=== PATIENT | male | born 1940 | race Caucasian/White ===

== ENCOUNTER 2020-10-25 00:20 | Emergency (ER) | payer MEDICARE, OTHER, MEDICAID, SELFPAY ==
[2020-10-25 00:26] VITALS: BP 130/69; PULSE 73; RESP 16; TEMP 33.6; O2SAT 94; BMI 29.5
[2020-10-25 00:39] VITALS: BP 143/78; PULSE 72; RESP 18; O2SAT 94
[2020-10-25 02:39] VITALS: BP 144/75; PULSE 66; RESP 18; O2SAT 100
--- NOTE | 2020-10-25 03:22 | XRR_ITS ---
PROCEDURE INFORMATION: Exam: XR Chest Exam date and time: 10/25/2020 3:22 AM Age: 79 years old Clinical indication: Cough; Additional info: Cough, possible aspiration? TECHNIQUE: Imaging protocol: XR of the chest. Views: 1 view. COMPARISON: ID Chest 1 [place] [id number] 09/05/2018 11:12 AM FINDINGS: Tubes, catheters and devices: The right PICC line has been removed. Lungs: Mild left basilar atelectasis and/or infiltrate and/or effusion. Pleural spaces: Unremarkable. No pleural effusion. No pneumothorax. Heart/Mediastinum: Unremarkable. No cardiomegaly. Bones/joints: Stable metallic fixation of the left humerus. XR/XR chest 1V portable [id number] IMPRESSION: Mild left basilar atelectasis and/or infiltrate and/or effusion.
[2020-10-25 04:00] VITALS: BP 161/79; PULSE 84; RESP 16; O2SAT 99
--- NOTE | 2020-10-25 04:26 | W.ED.GENADLT ---
HPI - General Adult General: Chief complaint: General Medical Stated complaint: POSSIBLE ASPIRATED Time Seen by Provider: 10/25/20 00:26 History of Present Illness: HPI narrative: 79-year-old male demented DNR residential patient. He presents after an episode of shortness of breath in the residential, during which he was sneezing several times in a row. Evidently he had a period of apnea following this. He seems to have recovered. He denies being in any pain. He denies having trouble breathing. No history of fever. The patient is a poor historian. Onset (ago): hour(s) Radiation: other Severity: moderate Quality: other Pain Consistency: other Relieving factors: rest Exacerbating factors: none Associated symptoms: Reports confusion (Baseline), cough and dyspnea; Deny chest pain or fevers/chills Review of Systems General: Reports: ROS unobtainable due to mental status Card: Denies: chest pain Resp: Reports: dyspnea Neuro: Reports: confusion (Baseline) Physical Exam Const: COMMON NORMALS: no acute distress and alert GENERAL APPEARANCE: cooperative ORIENTATION/CONSCIOUSNESS: Yes awake and Yes oriented to person HENMT: COMMON NORMALS: normocephalic HEAD & SCALP: normocephalic Eye: COMMON NORMALS: Equal, round and reactive pupils present and EOMs intact bilaterally PUPIL: Yes Equal, round and reactive pupils present Neck/C-Spine: GENERAL: Yes normal visual inspection Chest: COMMONS NORMALS: normal inspection of the chest Resp: COMMON NORMALS: normal respiratory effort, No use of accessory muscles and clear to auscultation bilaterally AUSCULTATION: clear to auscultation bilaterally Cardio: COMMON NORMALS: regular rate and regular rhythm RATE: regular rate RHYTHM: regular rhythm GI: COMMON NORMALS: Normal to inspection, nondistended, normoactive bowel sounds present, Soft to palpation and non-tender PALPATION: Yes Soft to palpation Neuro: SENSORIUM/ORIENTATION: Yes alert and Yes oriented to person Course Vital Signs: Vital signs: Vital Signs Temperature 92.5 F L 10/25/20 00:26 Pulse Rate 66 10/25/20 02:39 Respiratory Rate 18 10/25/20 02:39 Blood Pressure 144/75 10/25/20 02:39 Pulse Oximetry 100 10/25/20 02:39 MDM - General Adult MDM Narrative: Medical decision making narrative: 79-year-old demented male. He is breathing room air. Saturations are from 93 to 100% on room air. He complains of no pain. Chest x-ray shows left basilar atelectasis versus effusion, that is old, and apparent on previous film. No acute changes he will be allowed discharge Discharge Plan Discharge Patient Disposition: Home Clinical Impression: Acute dyspnea Condition: Stable Discharge Orders: Discharge ED (Routine); Ordered 10/25/20 Ordered By: Milan Porter Referrals: [facility] [Other] Patient Instructions: Dyspnea (ED) Activity Restrictions/Additional Instructions: Return for fever greater than 100, worsening shortness of breath, development of chest pain, any other concerning symptoms. Coding Level of Care Code ED Care Associate for Deshawn Bermudez
[2020-10-25 06:00] VITALS: BP 146/89; PULSE 74; RESP 18; O2SAT 96
--- NOTE | 2020-10-25 08:22 | PC.NURSE ---
0700- Received report assumed care. Report stated pt was waiting for Ride, and report called to correction. Continued to observe while in room 3. Breakfast served , warm Bare Hugger on, pt is alert and oriented.
--- NOTE | 2020-10-25 08:52 | PC.NURSE ---
Leaves with [facility]. Alert and stable, ready to go
== END 2020-10-25 08:54 | disposition home or self-care (01) ==
LOC: ER 01:02
PROVIDERS: Emergency Provider Emergency Medicine
DX: R06.00 Dyspnea, unspecified (principal)
CPT/HCPCS: 71045; 99283

== ENCOUNTER 2022-04-07 09:29 | Outpatient (CLI) | payer MEDICARE, OTHER, MEDICAID, SELFPAY ==
[2022-04-07 12:38] LABS: Adenovirus Not Detected (NOT DETECT); Chlamydia Pneumoniae Not Detected (NOT DETECT); Coronavirus 229E,HKU1,NL63,OC4 Not Detected (NOT DETECT); Human Metapneumovirus Not Detected (NOT DETECT); Human Rhinovirus/Enterovirus Detected (NOT DETECT); Influenza A Not Detected (NOT DETECT); Influenza A H1 Not Detected (NOT DETECT); Influenza A H1-2009 Not Detected (NOT DETECT); Influenza A H3 Not Detected (NOT DETECT); Influenza B Not Detected (NOT DETECT); Mycoplasma Pneumoniae Not Detected (NOT DETECT); Parainfluenza Virus Type 1 Not Detected (NOT DETECT); Parainfluenza Virus Type 2 Not Detected (NOT DETECT); Parainfluenza Virus Type 3 Not Detected (NOT DETECT); Parainfluenza Virus Type 4 Not Detected (NOT DETECT); Respiratory Syncytial Virus A Not Detected (NOT DETECT); Respiratory Syncytial Virus B Not Detected (NOT DETECT); SARS-COV-2 Not Detected (NOT DETECT)
[2022-04-07 12:41] LABS: Human Metapneumovirus Not Detected (NOT DETECT); Human Rhinovirus/Enterovirus Detected (NOT DETECT); Results from GEN
== END 2022-04-07 09:30 | disposition home or self-care (01) ==
LOC: LAB 09:30
PROVIDERS: Visit Provider Internal Medicine
DX: J06.9 Acute upper respiratory infection, unspecified (principal)
CPT/HCPCS: 87635; 87801

== ENCOUNTER 2023-03-23 08:53 | Outpatient (CLI) | payer MEDICARE, OTHER, MEDICAID, SELFPAY ==
--- NOTE | 2023-03-23 09:12 | USCV_ITS ---
Wiley Ruiz Age: 82 Gender: M : 1940 Exam Date: 03/23/2023 09:26 Ordering Phys: Stanford Johnson MD Technologist: BASIM Exam Location: [facility]_ Indication: Insufficiency Aortic Velocity @ SMA (cm/s) 88.1 RIGHT KIDNEY LEFT KIDNEY Velocity (cm/s) Velocity (cm/s) Sys/Brown Sys/Brown Resistive Index Resistive Index 112.8 / 14.0 0.88 Proximal Renal Artery 53.7 / 16.5 0.69 131.1 / 20.4 0.84 Mid Renal Artery 35.2 / 7.3 0.79 60.1 / 12.3 0.80 Distal Renal Artery 30.9 / 8.6 0.72 68.5 / 13.4 0.81 Hilar 75.2 / 11.6 0.85 17.7 / 4.2 0.76 Upper Pole 50.1 / 11.3 0.77 39.4 / 11.9 0.70 Mid Pole 24.5 / 7.8 0.68 59.7 / 13.7 0.77 Lower Pole 48.3 / 14.9 0.69 1.50 Renal Aortic Ratio 0.61 Accleration Index (cm/sec2) 1526.0 Hilar 1030.0 0 0 270.00 Upper Pole 961.00 815.00 Mid Pole 360.00 2776.0 Lower Pole 1121.0 0 0 CONCLUSIONS No sonographic evidence of hemodynamically significant renal artery stenosis bilaterally. No hydronephrosis in either kidney Pete Carter MD (Electronically Signed) Final Date: 23 March 2023 13:48 S
== END 2023-03-23 08:54 | disposition home or self-care (01) ==
LOC: RAD 08:53
PROVIDERS: Visit Provider Internal Medicine
DX: N28.9 Disorder of kidney and ureter, unspecified (principal); I70.1 Atherosclerosis of renal artery
CPT/HCPCS: 93975

== ENCOUNTER 2023-09-11 13:52 | Inpatient (IN) | payer MEDICARE, OTHER, MEDICAID, SELFPAY ==
[2023-09-11 13:54] VITALS: BP 163/76; PULSE 81; TEMP 36.5; O2SAT 95; BMI 29.0
--- NOTE | 2023-09-11 13:54 | ECG_ITS ---
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 Measurements Intervals [place] Rate: 79 P: 88 NV: 193 QRS: 53 QRSD: 90 T: 79 QT: 390 QTc: 449 Interpretive Statements SINUS RHYTHM POSSIBLE RIGHT VENTRICULAR CONDUCTION DELAY [RSR (QR) IN V1/V2] Compared to ECG 08/18/2017 05:11:02 Sinus bradycardia no longer present Electronically Signed On 09-11-2023 18:07:20 CDT by Malik Roy M.D. [email or web address]
[2023-09-11 14:22] LABS: Basophils % 0.2 %; Eosinophils # 0.9 10^3/uL (0.0-0.8); Hematocrit 31.3 % (37-53); Lymphocytes # 2.5 10^3/uL (0.8-4.8); Lymphocytes % 21.3 %; Mean Corpuscular HGB Conc 32.9 g/dL (30-55); Mean Corpuscular Hemoglobin 33.2 pg (27-33); Mean Platelet Volume 10.6 fL (7.4-10.4); Monocytes # 0.9 10^3/uL (0.2-0.9); Neutrophils # 7.26 10^3/uL (1.8-7.7); Neutrophils % 62.1 %; Nucleated Red Blood Cells % 0 %; Platelet Count 308 10^3/cmm (157-399); Red Cell Distribution Width 13.2 % (12.1-15.1); White Blood Count 11.68 10^3/uL (3.29-11.43)
--- NOTE | 2023-09-11 14:25 | XRR_ITS ---
PROCEDURE INFORMATION: Exam: XR Right Shoulder Exam date and time: 09/11/2023 2:52 PM Age: 82 years old Clinical indication: Injury or trauma; Fall; Blunt trauma (contusions or hematomas); Shoulder; Left; Additional info: Pain TECHNIQUE: Imaging protocol: Radiologic exam of the right shoulder. Views: 2 or more views. COMPARISON: CR XR chest 1V portable [id number] 10/25/2020 12:45 AM FINDINGS: Bones/joints: Osseous structures are intact. Negative for fracture or dislocation. Soft tissues: Normal. XR/XR shoulder RT min 2V* [id number] IMPRESSION: No acute findings.
--- NOTE | 2023-09-11 14:28 | ED_ITS ---
HPI - Extremity Problem 2 General: Chief complaint: Extremity Injury, Upper Stated complaint: fall Time Seen by Provider: 09/11/23 13:54 Source: patient Mode of arrival: ambulatory History of Present Illness: 82-year-old male presents to the emergen cy room complaining of right shoulder pain. He states he fell yesterday has a bruise on the right shoulder. Denies striking head denies loss of consciousness. MD Complaint: joint pain Course 2 Vital Signs: Vital signs: Vital Signs Temperature 97.7 F 09/11/23 13:54 Pulse Rate 75 09/11/23 15:16 Respiratory Rate 18 09/11/23 15:16 Blood Pressure 156/76 09/11/23 15:16 Pulse Oximetry 94 09/11/23 15:16 Oxygen Delivery Me thod Room Air 09/11/23 15:16 MDM - Extremity (Nontraumatic) Medical Decision Making Patient is elevated white count with signs of a cystitis has an indwelling [place] we got records from the shelter his creatinine is slightly above his usual baseline from the records received he also has a history in the past of E. coli ESBL. He has some dementia but they feel he is off his baseline today suspect that may be why he fell. Given his history of ESBL will admit the patient started on IV antibiotic discussed with hospitalist orders written Medical Records I reviewed the patient's medical records. Lab Data I reviewed the patient's lab results. 09/11/23 14:14 09/11/23 14:16 Radiology Impressions Shoulder X-Ray 09/11/23 14:25 IMPRESSION: No acute findings. Laboratory Results WBC 11.68 10^3/uL (3.29-11.43) H 09/11/23 14:14 RBC 3.10 10^6/uL (3.85-5.65) L 09/11/23 14:14 Hgb 10.30 g/dL (11.27-16.99) L 09/11/23 14:14 Hct 31.3 % (37-53) L 09/11/23 14:14 MCV 101.0 fl (82-101) 09/11/23 14:14 MCH 33.2 pg (27-33) H 09/11/23 14:14 MCHC 32.9 g/dL (30-55) 09/11/23 14:14 RDW 13.2 % (12.1-15.1) 09/11/23 14:14 Plt Count 308 10^3/cmm (157-399) 09/11/23 14:14 MPV 10.6 fL (7.4-10.4) H 09/11/23 14:14 Neut % (Auto) 62.1 % 09/11/23 14:14 Lymph % (Auto) 21.3 % 09/11/23 14:14 [place] % (Auto) 8.0 % 09/11/23 14:14 Eos % (Auto) 8.0 % 09/11/23 14:14 Baso % (Auto) 0.2 % 09/11/23 14:14 Neut # (Auto) 7.26 10^3/uL (1.8-7.7) 09/11/23 14:14 Lymph # (Auto) 2.5 10^3/uL (0.8-4.8) 09/11/23 14:14 [place] # (Auto) 0.9 10^3/uL (0.2-0.9) 09/11/23 14:14 Eos # (Auto) 0.9 10^3/uL (0.0-0.8) H 09/11/23 14:14 Baso # (Auto) 0.0 10^3/uL (0.0-0.1) 09/11/23 14:14 Nucleated RBC % (auto) 0 % 09/11/23 14:14 Nucleated RBCs # 0.0 /100WBC 09/11/23 14:14 Sodium 134 mmol/L (136-145) L 09/11/23 14:16 Potassium 5.3 mmol/L (3.5-5.1) H 09/11/23 14:16 Chloride 99 mmol/L (98-107) 09/11/23 14:16 Carbon Dioxide 25 mmol/L (22-29) 09/11/23 14:16 Anion Gap 15.3 (5-19) 09/11/23 14:16 BUN 42 mg/dL (8-23) H 09/11/23 14:16 Creatinine 1.7 mg/dL (0.7-1.2) H 09/11/23 14:16 GFR Calculation Not Reportable 09/11/23 14:16 Glucose 180 mg/dL (65-115) H 09/11/23 14:16 Calculated Osmolality 293 mOsm/kg (285-295) 09/11/23 14:16 Lactic Acid 1.4 mmol/L (0.5-2.2) 09/11/23 15:32 Calcium 8.5 mg/dL (8.5-10.5) 09/11/23 14:16 Total Bilirubin 0.2 mg/dL (0.15-1.2) 09/11/23 14:16 AST 5 U/L (0-40) 09/11/23 14:16 ALT < 5 U/L (0-41) 09/11/23 14:16 Alkaline Phosphatase 138 U/L (40-130) H 09/11/23 14:16 Creatine Kinase 63 U/L (39-308) 09/11/23 14:16 Total Protein 6.9 g/dL (6.6-8.7) 09/11/23 14:16 Albumin 3.2 g/dL (3.5-5.2) L 09/11/23 14:16 Globulin 3.7 g/dL (1.3-4.6) 09/11/23 14:16 Urine Color Yellow (Yellow) 09/11/23 14:09 Urine Appearance Hazy (CLEAR) A 09/11/23 14:09 Urine pH 8 (5-7) H 09/11/23 14:09 Ur Specific [place] 1.010 (1.005-1.030) 09/11/23 14:09 Urine Protein 3+ (Negative) H 09/11/23 14:09 Urine Glucose (UA) Norm (Normal) 09/11/23 14:09 Urine Ketones Negative (Negative) 09/11/23 14:09 Urine Blood 2+ (Negative) H 09/11/23 14:09 Urine Nitrate Positive (Negative) H 09/11/23 14:09 Urine Bilirubin 2+ (Negative) H 09/11/23 14:09 Prot Sulfosalicylic Acd Positive (Negative) 09/11/23 14:09 Urine Urobilinogen 8 mg/dL (Negative) H 09/11/23 14:09 Ur Leukocyte Esterase 2+ (Negative) H 09/11/23 14:09 Urine RBC 0-4 /hpf (0-2) H 09/11/23 14:09 Urine WBC 55-80 /hpf (0-5) H 09/11/23 14:09 Ur Squamous Epith Cells 0-4 /hpf (0-5) H 09/11/23 14:09 Ur Transition Epith Cell 0-4 /hpf 09/11/23 14:09 Triple Phos Crystals 10-15 /hpf H 09/11/23 14:09 Amorphous Sediment Not Reportable 09/11/23 14:09 Urine Bacteria 2+ /hpf (NONE) H 09/11/23 14:09 All radiology interpretation(s) finalized by discharge Discharge Plan Discharge Patient Disposition: Admitted As Inpatient Admit Provider: Deanna Montgomery Clinical Impression: Cystitis, Encephalopathy, Dementia Condition: Stable Coding Level of Care Code ED Metallographer for Deshawn Bermudez
--- NOTE | 2023-09-11 14:35 | PC.PHAR ---
Addendum entered by Felisa Burton 09/11/23 15:29: [facility], [facility] Original Note: [facility] L[facility] 2:35PM 09/11/23
[2023-09-11 14:41] LABS: Albumin Level 3.2 g/dL (3.5-5.2); Alkaline Phosphatase 138 U/L (40-130); Blood Urea Nitrogen 42 mg/dL (8-23); Calcium 8.5 mg/dL (8.5-10.5); Carbon Dioxide 25 mmol/L (22-29); Chloride 99 mmol/L (98-107); Creatine Phosphokinase 63 U/L (39-308); Creatinine Clr Calc Pharmacy 34.1944; Globulin 3.7 g/dL (1.3-4.6); Glucose 180 mg/dL (65-115); Osmolality Calculated 293 mOsm/kg (285-295); Sodium 134 mmol/L (136-145); Total Bilirubin 0.2 mg/dL (0.15-1.2); Total Protein 6.9 g/dL (6.6-8.7)
[2023-09-11 14:44] LABS: Anion Gap 15.3 (5-19); Potassium 5.3 mmol/L (3.5-5.1)
[2023-09-11 14:48] LABS: Urine Appearance Hazy (CLEAR); Urine Color Yellow (Yellow); pH Urine 8 (5-7)
[2023-09-11 14:49] LABS: Bilirubin Urine 2+ (Negative); Blood Urine 2+ (Negative); Glucose Urine UA Norm (Normal); Ketones Urine Negative (Negative); Nitrate Urine Positive (Negative); Protein Urine 3+ (Negative); Sulfosalicylic Acid Urine Positive (Negative)
[2023-09-11 14:50] LABS: Add Urine Microscopic? YES; Leukocyte Esterase Urine 2+ (Negative); Urobilinogen Urine 8 mg/dL (Negative)
[2023-09-11 14:51] LABS: RBC Urine 0-4 /hpf (0-2)
[2023-09-11 14:52] LABS: Bacteria Urine 2+ /hpf; Squamous Epithelial Cell Urine 0-4 /hpf (0-5); Transitional Epi Cells Urine 0-4 /hpf; WBC Urine 55-80 /hpf (0-5)
[2023-09-11 14:52] LABS: Alanine Aminotransferase < 5 U/L (0-41); Aspartate Amino Transferase 5 U/L (0-40)
[2023-09-11 14:53] LABS: Add Urine Culture? Yes
[2023-09-11] MEDS: HYDROcodone-acetaminophen 5-325 mg Tablet 1 TAB PO (15:06)
[2023-09-11 15:16] VITALS: BP 156/76; PULSE 75; RESP 18; O2SAT 94
[2023-09-11 16:02] LABS: Lactic Sepsis W/Reflex 1.4 mmol/L (0.5-2.2)
[2023-09-11] MEDS: piperacillin-tazobactam 3.375 GM in sodium chloride 0.9% (plus) 50 ML IV (16:06)
[2023-09-11] MEDS: sodium chloride 0.9% 1,000 ML 999 ML IV (16:25)
--- NOTE | 2023-09-11 17:29 | PM.HP ---
Providers/Chief Complaint Chief Complaint: fall History of Present Illness Wiley Ruiz is a 82 year old male Medications/Allergies Home Medications Medication Instructions Recorded Confirmed Last Taken Type acetaminophen 325 mg tablet 650 mg PO Q6H PRN PAIN OR ELEVATED 09/11/23 09/11/23 09/10/23 History TEMP aluminum-mag hydroxide-simethicone 30 ml PO Q8H PRN UPSET STOMACH 09/11/23 09/11/23 Unknown History 200 mg-200 mg-20 mg/5 mL oral susp aspirin 81 mg tablet,delayed 81 mg PO DAILY 09/11/23 09/11/23 09/11/23 History release atorvastatin 20 mg tablet 20 mg PO BEDTIME 09/11/23 09/11/23 09/10/23 History bisacodyl 10 mg rectal suppository 10 mg SC DAILY PRN Constipation 09/11/23 09/11/23 Unknown History cholecalciferol (vitamin D3) 1,250 1,250 mcg PO Q7D 09/11/23 09/11/23 09/06/23 History mcg (50,000 unit) tablet clonidine HCl 0.1 mg tablet 0.1 mg PO BID PRN ELEVATED BP 09/11/23 09/11/23 Unknown History cyanocobalamin (vitamin B-12) 1,000 mcg PO DAILY 09/11/23 09/11/23 09/11/23 History 1,000 mcg tablet (Vitamin B-12) furosemide 20 mg tablet 20 mg PO .QODAM 09/11/23 09/11/23 09/10/23 History glucagon 1 mg solution for 1 mg IM ONCE PRN Anaphylaxis 09/11/23 09/11/23 Unknown History injection (Glucagon Emergency Kit) insulin glargine 100 unit/mL (3 38 unit SUBCUT BEDTIME 09/11/23 09/11/23 09/10/23 History mL) subcutaneous pen (Lantus Solostar U-100 Insulin) insulin lispro 100 unit/mL 12 unit SUBCUT TID 09/11/23 09/11/23 09/11/23 History subcutaneous pen ipratropium 0.5 mg-albuterol 3 mg 3 ml inhalation Q6H PRN Shortness 09/11/23 09/11/23 Unknown History (2.5 mg base)/3 mL nebulization Of Breath soln magnesium hydroxide 400 mg/5 mL 30 ml PO DAILY PRN Constipation 09/11/23 09/11/23 09/10/23 History oral suspension (Milk of Magnesia) memantine 14 mg capsule 14 mg PO QAM 09/11/23 09/11/23 09/11/23 History sprinkle,extended release 24hr metoprolol succinate 50 mg 50 mg PO QAM 09/11/23 09/11/23 09/11/23 History tablet,extended release 24 hr naloxone 2 mg/2 mL syringe kit 2 mg IM Q2M PRN OVERDOSE 09/11/23 09/11/23 Unknown History omeprazole 20 mg capsule,delayed 20 mg PO QAM 09/11/23 09/11/23 09/11/23 History release ondansetron HCl 4 mg tablet 4 mg PO Q4H PRN Nausea And Vomiting 09/11/23 09/11/23 Unknown History phenazopyridine 95 mg tablet 95 mg PO BID 09/11/23 09/11/23 09/11/23 History polyethylene glycol 3350 17 17 g PO BID 09/11/23 09/11/23 09/11/23 History gram/dose oral powder (Miralax) sennosides 8.6 mg-docusate sodium 2 tab-cap PO BID 09/11/23 09/11/23 09/11/23 History 50 mg tablet (Senokot-S) tramadol 50 mg tablet 50 mg PO Q8H PRN Pain 09/11/23 09/11/23 09/10/23 History trospium 20 mg tablet 20 mg PO DAILY 09/11/23 09/11/23 09/11/23 History Allergies Allergy/AdvReac Type Severity Reaction Status Date / Time citalopram [From Celexa] Allergy Unknown Verified 09/11/23 15:06 donepezil [From Aricept] Allergy Unknown Verified 09/11/23 15:06 Vitals/I&O/Wt Last Vital Signs Temp 97.7 F 09/11/23 13:54 Pulse 75 09/11/23 15:16 Resp 18 09/11/23 15:16 BP 156/76 09/11/23 15:16 Pulse Ox 94 09/11/23 15:16 O2 Del Method Room Air 09/11/23 15:16 Weight last 48 hrs Weight 81.647 kg Data 09/11/23 14:14 09/11/23 14:16 Micro: Microbiology 09/11/23 15:32 Blood Culture - Preliminary Blood SPECIMEN COLLECTED 09/11/23 15:32 Blood Culture - Preliminary Blood SPECIMEN COLLECTED Coding Level of Care Code Acute Code for [facility]
[2023-09-11] MEDS: meropenem 1,000 MG in sodium chloride 0.9% (plus) 50 ML 100 MG IV (18:13)
[2023-09-11 18:33] VITALS: BP 145/71; PULSE 77; RESP 18; O2SAT 95
[2023-09-11] MEDS: diphenhydrAMINE 50 mg/mL SDV 1mL 12.5 MG IVP (18:38)
[2023-09-11 19:25] VITALS: BP 175/76; PULSE 77; RESP 18; TEMP 36.4; O2SAT 93
--- NOTE | 2023-09-11 20:14 | PM.HP ---
Providers/Chief Complaint Admitting Physician: Deanna Montgomery MD Chief Complaint: fall History of Present Illness Wiley Ruiz is a 82 year old male With past medical history of UTI ESBL, dementia, hyperlipidemia, major depressive disorder, iron deficiency anemia, dysphagia, COPD, GERD, BPH, type 2 diabetes mellitus, hypertension, CKD, urinary retention on chronic Sandoval, vitamin D deficiency who presented to the hospital today after he sustained a fall at the custodial. He complained of right shoulder pain. He also was slightly lethargic. On arrival to ER shoulder x-ray was obtained which showed no acute findings. Patient denied hitting his head anywhere. I called the custodial and spoke to patient's nurse. She said that earlier today when he tried to get up out of bed to eat his peanut butter jelly sandwich he lost his balance tripped and fell. He did not hit his head anywhere. He did not complain of any dizziness prior to falling. He did not lose consciousness. She also says for the last few weeks he has had a lot of cough and it has been productive of yellow to bianchi sputum. He has had a fever 99 Fahrenheit. He also has been having nausea vomiting for the last few days. However he has not vomited today. Records reviewed from custodial. [facility] stated that patient was mentally slightly off his baseline. WBC 11.16, hemoglobin 10.3, potassium 5.3, sodium 134, creatinine 1.7, UA positive for 2+ blood, nitrate, 2+ leukocyte esterase, 2+ bacteria, 55-80 WBCs. When seen patient states he is at the hospital knows his name date of but does not know who the president is. Unable to tell me what year it is. Tells me he is feeling okay at this time. He said earlier he was having shoulder pain however that has resolved by now. Patient is a poor historian. Medications/Allergies Home Medications Medication Instructions Recorded Confirmed Last Taken Type acetaminophen 325 mg tablet 650 mg PO Q6H PRN PAIN OR ELEVATED 09/11/23 09/11/23 09/10/23 History TEMP aluminum-mag hydroxide-simethicone 30 ml PO Q8H PRN UPSET STOMACH 09/11/23 09/11/23 Unknown History 200 mg-200 mg-20 mg/5 mL oral susp aspirin 81 mg tablet,delayed 81 mg PO DAILY 09/11/23 09/11/23 09/11/23 History release atorvastatin 20 mg tablet 20 mg PO BEDTIME 09/11/23 09/11/23 09/10/23 History bisacodyl 10 mg rectal suppository 10 mg DC DAILY PRN Constipation 09/11/23 09/11/23 Unknown History cholecalciferol (vitamin D3) 1,250 1,250 mcg PO Q7D 09/11/23 09/11/23 09/06/23 History mcg (50,000 unit) tablet clonidine HCl 0.1 mg tablet 0.1 mg PO BID PRN ELEVATED BP 09/11/23 09/11/23 Unknown History cyanocobalamin (vitamin B-12) 1,000 mcg PO DAILY 09/11/23 09/11/23 09/11/23 History 1,000 mcg tablet (Vitamin B-12) furosemide 20 mg tablet 20 mg PO .QODAM 09/11/23 09/11/23 09/10/23 History glucagon 1 mg solution for 1 mg IM ONCE PRN Anaphylaxis 09/11/23 09/11/23 Unknown History injection (Glucagon Emergency Kit) insulin glargine 100 unit/mL (3 38 unit SUBCUT BEDTIME 09/11/23 09/11/23 09/10/23 History mL) subcutaneous pen (Lantus Solostar U-100 Insulin) insulin lispro 100 unit/mL 12 unit SUBCUT TID 09/11/23 09/11/23 09/11/23 History subcutaneous pen ipratropium 0.5 mg-albuterol 3 mg 3 ml inhalation Q6H PRN Shortness 09/11/23 09/11/23 Unknown History (2.5 mg base)/3 mL nebulization Of Breath soln magnesium hydroxide 400 mg/5 mL 30 ml PO DAILY PRN Constipation 09/11/23 09/11/23 09/10/23 History oral suspension (Milk of Magnesia) memantine 14 mg capsule 14 mg PO QAM 09/11/23 09/11/23 09/11/23 History sprinkle,extended release 24hr metoprolol succinate 50 mg 50 mg PO QAM 09/11/23 09/11/23 09/11/23 History tablet,extended release 24 hr naloxone 2 mg/2 mL syringe kit 2 mg IM Q2M PRN OVERDOSE 09/11/23 09/11/23 Unknown History omeprazole 20 mg capsule,delayed 20 mg PO QAM 09/11/23 09/11/23 09/11/23 History release ondansetron HCl 4 mg tablet 4 mg PO Q4H PRN Nausea And Vomiting 09/11/23 09/11/23 Unknown History phenazopyridine 95 mg tablet 95 mg PO BID 09/11/23 09/11/23 09/11/23 History polyethylene glycol 3350 17 17 g PO BID 09/11/23 09/11/23 09/11/23 History gram/dose oral powder (Miralax) sennosides 8.6 mg-docusate sodium 2 tab-cap PO BID 09/11/23 09/11/23 09/11/23 History 50 mg tablet (Senokot-S) tramadol 50 mg tablet 50 mg PO Q8H PRN Pain 09/11/23 09/11/23 09/10/23 History trospium 20 mg tablet 20 mg PO DAILY 09/11/23 09/11/23 09/11/23 History Allergies Allergy/AdvReac Type Severity Reaction Status Date / Time citalopram [From Celexa] Allergy Unknown Verified 09/11/23 15:06 donepezil [From Aricept] Allergy Unknown Verified 09/11/23 15:06 Vitals/I&O/Wt Last Vital Signs Temp 97.7 F 09/11/23 13:54 Pulse 77 09/11/23 18:33 Resp 18 09/11/23 18:33 BP 145/71 09/11/23 18:33 Pulse Ox 95 09/11/23 18:33 O2 Del Method Room Air 09/11/23 15:16 Weight last 48 hrs Weight 81.647 kg Physical Exam Narrative: General: Alert oriented x3, patient seen laying in bed, pleasantly confused however able to provide some history HEENT: Normocephalic, atraumatic, EOMI, breathing room air Cardio: Regular rate rhythm, normal S1-S2 Respiratory: Good bilateral air entry, no wheezes no rhonchi appreciated GI: Abdomen soft, nontender, nondistended, bowel sounds + Extremities: no edema b/l le Data 09/11/23 14:14 09/11/23 14:16 Micro: Microbiology 09/11/23 15:32 Blood Culture - Preliminary Blood SPECIMEN COLLECTED 09/11/23 15:32 Blood Culture - Preliminary Blood SPECIMEN COLLECTED A&P Assessment and plan (1) UTI (urinary tract infection): UA abnormal Remove old sandoval and replace with new, culture tip hx of e.coli esbl sensitive only to carbapenem class, place on meropenem check urine culture check blood culture continue ns 75 c/hr continue trospium (2) History of ESBL E. coli infection: see above (3) Cystitis: see above (4) Fall: did not hit his head right shoulder xray shows no acute pathology will need PT eval (5) Right shoulder pain: see above (6) Urinary retention: chronic sandoval in place will replace (7) BPH (benign prostatic hyperplasia): chronic sandoval (8) Chronic indwelling Sandoval catheter: see above (9) Dementia: As per [facility] has some sundowning occasionally. Continue to monitor Place sitter if needed. (10) HLD (hyperlipidemia): atrovastatin 20 daily (11) MDD (major depressive disorder): stable at this time (12) COPD (chronic obstructive pulmonary disease): not in exacerbation, on room air (13) GERD (gastroesophageal reflux disease): omeprazole 20 daily (14) Type 2 diabetes mellitus: lantus 30 units nightly, dose reduced 2/2 to ALIZA and n/v history mod dose intensity ssi check BG AC/HS (15) CKD (chronic kidney disease): Dont have baseline creatitinine Today 1.7. Continue fluids, pt appears dehydrated (16) Vitamin D deficiency: continue vit d (17) Dysphagia: On regular diet at [facility] with small easy to chew bite sized food continue above (18) Hypertension: takes PRN clonidine. Will hold off for now continue metoprolol 50 daily may add amlodipine if needed i would avoid clonidine in elderly (19) Nausea & vomiting: pt appears dehydrated will continue on ns 75 cc/hr hold home lasix zofran q4h prn n/v Plan Given patient's history of nausea vomiting and coughs productive of sputum. I will treat for COPD exacerbation. Placed on DuoNeb every 6 hours as needed, sputum Gram stain culture. I will check a chest x-ray. Meropenem should be sufficient. If chest x-ray shows evidence of consolidation or infiltrate, I may add for MRSA coverage with vancomycin. DNR/DNI as per paperwork from [place]. and daughter in agreement with DNR/DNI for now. and daughter updated via phone. Attestations Medical Necessity Statement*: > 2 midnight stay for mgmt of UTI Diagnoses UTI (urinary tract infection) N39.0 History of ESBL E. coli infection Z86.19 Cystitis N30.90 Fall W19.XXXA Right shoulder pain M25.511 Urinary retention R33.9 BPH (benign prostatic hyperplasia) N40.0 Chronic indwelling Sandoval catheter Z97.8 Dementia F03.90 HLD (hyperlipidemia) E78.5 MDD (major depressive disorder) F32.9 COPD (chronic obstructive pulmonary disease) J44.9 GERD (gastroesophageal reflux disease) K21.9 Type 2 diabetes mellitus E11.9 CKD (chronic kidney disease) N18.9 Vitamin D deficiency E55.9 Dysphagia R13.10 Hypertension I10 Nausea & vomiting R11.2
--- NOTE | 2023-09-11 20:38 | XRR_ITS ---
PROCEDURE INFORMATION: Exam: XR Chest Exam date and time: 09/11/2023 8:46 PM Age: 82 years old Clinical indication: Other: R/O pna TECHNIQUE: Imaging protocol: Radiologic exam of the chest. Views: 1 view. COMPARISON: CR XR chest 1V portable [id number] 10/25/2020 12:45 AM FINDINGS: Lungs: Curvilinear atelectasis or scarring at the left lung base. No consolidation. Pleural spaces: Unremarkable. No pleural effusion. No pneumothorax. Heart/Mediastinum: Unremarkable. No cardiomegaly. Bones/joints: Unremarkable. XR/XR chest 1V portable [id number] IMPRESSION: No acute findings.
[2023-09-11 20:42] LABS: Glucose Point of Care 109 mg/dL (70-110)
[2023-09-11 20:54] VITALS: BMI 28.5
[2023-09-11 21:19] LABS: Thyroid Stimulating Hormone 4.41 uIU/mL (0.27-4.20)
[2023-09-11 21:27] VITALS: BP 143/76
[2023-09-11 21:50] LABS: Estmated Average Glucose 120; Hemoglobin A1C 5.8 % (4.0-6.0)
[2023-09-11] MEDS: sodium chloride 0.9% 1,000 ML 100 ML IV (22:07)
[2023-09-11] MEDS: atorvastatin 40 mg Tablet 20 MG PO (22:08)
[2023-09-11] MEDS: heparin 5,000 unit/mL INJ 1 mL 5000 UNIT SUBCUT (22:08)
[2023-09-12] VITALS (9 sets, daily range): BP systolic 108–165; BP diastolic 57–76; PULSE 67–71; RESP 16–20; TEMP 36.5–36.9; O2SAT 91–94; BMI 29.1
[2023-09-12] MEDS: meropenem 500 MG in sodium chloride 0.9% (plus) 50 ML 100 MG IV ×3 (01:08→17:46)
[2023-09-12] MEDS: morphine IR 15 mg Tablet PO (01:08)
[2023-09-12 05:08] LABS: Basophils % 0.4 %; Eosinophils % 11.7 %; Hematocrit 31.7 % (37-53); Lymphocytes # 2.3 10^3/uL (0.8-4.8); Lymphocytes % 27.9 %; Mean Corpuscular HGB Conc 30.6 g/dL (30-55); Mean Corpuscular Hemoglobin 32.2 pg (27-33); Mean Corpuscular Volume 105.3 fl (82-101); Mean Platelet Volume 10.5 fL (7.4-10.4); Monocytes # 0.6 10^3/uL (0.2-0.9); Monocytes % 7.5 %; Neutrophils # 4.29 10^3/uL (1.8-7.7); Neutrophils % 52.1 %; Nucleated Red Blood Cells % 0 %; Platelet Count 267 10^3/cmm (157-399); Red Blood Count 3.01 10^6/uL (3.85-5.65); Red Cell Distribution Width 13.2 % (12.1-15.1); White Blood Count 8.23 10^3/uL (3.29-11.43)
[2023-09-12 05:31] LABS: Anion Gap 14.9 (5-19); Blood Urea Nitrogen 38 mg/dL (8-23); C Reactive Protein 6.1 mg/L (0.0-4.9); Calcium 8.4 mg/dL (8.5-10.5); Carbon Dioxide 24 mmol/L (22-29); Chloride 105 mmol/L (98-107); Creatine Phosphokinase 43 U/L (39-308); Glucose 76 mg/dL (65-115); Magnesium 2.4 mg/dL (1.7-2.3); Osmolality Calculated 296 mOsm/kg (285-295); Phosphorus 3.1 mg/dL (2.5-4.5); Potassium 4.9 mmol/L (3.5-5.1); Sodium 139 mmol/L (136-145)
[2023-09-12 05:32] LABS: Creatinine Clr Calc Pharmacy 34.2435
--- NOTE | 2023-09-12 05:39 | PC.NURSE ---
Verbal orders received from Dr. Laird to replace Morelos catheter, old Morelos catheter removed and tip of catheter noted to be intact but purulent, 16 Indonesian Morelos catheter placed 10 ml balloon inflated, patient tolerated well, 200 ml purulent urine returned. Telephone orders received to hold night time dose of 30 units of lantus, and change memantine dose to 5 mg po BID.
[2023-09-12] MEDS: metoprolol succinate ER (24 HR) 50 mg Tablet PO (05:56)
[2023-09-12 06:38] LABS: Glucose Point of Care 59 mg/dL (70-110)
[2023-09-12 07:40] LABS: Glucose Point of Care 63 mg/dL (70-110)
[2023-09-12] MEDS: cyanocobalamin 1,000 mcg Tablet 1000 MCG PO (08:27)
[2023-09-12] MEDS: sodium chloride 0.9% 1,000 ML 100 ML IV (08:27)
[2023-09-12] MEDS: memantine 5 mg tablet PO ×2 (08:27→17:46)
[2023-09-12] MEDS: sennosides-docusate Tablet 1 TAB PO (08:27)
[2023-09-12] MEDS: heparin 5,000 unit/mL INJ 1 mL 5000 UNIT SUBCUT ×2 (08:27→21:57)
[2023-09-12] MEDS: aspirin 81 mg EC Tablet PO (08:27)
[2023-09-12] MEDS: pantoprazole DR 40 mg Tablet PO (08:27)
[2023-09-12 08:30] LABS: Glucose Point of Care 58 mg/dL (70-110)
[2023-09-12 08:30] LABS: Glucose Point of Care 63 mg/dL (70-110)
[2023-09-12] MEDS: dextrose 10% 1,000 ML 100 ML IV (08:39)
[2023-09-12 09:18] LABS: Glucose Point of Care 81 mg/dL (70-110)
--- NOTE | 2023-09-12 09:21 | PC.CHAP ---
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 [] Patient/Family/Request visit [] Outpatient visit [] Follow-up visit [] Physician referral [] Code/Alert [] Routine visit [] Staff referral [] Actively dying [x] Patient sleeping [] Family support [] [] Out of room [] Palliative care [] [] Receiving care in room [] Pre-surgical visit [] Trauma [] Long length of stay [] ICU visit [] Other: Relational/Emotional Strength [] Patient feels connected with others/family/visitors/staff [] Distress [] Loneliness/isolation [] Abandonment Spirituality of Patient [] Person of Tiny [] Attends Cheondoism of their Tiny [] Believes in Prayer [] Reads Bible or Moravian materials [] There are Spiritual issues to be addressed Delinquency Prevention Officer Interventions [] Prayer [] Active listening [] Non-anxious presence [] Spiritual/emotional support [] Crisis/trauma care [] Spiritual counseling [] Bereavement support [] Provided bereavement packet [] Provided Bible/devotional materials [] Provided toy/stuffed animal, coloring book to patient or family member [] Provided Communion [] Anointing/[place] [] Salvation [] Completed spiritual assessment [] Other: Impact on Illness or Injury [] Angry [] Fearful [] Anxious [] Often cries [] Exhaustion [] Unable to work [] Unable to attend evangelical [] Unable to walk/stand [] Unable to read [] Unable to drive [] Unable to eat/drink [] Unable to sleep [] Unable to be with family [] Patient intubated [] Other: Summary Time spent with patient
--- NOTE | 2023-09-12 09:56 | P.PN_ITS ---
Subjective 2 Subjective: Patient is a poor historian but not endorsing any active complaints or pain When asked about his date of , he was able to tell me correctly No active sign of confusion Creatinine is 1.7 today Patient is able to tell me that [facility] is [facility] [place] [facility] [place] Patient became hypoglycemic, insulin was held, I will start him on D10 IV fluids Vitals/I&O/Wt Last Vital Signs Temp 97.8 F 09/12/23 07:53 Pulse 68 09/12/23 09:04 Resp 18 09/12/23 09:04 BP 154/76 09/12/23 07:53 Pulse Ox 94 09/12/23 09:04 O2 Del Method Nasal Cannula 09/12/23 09:04 O2 Flow Rate 2 09/12/23 09:04 09/11/23 09/12/23 09/12/23 22:59 06:59 14:59 Intake Total 1220 / 1220 250 / 1470 2240 / 2240 Output Total 1000 / 1000 Balance 1220 / 1220 -750 / 470 2240 / 2240 Weight last 48 hrs Weight 81.902 kg Weight 80.195 kg Weight 81.647 kg Physical Exam 2 Narrative: Clinical signs of dehydration Awake and alert No significant signs of hypoglycemia Hemodynamic stable currently on 1.5 to 2 L of oxygen via nasal cannula Grade 1 hypertension Abdomen is soft No acute Rester distress No active wheezing or crackles Urinary Catheter Management: Morelos: Cath Placed During This Visit: yes Reason for Continuing Indwelling Catheter: Chronic Indwelling Urinary Catheter on Admission Urinary Catheter Date of Insertion: 09/12/23 Urinary Catheter Time of Insertion: 04:15 Data 09/12/23 04:53 09/12/23 04:53 Micro: Microbiology 09/11/23 14:09 Urine Culture - Preliminary Urine,Clean Catch Gram Negative Rods Gram Negative Rods#2 09/11/23 15:32 Blood Culture - Preliminary Blood SPECIMEN COLLECTED 09/11/23 15:32 Blood Culture - Preliminary Blood SPECIMEN COLLECTED A&P Assessment and plan (1) MDD (major depressive disorder): (2) Hypertension: (3) Type 2 diabetes mellitus: (4) Nausea & vomiting: (5) Chronic indwelling Morelos catheter: (6) UTI (urinary tract infection): (7) BPH (benign prostatic hyperplasia): (8) History of ESBL E. coli infection: (9) Right shoulder pain: (10) Encephalopathy: (11) Dementia: (12) COPD (chronic obstructive pulmonary disease): (13) Acute kidney injury superimposed on chronic kidney disease: Plan Hypoglycemia: Started D10 IV fluids at 100 mill per hour will check sugar every hour Acute on chronic kidney disease Continue D10 IV fluids for now Patient clinically is extremely dehydrated Recent fall: No sign of rhabdomyolysis: CPK within normal limit Check free T4 abnormal TSH noted Chronic indwelling catheter, Urine culture growing gram-negative jelani history of ESBL, continue meropenem at this point, he is afebrile, Type 2 diabetes, Hemoglobin A1c is 5.8 Considering chronic kidney disease this patient should be on a very low-dose insulin he takes very high-dose 38 units of Lantus along sliding scale Metabolic encephalopathy: Resolved Uses a walker for ambulation Disposition: [place] [facility] [place] [facility] Attestations 2 Medical Necessity Statement*: Discharge likely tomorrow Diagnoses MDD (major depressive disorder) F32.9 Hypertension I10 Type 2 diabetes mellitus E11.9 Nausea & vomiting R11.2 Chronic indwelling Morelos catheter Z97.8 UTI (urinary tract infection) N39.0 BPH (benign prostatic hyperplasia) N40.0 History of ESBL E. coli infection Z86.19 Right shoulder pain M25.511 Encephalopathy G93.40 Dementia F03.90 COPD (chronic obstructive pulmonary disease) J44.9 Acute kidney injury superimposed on chronic kidney disease N17.9; N18.9
[2023-09-12 11:01] LABS: Glucose Point of Care 193 mg/dL (70-110)
[2023-09-12] MEDS: insulin lispro 100 unit/1 mL SUBCUT (11:47)
[2023-09-12 12:12] LABS: Add Urine Microscopic? YES; Bilirubin Urine Neg (Negative); Blood Urine 3+ (Negative); Glucose Urine UA Norm (Normal); Ketones Urine Negative (Negative); Leukocyte Esterase Urine 2+ (Negative); Nitrate Urine Negative (Negative); Protein Urine 1+ (Negative); Urine Appearance Cloudy (CLEAR); Urine Color Yellow (Yellow); Urobilinogen Urine Neg (Negative); pH Urine 6.5 (5-7)
[2023-09-12 12:13] LABS: Add Urine Culture? Yes; Bacteria Urine TRACE /hpf; RBC Urine 0-4 /hpf (0-2); Squamous Epithelial Cell Urine 0-4 /hpf (0-5); Transitional Epi Cells Urine 0-4 /hpf; WBC Urine TOO NUMEROUS TO CNT /hpf (0-5)
[2023-09-12 13:32] LABS: Glucose Point of Care 130 mg/dL (70-110)
[2023-09-12] MEDS: acetaminophen 500 mg Tablet PO (16:34)
[2023-09-12 16:37] LABS: Glucose Point of Care 80 mg/dL (70-110)
[2023-09-12 21:22] LABS: Glucose Point of Care 136 mg/dL (70-110)
[2023-09-12] MEDS: atorvastatin 40 mg Tablet 20 MG PO (21:58)
[2023-09-13] VITALS (7 sets, daily range): BP systolic 147–163; BP diastolic 67–75; PULSE 66–73; RESP 17–18; TEMP 36.4–36.8; O2SAT 92–95
[2023-09-13] MEDS: meropenem 500 MG in sodium chloride 0.9% (plus) 50 ML 100 MG IV ×2 (01:37→09:25)
[2023-09-13 01:48] LABS: Glucose Point of Care 143 mg/dL (70-110)
[2023-09-13 05:30] LABS: Basophils % 0.2 %; Eosinophils % 11.1 %; Lymphocytes # 2.3 10^3/uL (0.8-4.8); Lymphocytes % 24.9 %; Mean Corpuscular Hemoglobin 31.6 pg (27-33); Mean Platelet Volume 10.7 fL (7.4-10.4); Monocytes # 0.8 10^3/uL (0.2-0.9); Monocytes % 8.4 %; Neutrophils # 5.08 10^3/uL (1.8-7.7); Neutrophils % 55.1 %; Nucleated Red Blood Cells % 0 %; Platelet Count 274 10^3/cmm (157-399); Red Blood Count 2.94 10^6/uL (3.85-5.65); White Blood Count 9.24 10^3/uL (3.29-11.43)
[2023-09-13 05:52] LABS: Anion Gap 12.5 (5-19); Blood Urea Nitrogen 29 mg/dL (8-23); Calcium 8.8 mg/dL (8.5-10.5); Carbon Dioxide 26 mmol/L (22-29); Chloride 101 mmol/L (98-107); Glucose 115 mg/dL (65-115); Osmolality Calculated 285 mOsm/kg (285-295); Potassium 5.5 mmol/L (3.5-5.1); Sodium 134 mmol/L (136-145)
[2023-09-13 05:54] LABS: Creatinine Clr Calc Pharmacy 40.7119
[2023-09-13] MEDS: metoprolol succinate ER (24 HR) 50 mg Tablet PO (06:12)
[2023-09-13 06:37] LABS: Glucose Point of Care 113 mg/dL (70-110)
[2023-09-13 07:18] LABS: Glucose Point of Care 112 mg/dL (70-110)
[2023-09-13] MEDS: heparin 5,000 unit/mL INJ 1 mL 5000 UNIT SUBCUT (09:24)
[2023-09-13] MEDS: sodium polystyrene sulfonate 15 gm/60 mL Btl PO (09:24)
[2023-09-13] MEDS: memantine 5 mg tablet PO (09:24)
[2023-09-13] MEDS: aspirin 81 mg EC Tablet PO (09:24)
[2023-09-13] MEDS: sennosides-docusate Tablet 1 TAB PO (09:24)
[2023-09-13] MEDS: pantoprazole DR 40 mg Tablet PO (09:24)
[2023-09-13] MEDS: cyanocobalamin 1,000 mcg Tablet 1000 MCG PO (09:24)
--- NOTE | 2023-09-13 09:35 | PC.CHAP ---
Pastoral Care Encounter/Spiritual Assessment Type of Contact [] Declined furniture crater visit [] Patient/Family/Request visit [] Outpatient visit [] Follow-up visit [] Physician referral [] Code/Alert [] Routine visit [] Staff referral [] Actively dying [] Patient sleeping [] Family support [] [] Out of room [] Palliative care [] [x] Receiving care in room [] Pre-surgical visit [] Trauma [] Long length of stay [] ICU visit [] Other: Relational/Emotional Strength [] Patient feels connected with others/family/visitors/staff [] Distress [] Loneliness/isolation [] Abandonment Spirituality of Patient [] Person of Tiny [] Attends Oriental Orthodox of their Tiny [] Believes in Prayer [] Reads Bible or Sabianist materials [] There are Spiritual issues to be addressed Vault Maker Interventions [x] Prayer [] Active listening [] Non-anxious presence [] Spiritual/emotional support [] Crisis/trauma care [] Spiritual counseling [] Bereavement support [] Provided bereavement packet [] Provided Bible/devotional materials [] Provided toy/stuffed animal, coloring book to patient or family member [] Provided Communion [] Anointing/[place] [] Salvation [] Completed spiritual assessment [] Other: Impact on Illness or Injury [] Angry [] Fearful [] Anxious [] Often cries [] Exhaustion [] Unable to work [] Unable to attend adventist [] Unable to walk/stand [] Unable to read [] Unable to drive [] Unable to eat/drink [] Unable to sleep [] Unable to be with family [] Patient intubated [] Other: Summary Time spent with patient 5 min
--- NOTE | 2023-09-13 09:48 | PM.DCS ---
Discharge Providers Date of Admission: 09/11/23 17:57 Date of Discharge: September 13, 2023 Attending Provider at Admission: Deanna Montgomery MD Attending Provider at Discharge: Deanna Montgomery MD Diagnoses at Discharge Discharge Diagnosis (1) MDD (major depressive disorder): Status: Acute (2) Hypertension: Status: Acute (3) Type 2 diabetes mellitus: Status: Acute (4) Nausea & vomiting: Status: Acute (5) Chronic indwelling Morelos catheter: Status: Acute (6) UTI (urinary tract infection): Status: Acute (7) BPH (benign prostatic hyperplasia): Status: Acute (8) History of ESBL E. coli infection: Status: Acute (9) Right shoulder pain: Status: Acute (10) Encephalopathy: Status: Acute (11) Dementia: Status: Acute (12) COPD (chronic obstructive pulmonary disease): Status: Acute (13) Acute kidney injury superimposed on chronic kidney disease: Status: Acute Reason for Visit Reason for Visit: fall Hospital Course Hospital Course 82-year-old male who presented from the [facility] with history of UTI ESBL, dementia, dyslipidemia, iron deficiency anemia, GERD, COPD, BPH, type 2 diabetes, urinary retention chronic indwelling catheter, chronic kidney disease, vitamin D deficiency presented to hospital after sustaining a fall at the retirement while getting out of the chair. Right shoulder pain was evaluated there was no fracture. Patient does seem to have muscle tear related pain Pain is well-managed In the hospital he was diagnosed with catheter associated UTI, Morelos catheter was exchanged, he was put on meropenem secondary to history of ESBL however urine culture is pansensitive, urine culture is showing Klebsiella and Morganella I will discharge him on Levaquin every other day regimen of Augmentin every day regimen twice a day for 10 days, at this point he does not need IV antibiotics He was treated with Kayexalate for his hyperkalemia before discharge Patient became hypoglycemic in the hospital his hemoglobin A1c is 5.7 he does not need high intensity his insulin I have discontinued his Lantus and short acting insulin 12 units Premeal as well I will only put him on low intensity sliding scale for now Patient is DNR/DNI Has been using wheelchair Physical Exam Narrative: Clinical signs of dehydration Awake and alert No significant signs of hypoglycemia Hemodynamic stable currently on room air Grade 1 hypertension Abdomen is soft No acute Rester distress No active wheezing or crackles Urinary Catheter Management: Morelos: Cath Placed During This Visit: yes Reason for Continuing Indwelling Catheter: Chronic Indwelling Urinary Catheter on Admission Urinary Catheter Date of Insertion: 09/12/23 Urinary Catheter Time of Insertion: 04:15 Discharge Data Studies Completed and Pending Completed Studies During Hospitalization Category Date Time Status XR chest 1V portable [id number] Stat Exams 09/11/23 20:38 Completed XR shoulder RT min 2V* [id number] Stat Exams 09/11/23 14:25 Completed Pending at discharge Category Date Time Status Blood Culture Stat Lab 09/11/23 15:32 Results Sputum Culture and Gram Stain Stat Lab 09/11/23 20:40 Uncollected Urine Culture Routine Lab 09/12/23 11:30 Received Radiology Impressions Shoulder X-Ray 09/11/23 14:25 IMPRESSION: No acute findings. Chest X-Ray 09/11/23 20:38 IMPRESSION: No acute findings. Laboratory Results WBC 9.24 10^3/uL (3.29-11.43) 09/13/23 04:15 RBC 2.94 10^6/uL (3.85-5.65) L 09/13/23 04:15 Hgb 9.30 g/dL (11.27-16.99) L 09/13/23 04:15 Hct 30.0 % (37-53) L 09/13/23 04:15 MCV 102.0 fl (82-101) H 09/13/23 04:15 MCH 31.6 pg (27-33) 09/13/23 04:15 MCHC 31.0 g/dL (30-55) 09/13/23 04:15 RDW 13.0 % (12.1-15.1) 09/13/23 04:15 Plt Count 274 10^3/cmm (157-399) 09/13/23 04:15 MPV 10.7 fL (7.4-10.4) H 09/13/23 04:15 Neut % (Auto) 55.1 % 09/13/23 04:15 Lymph % (Auto) 24.9 % 09/13/23 04:15 [place] % (Auto) 8.4 % 09/13/23 04:15 Eos % (Auto) 11.1 % 09/13/23 04:15 Baso % (Auto) 0.2 % 09/13/23 04:15 Neut # (Auto) 5.08 10^3/uL (1.8-7.7) 09/13/23 04:15 Lymph # (Auto) 2.3 10^3/uL (0.8-4.8) 09/13/23 04:15 [place] # (Auto) 0.8 10^3/uL (0.2-0.9) 09/13/23 04:15 Eos # (Auto) 1.0 10^3/uL (0.0-0.8) H 09/13/23 04:15 Baso # (Auto) 0.0 10^3/uL (0.0-0.1) 09/13/23 04:15 Nucleated RBC % (auto) 0 % 09/13/23 04:15 Nucleated RBCs # 0.0 /100WBC 09/13/23 04:15 Sodium 134 mmol/L (136-145) L 09/13/23 04:15 Potassium 5.5 mmol/L (3.5-5.1) H 09/13/23 04:15 Chloride 101 mmol/L (98-107) 09/13/23 04:15 Carbon Dioxide 26 mmol/L (22-29) 09/13/23 04:15 Anion Gap 12.5 (5-19) 09/13/23 04:15 BUN 29 mg/dL (8-23) H 09/13/23 04:15 Creatinine 1.4 mg/dL (0.7-1.2) H 09/13/23 04:15 GFR Calculation Not Reportable 09/13/23 04:15 Glucose 115 mg/dL (65-115) 09/13/23 04:15 POC Glucose 112 mg/dL (70-110) H 09/13/23 07:16 Estimat Average Glucose 120 09/11/23 14:14 Hemoglobin A1c 5.8 % (4.0-6.0) 09/11/23 14:14 Calculated Osmolality 285 mOsm/kg (285-295) 09/13/23 04:15 Lactic Acid 1.4 mmol/L (0.5-2.2) 09/11/23 15:32 Calcium 8.8 mg/dL (8.5-10.5) 09/13/23 04:15 Phosphorus 3.1 mg/dL (2.5-4.5) 09/12/23 04:53 Magnesium 2.4 mg/dL (1.7-2.3) H 09/12/23 04:53 Total Bilirubin 0.2 mg/dL (0.15-1.2) 09/11/23 14:16 AST 5 U/L (0-40) 09/11/23 14:16 ALT < 5 U/L (0-41) 09/11/23 14:16 Alkaline Phosphatase 138 U/L (40-130) H 09/11/23 14:16 Creatine Kinase 43 U/L (39-308) 09/12/23 04:53 C-Reactive Protein 6.1 mg/L (0.0-4.9) H 09/12/23 04:53 Total Protein 6.9 g/dL (6.6-8.7) 09/11/23 14:16 Albumin 3.2 g/dL (3.5-5.2) L 09/11/23 14:16 Globulin 3.7 g/dL (1.3-4.6) 09/11/23 14:16 TSH 4.41 uIU/mL (0.27-4.20) H 09/11/23 14:14 Urine Color Yellow (Yellow) 09/12/23 11:30 Urine Appearance Cloudy (CLEAR) A 09/12/23 11:30 Urine pH 6.5 (5-7) 09/12/23 11:30 Ur Specific [place] 1.010 (1.005-1.030) 09/12/23 11:30 Urine Protein 1+ (Negative) H 09/12/23 11:30 Urine Glucose (UA) Norm (Normal) 09/12/23 11:30 Urine Ketones Negative (Negative) 09/12/23 11:30 Urine Blood 3+ (Negative) H 09/12/23 11:30 Urine Nitrate Negative (Negative) 09/12/23 11:30 Urine Bilirubin Neg (Negative) 09/12/23 11:30 Prot Sulfosalicylic Acd Positive (Negative) 09/11/23 14:09 Urine Urobilinogen Neg mg/dL (Negative) 09/12/23 11:30 Ur Leukocyte Esterase 2+ (Negative) H 09/12/23 11:30 Urine RBC 0-4 /hpf (0-2) H 09/12/23 11:30 Urine WBC Too numerous to cnt /hpf (0-5) H 09/12/23 11:30 Ur Squamous Epith Cells 0-4 /hpf (0-5) H 09/12/23 11:30 Ur Transition Epith Cell 0-4 /hpf 09/12/23 11:30 Triple Phos Crystals 10-15 /hpf H 09/11/23 14:09 Amorphous Sediment Not Reportable 09/12/23 11:30 Urine Bacteria Trace /hpf (NONE) 09/12/23 11:30 Vitals Last Vital Signs Temp 97.5 F L 09/13/23 07:43 Pulse 66 09/13/23 07:43 Resp 18 09/13/23 07:43 BP 155/71 09/13/23 07:43 Pulse Ox 93 09/13/23 07:43 O2 Del Method Room Air 09/13/23 07:43 O2 Flow Rate 2 09/12/23 09:04 Discharge Plan Discharge Patient Disposition: Xfer SNF Condition: Stable Prescriptions: New amoxicillin-pot clavulanate 875-125 mg tablet 1 tab PO BID Qty: 20 0RF levofloxacin 750 mg tablet 750 mg PO Q48H 10 Days Qty: 5 0RF Continued acetaminophen 325 mg Tablet 650 mg PO Q6H PRN (Reason: PAIN OR ELEVATED TEMP) atorvastatin 20 mg tablet 20 mg PO BEDTIME ipratropium-albuterol 0.5 mg-3 mg(2.5 mg base)/3 mL Solution For Nebulization 3 ml INHALATION Q6H PRN (Reason: Shortness Of Breath) metoprolol succinate 50 mg tablet extended release 24 hr 50 mg PO QAM Zofran 4 mg Tablet 4 mg PO Q4H PRN (Reason: Nausea And Vomiting) Senokot-S 8.6-50 mg Tablet 2 tab-cap PO BID Vitamin B-12 1,000 mcg Tablet 1,000 mcg PO DAILY Aspir-81 81 mg Tablet,Delayed Release (Dr/Ec) 81 mg PO DAILY tramadol 50 mg tablet 50 mg PO Q8H PRN (Reason: Pain) Milk of Magnesia 400 mg/5 mL Suspension 30 ml PO DAILY PRN (Reason: Constipation) Azo 95 mg Tablet 95 mg PO BID bisacodyl 10 mg Suppository 10 mg FL DAILY PRN (Reason: Constipation) omeprazole 20 mg capsule,delayed release(DR/EC) 20 mg PO QAM furosemide 20 mg tablet 20 mg PO .QODAM Mylanta 200-200-20 mg/5 mL Suspension 30 ml PO Q8H PRN (Reason: UPSET STOMACH) Rx Instructions: administer between meals and at bedtime Glucagon Emergency Kit (human) 1 mg recon soln 1 mg IM ONCE PRN (Reason: Anaphylaxis) Miralax 17 gram/dose Powder 17 g PO BID trospium 20 mg tablet 20 mg PO DAILY cholecalciferol (vitamin D3) 1,250 mcg (50,000 unit) Tablet 1,250 mcg PO Q7D Rx Instructions: ON MONDAY memantine 14 mg capsule,sprinkle,ER 24hr 14 mg PO QAM naloxone 2 mg/2 mL Syringe Kit 2 mg IM Q2M PRN (Reason: OVERDOSE) Rx Instructions: NTExceed 10 mg total dose/episode Changed insulin lispro 100 unit/mL insulin pen See Rx Instructions .ROUTE .COMPLEX MDD 12U Qty: 15 0RF Rx Instructions: low intnesity sliding scale Discontinued clonidine HCl 0.1 mg Tablet 0.1 mg PO BID PRN (Reason: ELEVATED BP) Lantus Solostar U-100 Insulin 100 unit/mL (3 mL) insulin pen 38 unit SUBCUT BEDTIME Discharge Orders: Discharge Order (Routine); Ordered 09/13/23 Ordered By: Deanna Montgomery Activity Restrictions/Additional Instructions: Blood Sugar Result Humalog Insulin Coverage SubQ 60 - 124 No Coverage 125 - 150 2 units of Humalog Insulin subq 151 - 200 4 units of Humalog Insulin subq 201 - 250 6 units of Humalog Insulin subq 251 - 300 8 units of Humalog Insulin subq 301 - 350 10 units of Humalog Insulin subq 351 - 400 12 units of Humalog Insulin subq Call MD if blood sugar is less than 60 or greater than 400 Discharge Attestations Time Spent in Discharge Care*: greater than 30 min Quality Metrics Clinical Quality Measures [ No reported AMI, CVA or VTE this stay] Coding Level of Care Code Acute Code for [facility] Fwd Diagnoses MDD (major depressive disorder) F32.9 Hypertension I10 Type 2 diabetes mellitus E11.9 Nausea & vomiting R11.2 Chronic indwelling Morelos catheter Z97.8 UTI (urinary tract infection) N39.0 BPH (benign prostatic hyperplasia) N40.0 History of ESBL E. coli infection Z86.19 Right shoulder pain M25.511 Encephalopathy G93.40 Dementia F03.90 COPD (chronic obstructive pulmonary disease) J44.9 Acute kidney injury superimposed on chronic kidney disease N17.9; N18.9
[2023-09-13 11:03] LABS: Glucose Point of Care 154 mg/dL (70-110)
[2023-09-13] MEDS: insulin lispro 100 unit/1 mL SUBCUT (12:30)
[2023-09-13] MEDS: sodium bicarbonate 650 mg Tablet PO (12:31)
--- NOTE | 2023-09-13 14:52 | PC.NURSE ---
Report called to [place]: Report called to Perri at [facility]
== END 2023-09-13 15:43 | disposition skilled nursing facility (03) | DRG 698 ==
LOC: ER 17:53 → MEDSURG 17:57
PROVIDERS: Internal Medicine; Admitting Provider Internal Medicine; Emergency Provider Family Medicine; Visit Provider Internal Medicine
DX: T83.511A Infection and inflammatory reaction due to indwelling urethral catheter, initial encounter (principal); G93.41 Metabolic encephalopathy; J44.1 Chronic obstructive pulmonary disease with (acute) exacerbation; N17.9 Acute kidney failure, unspecified; N30.90 Cystitis, unspecified without hematuria; B96.1 Klebsiella pneumoniae [K. pneumoniae] as the cause of diseases classified elsewhere; B96.89 Other specified bacterial agents as the cause of diseases classified elsewhere; Y84.6 Urinary catheterization as the cause of abnormal reaction of the patient, or of later complication, without mention of misadventure at the time of the procedure; F03.90 Unspecified dementia, unspecified severity, without behavioral disturbance, psychotic disturbance, mood disturbance, and anxiety; Z87.440 Personal history of urinary (tract) infections; E78.5 Hyperlipidemia, unspecified; F32.9 Major depressive disorder, single episode, unspecified; D50.9 Iron deficiency anemia, unspecified; K21.9 Gastro-esophageal reflux disease without esophagitis; N40.1 Benign prostatic hyperplasia with lower urinary tract symptoms; R33.8 Other retention of urine; E11.22 Type 2 diabetes mellitus with diabetic chronic kidney disease; I12.9 Hypertensive chronic kidney disease with stage 1 through stage 4 chronic kidney disease, or unspecified chronic kidney disease; N18.9 Chronic kidney disease, unspecified; Z79.4 Long term (current) use of insulin; E55.9 Vitamin D deficiency, unspecified; R13.10 Dysphagia, unspecified; Z66 Do not resuscitate; E87.5 Hyperkalemia; M25.511 Pain in right shoulder; E11.649 Type 2 diabetes mellitus with hypoglycemia without coma; Z96.0 Presence of urogenital implants
CPT/HCPCS: 36415; 36416; 51702; 71045; 73030; 80048; 80053; 81001; 82550; 82962; 83036; 83605; 83735; 84100; 84443; 85025; 86140; 87040; 87077; 87086; 87186; 93005; 96365; 96367; 96372; 96375; 97161; 97530; 99285; J1200; J1644; J1815; J2185; J2543; J7030

== ENCOUNTER → 2023-11-06 09:04 | Outpatient (BNVA) | payer MEDICARE, OTHER, MEDICAID, SELFPAY | PROVIDERS: Referring Provider Internal Medicine; Visit Provider Specialist | DX: S59.901A Unspecified injury of right elbow, initial encounter; W19.XXXA Unspecified fall, initial encounter | CPT/HCPCS: 73080; 99204 ==

== ENCOUNTER 2024-05-19 15:03 | Emergency (ER) | payer MEDICARE, OTHER, SELFPAY ==
[2024-05-19 15:08] VITALS: BP 151/71; PULSE 78; RESP 16; TEMP 36.4; O2SAT 94; BMI 27.4
--- NOTE | 2024-05-19 15:18 | PC.PHAR ---
Pt is from [facility] [phone]
--- NOTE | 2024-05-19 15:19 | XRR_ITS ---
PROCEDURE INFORMATION: Exam: XR Chest Exam date and time: 05/19/2024 3:27 PM Age: 83 years old Clinical indication: Cough and fever; Patient HX: AMS; Cough; Fever; UTI; HTN TECHNIQUE: Imaging protocol: Radiologic exam of the chest. Views: 1 view. COMPARISON: 1. CR XR chest 1V portable [id number] 09/11/2023 8:[address] head wo con* [id number] 08/17/2017 11:49 PM FINDINGS: Lungs: No interval consolidation. Pleural spaces: Unremarkable. No pleural effusion. No pneumothorax. Heart/Mediastinum: No significant cardiomegaly. Diaphragm: There is more lobular contour of right hemidiaphragm which is likely projectional and comparison to 2018 examination shows similar contour. Bones/joints: Internal fixation of partially visualized left humerus. XR/XR chest 1V portable [id number] IMPRESSION: No consolidation.
--- NOTE | 2024-05-19 15:19 | CTR_ITS ---
PROCEDURE INFORMATION: Exam: CT Head Without Contrast Exam date and time: 05/19/2024 3:28 PM Age: 83 years old Clinical indication: Altered mental status/memory loss; Confusion or disorientation; Additional info: AMS TECHNIQUE: Imaging protocol: Computed tomography of the head without contrast. Radiation optimization: All CT scans at this facility use at least one of these dose optimization techniques: automated exposure control; mA and/or kV adjustment per patient size (includes targeted exams where dose is matched to clinical indication); or iterative reconstruction. COMPARISON: CT head wo con* [id number] 08/17/2017 11:49 PM RADIATION DOSE METRICS: Total DLP (mGy-cm): 1101.18 FINDINGS: Brain: There is progressive lucency in the cerebral white matter, consistent with microvascular disease. Parks white differentiation is intact. No acute hemorrhage. No evidence of mass effect or pathologic midline shift. Cerebral ventricles: The ventricles are dilated somewhat out of proportion to the sulci, possibly related to central atrophy, however this also raises the possibility of normal pressure hydrocephalus. Ventricular dilatation involves predominantly lateral and 3rd ventricles and appears mildly increased for length of time from comparison study in 2018. Clinical correlation is advised. The ventricles and sulci are diffusely enlarged, consistent with volume loss / atrophy. Paranasal sinuses: Small retention cyst or polyp in right sphenoid sinus. Small amount of mucosal thickening in right mid ethmoid air cell. No sinus fluid. Mastoid air cells: No significant mastoid effusion. Bones: Unremarkable. No acute fracture. Soft tissues: Unremarkable as visualized. Vasculature: There is vascular calcification. CT/CT head wo con* [id number] IMPRESSION: 1. Ventricles dilated greater than sulci, could indicate normal pressure hydrocephalus or greater central atrophy. Does patient show clinical triad of NPH of ataxia, incontinence, and dementia? 2. Atrophy and microvascular disease.
--- NOTE | 2024-05-19 15:32 | W.ED.PSYCHS ---
HPI - Psych General: Chief Complaint: Psychiatric Symptoms Stated Complaint: ams Time Seen by Provider: 05/19/24 15:06 History of Present Illness: Patient is an 83-year-old male with history of Alzheimer's. [place] [facility] [place] [facility] [place] patient naked lying in the floor of another patient's room. He was yelling at staff and telling the nursing staff just shoot me because I have lived a good life. They state that he never usually yells or acts this way. Patient has indwelling Morelos catheter that is not been changed in almost 3 months. There is a lot of sediment coming out into the bag. Patient has no fever or chills. He has not had any upper respiratory issues according to nursing staff. When I went in to see the patient he asked if I was coming in there to kill him. I told him I was not and he acted very disappointed. Patient vitals are normal. Related Data Home Medications Medication Instructions Recorded Confirmed acetaminophen 325 mg tablet 650 mg PO Q6H PRN PAIN OR ELEVATED 09/11/23 05/19/24 TEMP aluminum-mag hydroxide-simethicone 30 ml PO Q8H PRN UPSET STOMACH 09/11/23 05/19/24 200 mg-200 mg-20 mg/5 mL oral susp aspirin 81 mg tablet,delayed 81 mg PO DAILY 09/11/23 05/19/24 release atorvastatin 20 mg tablet 20 mg PO BEDTIME 09/11/23 05/19/24 bisacodyl 10 mg rectal suppository 10 mg KS DAILY PRN Constipation 09/11/23 05/19/24 furosemide 20 mg tablet 20 mg PO .QODAM 09/11/23 05/19/24 glucagon 1 mg solution for 1 mg IM ONCE PRN Anaphylaxis 09/11/23 05/19/24 injection (Glucagon Emergency Kit) ipratropium 0.5 mg-albuterol 3 mg 3 ml inhalation Q6H PRN Shortness 09/11/23 05/19/24 (2.5 mg base)/3 mL nebulization Of Breath soln magnesium hydroxide 400 mg/5 mL 30 ml PO DAILY PRN Constipation 09/11/23 05/19/24 oral suspension (Milk of Magnesia) memantine 14 mg capsule 14 mg PO QAM 09/11/23 05/19/24 sprinkle,extended release 24hr naloxone 2 mg/2 mL syringe kit 2 mg IM Q2M PRN OVERDOSE 09/11/23 05/19/24 omeprazole 20 mg capsule,delayed 20 mg PO QAM 09/11/23 05/19/24 release phenazopyridine 95 mg tablet 95 mg PO BID 09/11/23 05/19/24 polyethylene glycol 3350 17 17 g PO BID PRN Constipation 09/11/23 05/19/24 gram/dose oral powder (Miralax) sennosides 8.6 mg-docusate sodium 2 tab-cap PO BID 09/11/23 05/19/24 50 mg tablet (Senokot-S) fluoxetine 20 mg capsule 20 mg PO QAM 05/19/24 05/19/24 polyethylene glycol 3350 17 17 g PO QAM 05/19/24 05/19/24 gram/dose oral powder (Miralax) Previous Rx's Medication Instructions Recorded ciprofloxacin HCl 500 mg tablet 500 mg PO BID 10 days #20 tabs 05/19/24 (Cipro) Allergies Allergy/AdvReac Type Severity Reaction Status Date / Time citalopram [From Celexa] Allergy Unknown Verified 11/06/23 09:09 donepezil [From Aricept] Allergy Unknown Verified 11/06/23 09:09 [facility] ED PFSH: Medical History (Updated 05/19/24 @ 19:20 by Shravan Aguilar MD) Acute kidney injury superimposed on chronic kidney disease Nausea & vomiting History of ESBL E. coli infection UTI (urinary tract infection) Hypertension Dysphagia Vitamin D deficiency Urinary retention CKD (chronic kidney disease) Type 2 diabetes mellitus GERD (gastroesophageal reflux disease) COPD (chronic obstructive pulmonary disease) MDD (major depressive disorder) HLD (hyperlipidemia) Right shoulder pain Fall Chronic indwelling Morelos catheter BPH (benign prostatic hyperplasia) Dementia Encephalopathy Cystitis Social History Smoking and tobacco/nicotine status: former use of tobacco/nicotine Physical Exam Const: COMMON NORMALS: no acute distress and alert GENERAL APPEARANCE: cooperative HENMT: COMMON NORMALS: normocephalic and atraumatic HEAD & SCALP: normocephalic and atraumatic Eye: COMMON NORMALS: Equal, round and reactive pupils present and EOMs intact bilaterally PUPIL: Yes Equal, round and reactive pupils present Neck/C-Spine: COMMON NORMALS: full ROM and supple Chest: COMMONS NORMALS: normal inspection of the chest Resp: COMMON NORMALS: normal respiratory effort and clear to auscultation bilaterally AUSCULTATION: clear to auscultation bilaterally Cardio: COMMON NORMALS: regular rate and regular rhythm RATE: regular rate RHYTHM: regular rhythm GI: COMMON NORMALS: Normal to inspection, nondistended, normoactive bowel sounds present and non-tender : COMMON NORMALS: Yes no CVA tenderness BLADDER/KIDNEY EXAM: Yes no CVA tenderness Back/Pelvis: COMMON NORMALS: no CVA tenderness and thoracic and lumbar spine normal to inspection Extremity: COMMON NORMALS: normal to inspection, full ROM and no pedal edema Neuro: COMMON NORMALS: no focal motor deficits SENSORIUM/ORIENTATION: Yes alert Psych: COMMON NORMALS: cooperative Skin: COMMON NORMALS: no rashes or lesions noted GENERAL SKIN EXAM: no rashes or lesions noted Course Vital Signs: Vital signs: Vital Signs Temperature 97.5 F L 05/19/24 15:08 Pulse Rate 78 05/19/24 15:08 Respiratory Rate 16 05/19/24 15:08 Blood Pressure 151/71 05/19/24 15:08 Pulse Oximetry 94 05/19/24 15:08 Oxygen Delivery Me thod Room Air 05/19/24 15:08 MDM - Psych Medical Decision Making Patient urinary catheter had not been changed in approximately 2 and half months. Catheter was removed and nurse states that area was cleaned. She states Morelos catheter was kinked and infected. She placed new catheter. She noted on about 500 mL of fluid out almost immediately. Patient was given a liter of fluid for mild dehydration. Patient has obvious urinary tract infection. He is having some altered mental status according to the [place] [facility] but here he has been cooperative. He has been sleeping and he woke up and asked nurse when he is going to be able to go back home. Patient vitals are normal. No fever, no nausea or vomiting. No abdominal pain. Patient kidney function at baseline. Patient was given 1 g Rocephin. Feel appropriate the patient can be discharged back to [place] [facility] with antibiotic. Have given return precautions. Lab Data 05/19/24 15:40 05/19/24 15:40 Radiology Impressions Chest X-Ray 05/19/24 15:19 IMPRESSION: No consolidation. Head CT 05/19/24 15:19 IMPRESSION: 1. Ventricles dilated greater than sulci, could indicate normal pressure hydrocephalus or greater central atrophy. Does patient show clinical triad of NPH of ataxia, incontinence, and dementia? 2. Atrophy and microvascular disease. Laboratory Results WBC 18.45 10^3/uL (3.29-11.43) H 05/19/24 15:40 RBC 3.43 10^6/uL (3.85-5.65) L 05/19/24 15:40 Hgb 10.90 g/dL (11.27-16.99) L 05/19/24 15:40 Hct 34.5 % (37-53) L 05/19/24 15:40 MCV 100.6 fl (82-101) 05/19/24 15:40 MCH 31.8 pg (27-33) 05/19/24 15:40 MCHC 31.6 g/dL (30-55) 05/19/24 15:40 RDW 13.0 % (12.1-15.1) 05/19/24 15:40 Plt Count 391 10^3/cmm (157-399) 05/19/24 15:40 MPV 10.2 fL (7.4-10.4) 05/19/24 15:40 Neut % (Auto) 79.3 % 05/19/24 15:40 Lymph % (Auto) 12.0 % 05/19/24 15:40 [place] % (Auto) 6.9 % 05/19/24 15:40 Eos % (Auto) 1.0 % 05/19/24 15:40 Baso % (Auto) 0.2 % 05/19/24 15:40 Neut # (Auto) 14.63 10^3/uL (1.8-7.7) H 05/19/24 15:40 Lymph # (Auto) 2.2 10^3/uL (0.8-4.8) 05/19/24 15:40 [place] # (Auto) 1.3 10^3/uL (0.2-0.9) H 05/19/24 15:40 Eos # (Auto) 0.2 10^3/uL (0.0-0.8) 05/19/24 15:40 Baso # (Auto) 0.0 10^3/uL (0.0-0.1) 05/19/24 15:40 Nucleated RBC % (auto) 0 % 05/19/24 15:40 Nucleated RBCs # 0.0 /100WBC 05/19/24 15:40 Sodium 132 mmol/L (136-145) L 05/19/24 15:40 Potassium 5.2 mmol/L (3.5-5.1) H 05/19/24 15:40 Chloride 97 mmol/L (98-107) L 05/19/24 15:40 Carbon Dioxide 20 mmol/L (22-29) L 05/19/24 15:40 Anion Gap 20.2 (5-19) H 05/19/24 15:40 BUN 31 mg/dL (8-23) H 05/19/24 15:40 Creatinine 1.9 mg/dL (0.7-1.2) H 05/19/24 15:40 GFR Calculation Not Reportable 05/19/24 15:40 Glucose 239 mg/dL (65-115) H 05/19/24 15:40 Calculated Osmolality 288 mOsm/kg (285-295) 05/19/24 15:40 Calcium 9.4 mg/dL (8.5-10.5) 05/19/24 15:40 Magnesium 1.7 mg/dL (1.7-2.3) 05/19/24 15:40 Total Bilirubin 0.3 mg/dL (0.15-1.2) 05/19/24 15:40 AST 11 U/L (0-40) 05/19/24 15:40 ALT 9 U/L (0-41) 05/19/24 15:40 Alkaline Phosphatase 144 U/L (40-130) H 05/19/24 15:40 Total Protein 6.8 g/dL (6.6-8.7) 05/19/24 15:40 Albumin 3.7 g/dL (3.5-5.2) 05/19/24 15:40 Globulin 3.1 g/dL (1.3-4.6) 05/19/24 15:40 Lipase 20 U/L (13-60) 05/19/24 15:40 TSH 7.19 uIU/mL (0.27-4.20) H 05/19/24 15:40 Urine Color Dark yellow (Yellow) A 05/19/24 15:51 Urine Appearance Cloudy (CLEAR) A 05/19/24 15:51 Urine pH 7.0 (5-7) 05/19/24 15:51 Ur Specific [place] 1.009 (1.005-1.030) 05/19/24 15:51 Urine Protein 2+ (Negative) A 05/19/24 15:51 Urine Glucose (UA) Negative (Normal) 05/19/24 15:51 Urine Ketones Negative (Negative) 05/19/24 15:51 Urine Blood 2+ (Negative) A 05/19/24 15:51 Urine Nitrate Positive (Negative) A 05/19/24 15:51 Urine Bilirubin 1+ (Negative) H 05/19/24 15:51 Urine Urobilinogen 1.0 mg/dL (Negative) 05/19/24 15:51 Ur Leukocyte Esterase 3+ (Negative) A 05/19/24 15:51 Urine RBC 51-100 /hpf (0-2) H 05/19/24 15:51 Urine WBC >100 /hpf (0-5) H 05/19/24 15:51 Ur Squamous Epith Cells 0-5 /hpf (0-5) 05/19/24 15:51 Amorphous Sediment Not Reportable 05/19/24 15:51 Urine Bacteria Exceeds /hpf (NONE) 05/19/24 15:51 Hyaline Casts 1.21 /lpf 05/19/24 15:51 Salicylates < 0.3 mg/dL (3-10) L 05/19/24 15:40 Urine Opiates Screen Negative ng/mL (Negative) 05/19/24 15:51 Acetaminophen 13.5 ug/mL (10-30) 05/19/24 15:40 Ur Barbiturates Screen Negative ng/mL (Negative) 05/19/24 15:51 Ur Phencyclidine Scrn Negative ng/mL (Negative) 05/19/24 15:51 Ur Amphetamines Screen Negative ng/mL (Negative) 05/19/24 15:51 U Benzodiazepines Scrn Negative ng/mL (Negative) 05/19/24 15:51 Urine Cocaine Screen Negative ng/mL (Negative) 05/19/24 15:51 U Marijuana (THC) Screen Negative ng/mL (Negative) 05/19/24 15:51 Ethyl Alcohol < 10 mg/dL (0-10) 05/19/24 15:40 All radiology interpretation(s) finalized by discharge Discharge Plan Discharge Patient Disposition: Home Clinical Impression: Urinary tract infection Condition: Stable Prescriptions: New ciprofloxacin HCl [Cipro] 500 mg tablet 500 mg PO BID 10 Days Qty: 20 0RF No Action polyethylene glycol 3350 [Miralax] 17 gram/dose Powder 17 g PO QAM fluoxetine 20 mg capsule 20 mg PO QAM acetaminophen 325 mg Tablet 650 mg PO Q6H PRN (Reason: PAIN OR ELEVATED TEMP) atorvastatin 20 mg tablet 20 mg PO BEDTIME ipratropium-albuterol 0.5 mg-3 mg(2.5 mg base)/3 mL Solution For Nebulization 3 ml INHALATION Q6H PRN (Reason: Shortness Of Breath) sennosides-docusate sodium [Senokot-S] 8.6-50 mg Tablet 2 tab-cap PO BID aspirin 81 mg Tablet,Delayed Release (Dr/Ec) 81 mg PO DAILY magnesium hydroxide [Milk of Magnesia] 400 mg/5 mL Suspension 30 ml PO DAILY PRN (Reason: Constipation) phenazopyridine 95 mg Tablet 95 mg PO BID bisacodyl 10 mg Suppository 10 mg KS DAILY PRN (Reason: Constipation) omeprazole 20 mg capsule,delayed release(DR/EC) 20 mg PO QAM furosemide 20 mg tablet 20 mg PO .QODAM alum-mag hydroxide-simeth 200-200-20 mg/5 mL Suspension 30 ml PO Q8H PRN (Reason: UPSET STOMACH) Rx Instructions: administer between meals and at bedtime Glucagon Emergency Kit (human) 1 mg recon soln 1 mg IM ONCE PRN (Reason: Anaphylaxis) polyethylene glycol 3350 [Miralax] 17 gram/dose Powder 17 g PO BID PRN (Reason: Constipation) memantine 14 mg capsule,sprinkle,ER 24hr 14 mg PO QAM naloxone 2 mg/2 mL Syringe Kit 2 mg IM Q2M PRN (Reason: OVERDOSE) Rx Instructions: NTExceed 10 mg total dose/episode Discharge Orders: Discharge ED (Routine); Ordered 05/19/24 Ordered By: Shravan Aguilar Discharge Diet: Usual diet Discharge Activity: Increase activity as tolerated Patient Instructions: Urinary Tract Infection in Men (ED) Coding Level of Care Code ED [employer]ag[employer] for Deshawn Bermudez
--- NOTE | 2024-05-19 15:40 | PC.PHAR ---
Pts' med list no longer shows Vitamin d3 50,000 units q7d, Insulin lispro 100/ml per ss, Metoprolol Succinate 50mg qam, and Zofran 4mg q4h prn. Removed from list.
[2024-05-19 15:48] LABS: Basophils % 0.2 %; Eosinophils # 0.2 10^3/uL (0.0-0.8); Hematocrit 34.5 % (37-53); Lymphocytes # 2.2 10^3/uL (0.8-4.8); Mean Corpuscular HGB Conc 31.6 g/dL (30-55); Mean Corpuscular Hemoglobin 31.8 pg (27-33); Mean Corpuscular Volume 100.6 fl (82-101); Mean Platelet Volume 10.2 fL (7.4-10.4); Monocytes # 1.3 10^3/uL (0.2-0.9); Monocytes % 6.9 %; Neutrophils # 14.63 10^3/uL (1.8-7.7); Neutrophils % 79.3 %; Nucleated Red Blood Cells % 0 %; Platelet Count 391 10^3/cmm (157-399); Red Blood Count 3.43 10^6/uL (3.85-5.65); White Blood Count 18.45 10^3/uL (3.29-11.43)
[2024-05-19 16:01] LABS: Bilirubin Urine 1+ (Negative); Blood Urine 2+ (Negative); Glucose Urine UA Negative (Normal); Ketones Urine Negative (Negative); Leukocyte Esterase Urine 3+ (Negative); Nitrate Urine Positive (Negative); Protein Urine 2+ (Negative); Specific Gravity, Urine 1.009 (1.005-1.030); Urine Appearance Cloudy (CLEAR); Urine Color Dark Yellow (Yellow)
[2024-05-19 16:06] LABS: Add Urine Microscopic? YES; Bacteria Urine EXCEEDS /hpf; Hyaline Casts Urine 1.21 /lpf; RBC Urine 51-100 /hpf (0-2); Squamous Epithelial Cell Urine 0-5 /hpf (0-5); WBC Urine >100 /hpf (0-5)
[2024-05-19 16:08] LABS: Amphetamines Screen Urine Negative (Negative); Barbiturates Screen Urine Negative (Negative); Benzodiazepines Screen Urine Negative (Negative); Cocaine Screen Urine Negative (Negative); Opiate Screen Urine Negative (Negative); PCP Screen Urine Negative (Negative); THC Screen Urine Negative (Negative)
[2024-05-19 16:11] LABS: Add Urine Culture? Yes
[2024-05-19 16:16] LABS: Acetaminophen 13.5 ug/mL (10-30); Alanine Aminotransferase 9 U/L (0-41); Albumin Level 3.7 g/dL (3.5-5.2); Alkaline Phosphatase 144 U/L (40-130); Anion Gap 20.2 (5-19); Aspartate Amino Transferase 11 U/L (0-40); Blood Urea Nitrogen 31 mg/dL (8-23); Calcium 9.4 mg/dL (8.5-10.5); Carbon Dioxide 20 mmol/L (22-29); Chloride 97 mmol/L (98-107); Creatinine Clr Calc Pharmacy 29.3071; Globulin 3.1 g/dL (1.3-4.6); Glucose 239 mg/dL (65-115); Lipase 20 U/L (13-60); Magnesium 1.7 mg/dL (1.7-2.3); Osmolality Calculated 288 mOsm/kg (285-295); Potassium 5.2 mmol/L (3.5-5.1); Sodium 132 mmol/L (136-145); Thyroid Stimulating Hormone 7.19 uIU/mL (0.27-4.20); Total Bilirubin 0.3 mg/dL (0.15-1.2); Total Protein 6.8 g/dL (6.6-8.7)
[2024-05-19 16:17] LABS: Alcohol Level < 10 mg/dL (0-10); Salicylate < 0.3 mg/dL (3-10)
[2024-05-19] MEDS: sodium chloride 0.9% 1,000 ML 999 ML IV (16:35)
[2024-05-19] MEDS: cefTRIAXone 1,000 mg SDV 1000 MG IVP (16:35)
--- NOTE | 2024-05-19 19:29 | PC.NURSE ---
report called to [facility] to Natasha. [facility] is going to set up a ride for the pt.
[2024-05-19 19:42] VITALS: BP 109/56; PULSE 73; RESP 18; O2SAT 93
--- NOTE | 2024-05-19 19:45 | PC.NURSE ---
NURSE ASSUMED CARE OF PT AT 1900. PT HAS BEEN RESTING IN BED SINCE NURSE ARRIVED. NURSE ROUNDED ON PT IV AND HENRY CATHETER PATENT AND INTACT. PT WAS ALERT TO SELF ONLY AND DENIED PAIN, SI/HI.
[2024-05-19 21:38] VITALS: BP 104/53; PULSE 76; RESP 22; O2SAT 94
== END 2024-05-19 21:44 | disposition home or self-care (01) ==
PROVIDERS: Emergency Provider Emergency Medicine
DX: N39.0 Urinary tract infection, site not specified (principal); Z79.82 Long term (current) use of aspirin; E11.22 Type 2 diabetes mellitus with diabetic chronic kidney disease; I12.9 Hypertensive chronic kidney disease with stage 1 through stage 4 chronic kidney disease, or unspecified chronic kidney disease; N18.9 Chronic kidney disease, unspecified; J44.9 Chronic obstructive pulmonary disease, unspecified
CPT/HCPCS: 12345; 51702; 70450; 71045; 80053; 80306; 80307; 81001; 83690; 83735; 84443; 85025; 87077; 87086; 87186; 96374; 99285; J0696; J7030

== ENCOUNTER → 2024-07-02 09:34 | Outpatient (BNVA) | payer MEDICARE, SELFPAY | PROVIDERS: Visit Provider Orthopaedic Surgery | DX: M19.041 Primary osteoarthritis, right hand (principal) | CPT/HCPCS: 73130; 99204 ==

== ENCOUNTER → 2024-07-10 10:12 | Outpatient (BNVA) | payer MEDICARE, SELFPAY | PROVIDERS: PCP Internal Medicine; Visit Provider Podiatrist Foot & Ankle Surgery | DX: E11.621 Type 2 diabetes mellitus with foot ulcer (principal); L97.512 Non-pressure chronic ulcer of other part of right foot with fat layer exposed; G62.9 Polyneuropathy, unspecified | CPT/HCPCS: 99204 ==

== ENCOUNTER → 2024-07-17 07:06 | Outpatient (BNVA) | payer MEDICARE, SELFPAY | PROVIDERS: PCP Internal Medicine; Visit Provider Podiatrist Foot & Ankle Surgery | DX: E11.621 Type 2 diabetes mellitus with foot ulcer (principal); L97.512 Non-pressure chronic ulcer of other part of right foot with fat layer exposed; G62.9 Polyneuropathy, unspecified; E11.42 Type 2 diabetes mellitus with diabetic polyneuropathy | CPT/HCPCS: 99214 ==

== ENCOUNTER 2024-08-12 06:29 | Day surgery (SDC) | payer MEDICARE, OTHER, SELFPAY ==
[2024-08-12] VITALS (9 sets, daily range): BP systolic 127–161; BP diastolic 61–73; PULSE 65–75; RESP 16–18; TEMP 36.2–36.4; O2SAT 94–99; BMI 22.6
[2024-08-12 07:02] LABS: Glucose Point of Care 178 mg/dL (70-110)
[2024-08-12] MEDS: acetaminophen 1,000 MG/100 ML PIGGYBACK 400 MG IV (07:06)
[2024-08-12] MEDS: sodium chloride 0.9% 1,000 ML 30 ML IV (07:30)
--- NOTE | 2024-08-12 07:53 | W.PM.OPSUD ---
Surgery/Procedure H&P Update DATE OF PROCEDURE: August 12, 2024 DATE H&P PERFORMED: 07/17/24 H&P UPDATE INFORMATION: I have reviewed H&P completed within last 30 days, I have examined patient prior to procedure, No changes to prior documentation, H&P is in [facility] EMR on date indicated and Risks and benefits of the procedure reviewed PLANNED PROCEDURE: Operation Date: 08/12/24 08:05 Proposed Procedures p Right foot second digit amputation(Right) - Julian Garcia DPM
[2024-08-12] MEDS: ceFAZolin 2,000 mg SDV 2000 MG IVP (08:00)
[2024-08-12] MEDS: BUPivacaine 0.5% INJ 30 mL INJECTION (08:05)
--- NOTE | 2024-08-12 08:31 | PM.OP ---
Operative Report Date of procedure: August 12, 2024 Surgeon: Julian Garcia DPM Procedure: Date of procedure: 08/12/2024 Pre-op diagnosis: Right foot second proximal phalanx osteomyelitis Post-op diagnosis: Same Post-op findings: Degenerative changes at the proximal phalanx consistent with osteomyelitis Procedure done: Right foot taken digit amputation CPT 75661 Implants: None Specimens removed: Right foot second digit Surgeon: Dr. 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 The patient has had the aforementioned chief complaint for some time. Conservative treatment measures have been attempted and the patient has opted for surgical intervention at this time. A lengthy discussion regarding the procedure, including risks and complications has been had with the patient and is noted in the recent clinic note. Written and verbal consent have been obtained. All patient questions have been answered to the patient?s satisfaction. No written or verbal guarantees have been given or implied. The patient has been NPO since midnight. The history has been reviewed and the history and physical is current. The signed consent was confirmed and placed in the patient chart. Patient imaging has been reviewed and is consistent with the diagnosis. Under mild sedation, the patient was brought into the operating room and placed on the table in the supine position. IV antibiotics were given by the anesthesia team as preoperative surgical prophylaxis. Right foot second digit was anesthetized using 0.5% Marcaine plain. The operative extremity was then prepped and draped in the usual fashion. After preparation, the following procedure was then performed. Attention was directed to the right foot second digit where a full-thickness ulceration at the level of the proximal interphalangeal joint was noted. Bone is exposed. Surrounding erythema and active serous drainage was noted. An elliptical incision was made around the base of the second digit. This was done using a #15 blade. Dissection was carried down to the level of the second metatarsal phalangeal joint where the joint capsule was released. The right foot second digit was then passed from the operative field to be sent as surgical specimen. Remaining tissue appeared healthy and viable. No evidence of deep space abscess. The site was irrigated with copious amounts of sterile saline. Attention was directed to closure. Incision was closed using 3-0 nylon in simple interrupted fashion. Hemostasis was achieved via electrocautery. The incision site was dressed with Xeroform, 4 x 4 gauze, Kerlix, Claus. The patient tolerated the procedure and anesthesia well and without complication. The patient was transported from the operating room to the recovery room with vital signs stable and vascular status intact to all digits of the right foot. The patient was given both written and verbal instructions to remain weightbearing as tolerated in postop shoe to the operative extremity, to keep dressings/splint clean, dry and intact and to take pain medication as directed. The patient will follow-up in the outpatient setting at their scheduled appointment. The patient was discharged with my personal number and was instructed to call if any questions or issues should arise. They were discharged home once anesthesia criteria was met.
== END 2024-08-12 09:26 | disposition home or self-care (01) ==
PROVIDERS: PCP Internal Medicine; Visit Provider Podiatrist Foot & Ankle Surgery
PROC: (CPT 28820; principal; 2024-08-12 07:55)
DX: E11.69 Type 2 diabetes mellitus with other specified complication (principal); M86.671 Other chronic osteomyelitis, right ankle and foot; E11.42 Type 2 diabetes mellitus with diabetic polyneuropathy; E11.621 Type 2 diabetes mellitus with foot ulcer; L97.512 Non-pressure chronic ulcer of other part of right foot with fat layer exposed; E78.5 Hyperlipidemia, unspecified; K21.9 Gastro-esophageal reflux disease without esophagitis; N18.9 Chronic kidney disease, unspecified; E11.22 Type 2 diabetes mellitus with diabetic chronic kidney disease; J44.9 Chronic obstructive pulmonary disease, unspecified; Z79.82 Long term (current) use of aspirin; Z87.891 Personal history of nicotine dependence
CPT/HCPCS: 28820; 36416; 82962; 88305; 88311; J0131; J0690; J3490; J7030; L3260

== ENCOUNTER → 2024-08-19 13:14 | Outpatient (BNVA) | payer MEDICARE, OTHER, SELFPAY | PROVIDERS: PCP Internal Medicine; Visit Provider Podiatrist Foot & Ankle Surgery | DX: E11.621 Type 2 diabetes mellitus with foot ulcer (principal); L97.512 Non-pressure chronic ulcer of other part of right foot with fat layer exposed; E11.42 Type 2 diabetes mellitus with diabetic polyneuropathy; L03.90 Cellulitis, unspecified; Z89.421 Acquired absence of other right toe(s) | CPT/HCPCS: 99214 ==

== ENCOUNTER → 2024-08-26 14:00 | Outpatient (BNVA) | payer MEDICARE, OTHER, SELFPAY | PROVIDERS: PCP Internal Medicine; Visit Provider Podiatrist Foot & Ankle Surgery | DX: E11.621 Type 2 diabetes mellitus with foot ulcer (principal); L97.512 Non-pressure chronic ulcer of other part of right foot with fat layer exposed; G62.9 Polyneuropathy, unspecified; E11.42 Type 2 diabetes mellitus with diabetic polyneuropathy; L03.115 Cellulitis of right lower limb | CPT/HCPCS: 99213 ==

== ENCOUNTER → 2024-09-05 08:27 | Outpatient (BNVA) | payer MEDICARE, OTHER, SELFPAY | PROVIDERS: PCP Internal Medicine; Visit Provider Podiatrist Foot & Ankle Surgery | DX: L97.512 Non-pressure chronic ulcer of other part of right foot with fat layer exposed (principal); G62.9 Polyneuropathy, unspecified; E11.621 Type 2 diabetes mellitus with foot ulcer; Z89.421 Acquired absence of other right toe(s); L03.115 Cellulitis of right lower limb | CPT/HCPCS: 99213 ==

== ENCOUNTER → 2024-09-23 13:24 | Outpatient (BNVA) | payer MEDICARE, OTHER, SELFPAY | PROVIDERS: PCP Internal Medicine; Visit Provider Podiatrist Foot & Ankle Surgery | DX: E11.621 Type 2 diabetes mellitus with foot ulcer (principal); L97.512 Non-pressure chronic ulcer of other part of right foot with fat layer exposed; G62.9 Polyneuropathy, unspecified; L03.115 Cellulitis of right lower limb | CPT/HCPCS: 99213 ==

== ENCOUNTER → 2024-10-23 13:48 | Outpatient (BNVA) | payer MEDICARE, OTHER, SELFPAY | PROVIDERS: PCP Internal Medicine; Visit Provider Podiatrist Foot & Ankle Surgery | DX: E11.621 Type 2 diabetes mellitus with foot ulcer (principal); L97.512 Non-pressure chronic ulcer of other part of right foot with fat layer exposed; G62.9 Polyneuropathy, unspecified; L03.115 Cellulitis of right lower limb; Z89.421 Acquired absence of other right toe(s) | CPT/HCPCS: 99213 ==

== ENCOUNTER → 2024-12-26 07:04 | Outpatient (BNVA) | payer MEDICARE, OTHER, SELFPAY | PROVIDERS: PCP Internal Medicine; Visit Provider Podiatrist Foot & Ankle Surgery | DX: E11.42 Type 2 diabetes mellitus with diabetic polyneuropathy (principal); L60.3 Nail dystrophy; Z98.890 Other specified postprocedural states; E11.621 Type 2 diabetes mellitus with foot ulcer; L97.512 Non-pressure chronic ulcer of other part of right foot with fat layer exposed; G62.9 Polyneuropathy, unspecified | CPT/HCPCS: 11721 ==

== ENCOUNTER 2025-01-04 21:42 | Inpatient (IN) | payer MEDICARE, OTHER, MEDICAID, SELFPAY ==
[2025-01-04 21:43] VITALS: BP 87/65; PULSE 85; RESP 16; TEMP 36.8; O2SAT 95; BMI 29.0
--- OUTSIDE RECORDS SUMMARY | 2025-01-04 21:52 | XMS_ITS | Encounter Summary ---
Author Organization [facility] Address [address] [place] [address] Phone Care Team Providers Care Casting And Pasting Supervisor Name Role Phone Carlo Barros DO Primary Care Provider [phone] Encounter Details Date Type Department Care Team (Late st Contact Info) Description 07/23/2018 Orders Only [facility] [address] [place] [address] Other acute kidney failure (HCC) Social History Tobacco Use Types Packs/Day Years Used Date Smoking Tobacco: Never Assessed Sex and Gender Information Value Date Recorded Sex Assigned at Not on file Legal Sex Male 10:04 AM EDT Gender Identity Not on file Sexual Orientation Not on file documented as of this encounter Plan of Treatment Not on file documented as of this encounter Visit Diagnoses Diagnosis Other acute kidney failure (HCC) documented in this encounter Care Teams Casting And Pasting Supervisor Relationship Specialty Start Date End Date Carlo Barros DO [address] [place] [address] PCP - General Family Medicine 08/03/18 documented as of this encounter
--- OUTSIDE RECORDS SUMMARY | 2025-01-04 21:52 | XMS_ITS | Clinical Summary ---
Author Organization [facility] Address [address] [place] [address] Care Team Providers Care Log Grader Name Role Phone Stnaford Johnson MD Primary Care Provider [phone] Allergies Active Allergy Reactions Criticality Noted Date Comments Donepezil Unknown 03/29/2022 Citalopram Unknown 03/29/2022 Medications aspirin 81 MG EC tablet Take 81 mg by mouth. Active atorvastatin (LIPITOR) 20 MG tablet 2 Active dextromethorphan -guaifenesin (ROBITUSSIN-DM) 10-100 mg/5 mL ORAL liquid Take 5 mL by mouth every 4 (four) hours as needed. Active HumaLOG KwikPen Insulin 100 unit/mL insulin pen subcutaneous pen Inject 12 Units under the skin in the morning and 12 Units at noon and 12 Units in the evening. 2 Active Lantus Solostar U-100 Insulin 100 unit/mL (3 mL) subcutaneous pen 38 Units nightly. 2 Active furosemide (LASIX) 20 MG tablet 1 tablet in the morning. 2 Active memantine (NAMENDA XR) 28 mg 24 hr capsule 1 tablet every morning. 2 Active magnesium hydroxide 400 mg/5 mL suspension Take 30 mL by mouth daily as needed. Active polyethylene glycol (GLYCOLAX) 17 gram/dose ORAL powder Take 17 g by mouth. Active omeprazole (PriLOSEC) [address] capsule 1 capsule in the morning. 2 Active phenazopyridine (PYRIDIUM) 95 MG tablet Take 97.5 mg by mouth in the morning and 97.5 mg in the evening. Active sertraline (ZOLOFT) 25 MG tablet 2 Active metoprolol succinate (TOPROL-XL) 50 MG 24 hr tablet 1 tablet in the morning. 2 Active sennosides-docus ate sodium (SENOKOT-S) 8.6-50 mg tablet Take 1 tablet by mouth every morning. Active acetaminophen (TYLENOL) 325 mg tablet Take 650 mg by mouth every 4 (four) hours as needed. Active cetirizine (ZyrTEC) 10 MG tablet Take 10 mg by mouth in the morning. Active ipratropium-albu teroL (DUO-NEB) 0.5-2.5 mg/mL nebulizer solution Take 3 mL by nebulization every 6 (six) hours as needed for shortness of breath. Active mag hydrox/aluminum hyd/simeth (MYLANTA ORAL) Take 30 mL by mouth every 8 (eight) hours as needed for indigestion. Active nystatin (MYCOSTATIN) 100,000 unit/gram powder Apply topically every 8 (eight) hours as needed for irritation. To groin Active HYDROcodone-acet aminophen (NORCO) 5-325 mg per tabletIndication s:Pain Take 1 tablet by mouth in the morning and 1 tablet in the evening. Max Daily Amount: 2 tablets. 60 tablet 4 Active bisacodyL (DULCOLAX) 10 mg suppository 10 mg. 4 Active cefdinir (OMNICEF) 300 MG capsule Take 300 mg by mouth in the morning and 300 mg in the evening. Active cloNIDine (CATAPRES) 0.1 MG tablet Take 0.1 mg by mouth in the morning and 0.1 mg in the evening. Active naloxone (NARCAN) 1 mg/mL injection Inject into the shoulder, thigh, or buttocks. Active trospium (SANCTURA) 20 mg tablet 20 mg. 4 Active Active Problems Problem Noted Date Diagnosed Date S/P amputation of lesser toe, right 09/09/2024 CVA (cerebral vascular accident) 01/31/2024 Hyperparathyroidism 11/02/2023 B12 deficiency 12/02/2022 Pain 08/10/2022 Slow transit constipation 07/08/2022 Presence of indwelling Morelos catheter 06/20/2022 Type 2 diabetes mellitus wit h stage 3a chronic kidney disease, without long-term current use of insulin 04/05/2022 Assessment & Plan (04/22/2022 11:09 PM ENVIRONMENTAL HEALTH PHYSICIAN): Continue current basal insulin and SS as indicated Review labs A1C as scheduled. Gastroesophageal reflux disease 04/05/2022 Assessment & Plan (04/22/2022 11:08 PM ENVIRONMENTAL HEALTH PHYSICIAN): GERD precautions Acid reduction with omeprazole Monitor clinically Primary hypertension 04/05/2022 Assessment & Plan (04/22/2022 11:08 PM ENVIRONMENTAL HEALTH PHYSICIAN): Continue metoprolol and monitor clinically. History of traumatic brain injury 04/05/2022 COPD (chronic obstructive pulmonary disease) Assessment & Plan (04/22/2022 11:07 PM ENVIRONMENTAL HEALTH PHYSICIAN): Continue current regimen Monitor clinically Mixed hyperlipidemia 06/12/2015 Assessment & Plan (04/22/2022 11:11 PM ENVIRONMENTAL HEALTH PHYSICIAN): Continue statin therapy with atorvastatin Monitor labs. 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 Resolved Problems Problem Noted Date Diagnosed Date Resolved Date Upper respiratory tract infection 04/05/2022 04/05/2022 Fall 04/05/2022 03/11/2024 History of MRSA infection 04/05/2022 Encounters Date Type Department Care Team Description 12/11/2024 10:30 AM CDT Telemedicine [facility] Becky Burger - Primary Care [address] [place] [address] Alejandro Castro FNP jail resident (Primary Dx); Finger swelling from Last 3 Months Immunizations Immunization Administration Dates Next Due Td (adult), unspecified 03/06/2010 Tdap (BOOSTRIX, ADACEL) 08/25/2016,06/16/2016 influenza, high-dose, yamilet valent (FLUZONE HIGH-DOSE) 03/13/2023,02/14/2022,02/09/2018 influenza, high-dose, trival ent (FLUZONE HIGH-DOSE) 02/04/2021,02/07/2020,02/08/2019 influenza, injectable, triva lent (AFLURIA/FLUZONE MDV) 04/05/2006 influenza, injectable, triva lent, preservative free (AFLURIA/FLUARIX/FLULAVAL/FLUZONE) 02/29/2016,02/04/2015,01/22/2014 influenza, unspecified 01/09/2013,2011,01/10/2011,01/31,01/20/2009,02/22/2008,01/23/2008 ,03/26/2007 pneumococcal conjugate PCV 1 3 (PREVNAR 13) 08/03/2017,06/24/2014 pneumococcal conjugate PCV 2 0 (PREVNAR 20) 01/13/2023 pneumococcal polysaccharide PPV 23 (PNEUMOVAX 23) 02/21/2017 pneumococcal, unspecified 2007 zoster live (ZOSTAVAX) 12/22/2011 Social History Tobacco Use Types Packs/Day Years Used Date Smoking Tobacco: Unknown Tobacco Cessation:Counseling Given: Not Answered Alcohol Use Standard Drinks/Week Comments Defer 0 (1 standard drink = 0.6 oz pur e alcohol) PHQ-2 Answer Date Recorded PHQ-2 Score 0 05/07/2024 Sex and Gender Information Value Date Recorded Sex Assigned at Not on file Legal Sex Male 6:00 PM ENVIRONMENTAL HEALTH PHYSICIAN Gender Identity Not on file Sexual Orientation Not on file Last Filed Vital Signs Vital Sign Reading Time Taken Comments Blood Pressure 110/62 12/31/2024 6:53 AM CDT Pulse 87 12/31/2024 6:53 AM CDT Temperature 36.4 C (97.5 F) 12/31/2024 6:53 AM CDT Respiratory Rate 16 12/31/2024 6:53 AM CDT Oxygen Saturation 90% 12/31/2024 6:53 AM CDT Inhaled Oxygen Concentration - - Weight 60.4 kg (133 lb 3.2 oz) 12/31/2024 6:53 A M CDT Height 162.6 cm (5' 4 ) 12/31/2024 6:53 AM CDT Body Mass Index 22.86 12/31/2024 6:53 AM CDT Plan of Treatment Health Maintenance Due Date Last Done Comments Foot Exam 1941 Ophthalmology Exam 12/25/1951 Urine Microalbumin 12/25/1951 Colonoscopy 1986 RSV 60+ (1 - 1-dose 75+ series) 2016 Hemoglobin A1C 12/15/2018 09/13/2018 Influenza Vaccination (#1) 11/22/202402/13, 03/13/2023, 03/13/2023, Additional history exists COVID-19 Vaccine (2023- season) 2025 07/18/2024, 05/19/2023, 12/01/2022, Additional history exists Shingrix (ZOSTER RECOMBINANT) (2 of 2) 02/07/2025 12/13/2024, 12/22/2011 Medicare Annual Wellness 03/29/2025 03/29/2024, 12/09/2023 Td, Tdap Vaccines Adult 08/25/2026 08/26/19 17, 06/16/2016, 03/06/2010 Pneumococcal Vaccine: 50+ Years Completed 01/13/2023, 08/03/2017, 02/21/2017, Additional history exists HIB Vaccines Aged Out No longer eligi ble based on patient's age to complete this topic HPV Vaccines Aged Out No longer eligi ble based on patient's age to complete this topic Hepatitis A Vaccines Aged Out No long er eligible based on patient's age to complete this topic Hepatitis B Vaccines Aged Out No long er eligible based on patient's age to complete this topic IPV Vaccines Aged Out No longer eligi ble based on patient's age to complete this topic Meningococcal Vaccines Aged Out No lo nger eligible based on patient's age to complete this topic RSV Mab Nirsevimab (Beyfortus) <20 months Aged Out No longer eligibl e based on patient's age to complete this topic Rotavirus Vaccines Aged Out No longer eligible based on patient's age to complete this topic [facility] Care Teams Log Grader Relationship Specialty Start Date End Date Stanford Johnson MD [address] [address] PCP - General Internal Medicine 03/23/22
--- OUTSIDE RECORDS SUMMARY | 2025-01-04 21:53 | XMS_ITS | Clinical Summary ---
Author Organization [facility] Address [address] [place] [id number] Care Team Providers Care Inspector And Tester Name Role Phone Carlo Barros Primary Care Provider [phone] Allergies Active Allergy Reactions Criticality Noted Date Comments Donepezil 09/12/2018 Citalopram 09/12/2018 Medications aspirin (ST FCO) 81 MG EC tablet Take 81 mg by mouth 1 (one) time each day Active phenazopyridine (PYRIDIUM) 95 MG tablet Take 97.5 mg by mouth 2 (two) times a day Active docusate sodium (COLACE) 100 MG capsule Take 200 mg by mouth at night if needed for constipation Active Bisacodyl (DULCOLAX RE) Insert 10 mg into the rectum 1 (one) time each day if needed Active tamsulosin (FLOMAX) 0.4 MG 24 hr capsule Take 0.4 mg by mouth 1 (one) time each day Active insulin regular (HumuLIN,NovoLIN) 100 UNIT/ML injection Inject under the skin 3 (three) times a day before meals Per Sliding Scale Active SITagliptin (JANUVIA) 100 MG tablet Take 100 mg by mouth 1 (one) time each day Active insulin glargine (LANTUS) 100 UNIT/ML injection Inject 17 Units under the skin every night Active furosemide (LASIX) 20 MG tablet Take 20 mg by mouth every other day Active methenamine (HIPREX) 1 g tablet Take 1 g by mouth 2 (two) times a day with meals Active metoprolol succinate XL (TOPROL-XL) 50 MG 24 hr tablet Take 50 mg by mouth 1 (one) time each day Do not crush or chew. Active magnesium hydroxide (MILK OF MAGNESIA) 400 MG/5ML suspension Take 30 mL by mouth 1 (one) time each day if needed for constipation Active polyethylene glycol (GLYCOLAX) packet Take 17 g by mouth 1 (one) time each day Active iron polysaccharides (NU-IRON,IFEREX) 150 MG capsule Take 150 mg by mouth 2 (two) times a day Active omeprazole (PriLOSEC) [address] capsule Take 20 mg by mouth 1 (one) time each day Do not crush or chew. Active promethazine (PHENERGAN) 12.5 MG suppository Insert 12.5 mg into the rectum every 4 (four) hours if needed for nausea or vomiting Active guaiFENesin-dextrom ethorphan (ROBITUSSIN DM) 100-10 MG/5ML syrup Take 5 mL by mouth every 4 (four) hours if needed for cough Active simvastatin (ZOCOR) 10 MG tablet Take 10 mg by mouth every night Active Ascorbic Acid (VITAMIN C) 100 MG tablet Take 100 mg by mouth 2 (two) times a day Active cetirizine (ZyrTEC) 10 MG tablet Take 10 mg by mouth 1 (one) time each day Active Active Problems No known active problems Social History Tobacco Use Types Packs/Day Years Used Date Smoking Tobacco: Former Smokeless Tobacco: Never Alcohol Use Standard Drinks/Week Comments Never 0 (1 standard drink = 0.6 oz pur e alcohol) AUDIT-C Answer Date Recorded Frequency of Alcohol Consumption Never 09/12/2018 Average Number of Drinks Not on file 019 Frequency of Binge Drinking Not on file 08/23 Sex and Gender Information Value Date Recorded Sex Assigned at Not on file Legal Sex Male 10:04 AM EDT Gender Identity Not on file Sexual Orientation Not on file Last Filed Vital Signs Vital Sign Reading Time Taken Comments Blood Pressure 114/70 09/12/2018 2:12 PM CDT Pulse 70 09/12/2018 2:12 PM CDT Temperature - - Respiratory Rate - - Oxygen Saturation - - Inhaled Oxygen Concentration - - Weight 81.6 kg (180 lb) 09/12/2018 2:12 PM CDT Height 167.6 cm (5' 6 ) 09/12/2018 2:12 PM CDT Body Mass Index 29.05 09/12/2018 2:12 PM CDT Plan of Treatment Health Maintenance Due Date Last Done Comments Pneumococcal Vaccine: 50+ Ye ars (1 of 1 - PCV) 12/25/1991 Influenza Vaccine (#1) 2024 Hepatitis B Vaccine Aged Out No longe r eligible based on patient's age to complete this topic Insurance Medicare Medicaid [place] ([id number]) [facility] Care Teams Inspector And Tester Relationship Specialty Start Date End Date Carlo Barros DO [address] [place] [address] PCP - General Family Medicine 08/03/18
--- OUTSIDE RECORDS SUMMARY | 2025-01-04 21:53 | XMS_ITS | Clinical Summary ---
Author Organization [facility] Address [address] [place] [address] Care Team Providers Care Food And Beverage Assistant Name Role Phone Carlo Barros DO Primary Care Provider Unavaila ble Allergies Active Allergy Reactions Criticality Noted Date Comments Citalopram Unknown 08/30/2018 Donepezil Unknown 09/13/2018 Medications aspirin (CARINE CHEWABLE) 81 mg Tablet, Chewable Take 81 mg by mouth daily. Active cetirizine (ZyrTEC) 10 mg tablet Take 10 mg by mouth daily. Active sitaGLIPtin (JANUVIA) 100 mg Tablet Take 100 mg by mouth daily with breakfast. Active omeprazole (PriLOSEC) 20 mg Capsule, Delayed Release(E.C.) Take 20 mg by mouth daily. Active tamsulosin (FLOMAX) 0.4 mg capsule Take 0.4 mg by mouth daily. Active glipiZIDE (GLUCOTROL) 10 mg tablet Take 10 mg by mouth daily with breakfast. Active HYDROcodone-dorene taminophen (NORCO) 5-325 mg tablet Take 1 Tablet by mouth every 12 hours . Active polyethylene glycol 3350 (MIRALAX) 17 gram/dose Powder Take 17 Grams by mouth daily Dissolve in 8 ounces of fluid and drink entire liquid . Active SENNOSIDES ORAL Take 1 Tablet by mouth. Active oxybutynin chloride (DITROPAN) 5 mg tablet Take 5 mg by mouth 3 times daily. Active insulin regular (HUMULIN R,NOVOLIN R) 100 unit/mL vialIndications :sliding scale Inject by subcutaneous injection . Active insulin glargine (LANTUS) 100 unit/mL injection Inject 17 Units by subcutaneous injection daily at bedtime . Active furosemide (LASIX) 20 mg tablet Take 20 mg by mouth every other day . Active methenamine hippurate (HIPREX) 1 gram Tablet Take 1 Gram by mouth 2 times daily. Active magnesium hydroxide (MILK OF MAGNESIA) 400 mg/5 mL suspension Take 30 mL by mouth 1 time daily as needed for Constipation. Active polysaccharide iron complex (FERREX 150,IFEREX 150) 150 mg iron capsule Take 150 mg by mouth 2 times daily. Active phenazopyridine 97.5 mg Tablet Take 97.5 mg by mouth 2 times daily. Active promethazine (PHENERGAN) 12.5 mg Suppository Insert 12.5 mg by rectum every 4 hours as needed for Nausea/Emesis. Active dextromethorpha n-guaiFENesin (ROBITUSSIN DM) 10-100 mg/5 mL solution Take 5 mL by mouth every 4 hours as needed for Cough. Active docusate sodium (COLACE) 100 mg capsule Take 200 mg by mouth daily at bedtime. Active ascorbic acid (VITAMIN C) 100 mg Tablet, Chewable Take by mouth 2 times daily. Active acetaminophen (TYLENOL) 325 mg tablet Take 650 mg by mouth every 4 hours as needed. Active bisacodyl (DULCOLAX) 10 mg Suppository Insert 10 mg by rectum 1 time daily as needed for Constipation. Active metoprolol succinate (TOPROL XL) 50 mg Extended Release 24 hour tablet Take 50 mg by mouth daily. Active loperamide (IMODIUM) 2 mg capsule Take 2 mg by mouth every 3 hours as needed for Diarrhea/Loose Stools. 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 07/03/2018 Displaced intertrochanteric fracture of right femur, sequela 04/08/2017 Iron deficiency anemia 06/12/2015 Mixed hyperlipidemia 06/12/2015 COPD (chronic obstructive pulmonary disease) Urinary retention 06/12/2015 Personal history of fall 06/12/2015 Type 2 diabetes mellitus without complication Essential hypertension, benign 06/12/2015 Chronic kidney disease, unspecified 06/12/2015 Weakness generalized 06/12/2015 Resolved Problems Problem Noted Date Diagnosed Date Resolved Date Leukocytosis 08/30/2018 09/02/2018 Traumatic hemorrhage of cere man without loss of consciousness 06/12/2015 02/11/2019 Social History Tobacco Use Types Packs/Day Years Used Date Smoking Tobacco: Never Smokeless Tobacco: Never Alcohol Use Standard Drinks/Week Comments No 0 (1 standard drink = 0.6 oz pur e alcohol) Sex and Gender Information Value Date Recorded Sex Assigned at Not on file Legal Sex Male 4:33 PM PROCESSES CHEMICAL DESIGN ENGINEER Gender Identity Not on file Sexual Orientation Not on file Last Filed Vital Signs Vital Sign Reading Time Taken Comments Blood Pressure 126/64 05/21/2020 1:33 PM PROCESSES CHEMICAL DESIGN ENGINEER Pulse 73 05/21/2020 1:33 PM PROCESSES CHEMICAL DESIGN ENGINEER Temperature 36.1 C (97 F) 05/21/2020 1:33 PM PROCESSES CHEMICAL DESIGN ENGINEER Respiratory Rate 18 05/21/2020 1:33 PM PROCESSES CHEMICAL DESIGN ENGINEER Oxygen Saturation 90% 05/21/2020 1:33 PM PROCESSES CHEMICAL DESIGN ENGINEER Inhaled Oxygen Concentration - - Weight 78 kg (172 lb) 05/21/2020 1:33 PM PROCESSES CHEMICAL DESIGN ENGINEER Height 167.6 cm (5' 6 ) 05/21/2020 1:33 PM PROCESSES CHEMICAL DESIGN ENGINEER Body Mass Index 27.76 05/21/2020 1:33 PM PROCESSES CHEMICAL DESIGN ENGINEER Plan of Treatment Health Maintenance Due Date Last Done Comments DIABETES ANNUAL FOOT EXAM 12/25/1959 DIABETES MICROALBUMIN ANNUAL SCREEN 12/25/1959 LDL CHOLESTEROL ANNUAL 12/25/1959 ZOSTER VACCINE (1 of 2) 12/25/1991 DIABETES ANNUAL RETINAL EXAM 03/12/2009, 03/12/2008, 03/07/2006 PNEUMOCOCCAL VACCINE 50+ YEA RS (2 of 2 - PPSV23, PCV20, or PCV21) 08/19/2014 06/24/2014 RSV VACCINE (60+ or ) (1 - 1-dose 75+ series) 2016 DIABETES HBA1C Q 6 MONTHS 03/16/20192018, 06/19/2018, 03/19/2018, Additional history exists INFLUENZA VACCINE (#1) 2024 6, 02/04/2015, 01/22/2014 DTAP/TDAP/TD VACCINES (2 - T d or Tdap) 06/16/2026 06/16/2016 Procedures Procedure Name Priority Date/Time Associated Diagnosis Comments HEMOGLOBIN A1C Stat 09/13/2018 1:13 PM CDT from Last 3 Months or Most Recently Relevant to Health Maintenance Results * (ABNORMAL) HEMOGLOBIN A1C (09/13/2018 1:13 PM CDT) HEMOGLOBIN A1C 7.0(H) See comment % 09/13/2018 1:[address] [facility] EST. AVG GLUCOSE, A1C 154 mg/dL 09/13/2018 1:[address] [facility] Blood Venipuncture / Unknown 09/13/2018 1:13 PM CDT 09/13/2018 1:[address] [facility] - 09/13/2018 1:45 PM CDT HGB A1C INTERPRETATION NORMAL: <5.7% PRE-DIABETES: 5.7 - 6.4% DIABETES: 6.5% OR GREATER Mart Tobin DO CHEMISTRY ORDERABLES Lilibeth moreno Result [facility] CLIA # [id number] [address] [place] [address] from Last 3 Months or Most Recently Relevant to Health Maintenance Insurance MEDICARE PART A AND B [employer] MEDICAID [place] * Guarantor: [address], Corporate Account Type Relation to Patient Date of Phone Billing Address Corporate Other [address] [place] [address] Advance Directives For more information, please contact: [phone] Documents on File Type Date Recorded Patient Sign Writer Letterer Or Painter Expl anation Advance Directive POA 08/14/2017 7:09 AM a llow natural request Advance Directive Living Will 08/14/2017 7:09 AM Advance Directive Living Will * NO CPR (In Event of Cardiopulmonary Arrest) (Latest Code Status on File) Date Activated Date Inactivated Comments 08/30/2018 6:53 PM 09/03/2018 7:12 PM Question Answer Comments Mechanical Ventilation (for respiratory distress) - Invasive (i.e. intubation): No Mechanical Ventilation (for respiratory distress) - Non-Invasive (i.e. BiPAP, CPAP): Yes Cardioversion - (Allow prior to Cardiopulmonary Arrest): Yes Vasopressors - (Allow prior to Cardiopulmonary A rrest): Yes Inotropic Agents - (Allow prior to Cardiopulmona ry Arrest): Yes External Pacing - (Allow prior to Cardiopulmonar y Arrest): Yes Invasive Monitoring - (Allow prior to Cardiopulm onary Arrest): Yes Care Teams Food And Beverage Assistant Relationship Specialty Start Date End Date Carlo Barros DO PCP - General Family Practice 04/11/18
--- OUTSIDE RECORDS SUMMARY | 2025-01-04 21:53 | XMS_ITS | Encounter Summary ---
Author Organization [facility] Address [address] [place] [address] Care Team Providers Care Oracle Financial Application Developer Name Role Phone Carlo Barros DO Primary Care Provider Unavaila ble Encounter Details Date Type Department Care Team (Late st Contact Info) Description 04/05/2018 Ancillary Orders [facility] Centralized Scheduling [address] [place] [address] Carlo Barros DO NO ADDRESS ON FILE Social History Tobacco Use Types Packs/Day Years Used Date Smoking Tobacco: Never Assessed Sex and Gender Information Value Date Recorded Sex Assigned at Not on file Legal Sex Male 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
--- OUTSIDE RECORDS SUMMARY | 2025-01-04 21:53 | XMS_ITS | Encounter Summary ---
Author Organization [facility] Address [address] [place] [address] Care Team Providers Care Chin Strap Cutter Name Role Phone Carlo Barros DO Primary Care Provider Unavaila ble Reason for Referral * Radiology Services (Routine) - Closed Specialty Diagnoses / Procedures Referred By Contac t Referred To Contact Radiology Diagnoses Renal failure, unspecified chronicity Urinary retention Procedures US RENAL Carlo Barros DO [facility] [address] [facility] [address] [place] [address] Phone: tel: fax: Referral ID Status Reason Start Date Expiration Date V isits Requested Visits Authorized [id number] Closed [facility] CTS to Schedule (SGF) 07/12/2018 08/12/2019 1 1 Encounter Details Date Type Department Care Team (Latest Contact Info) Description 07/12/2018 Ancillary Orders [facility] Centralized Scheduling [address] [facility] [address] [place] [address] Carlo Barros DO NO ADDRESS ON FILE Renal failure, unspecified chronicity; Urinary retention Social History Tobacco Use Types Packs/Day Years Used Date Smoking Tobacco: Never Smokeless Tobacco: Never Alcohol Use Standard Drinks/Week Comments No 0 (1 standard drink = 0.6 oz pur e alcohol) Sex and Gender Information Value Date Recorded Sex Assigned at Not on file Legal Sex Male 4:33 PM TRANSPLANT COORDINATOR Gender Identity Not on file Sexual Orientation Not on file documented as of this encounter Plan of Treatment Not on file documented as of this encounter Results * US RENAL (07/16/2018 8:30 AM CDT) Anatomical Region Laterality Modality Abdomen Ultrasound 07/16/2018 8:30 AM CDT Impressions 07/16/2018 1:40 PM CDT IMPRESSION: Please see below. Exam: US RENAL Date/Time of Exam: 07/16/2018 8:30 AM Reason For Exam: See Diagnosis. Diagnosis: Renal failure, unspecified chronicity; Urinary retention. Findings: The right kidney measures 10.8 cm in length. The cortex is of normal echogenicity. There is no hydronephrosis, stone or mass. The left kidney measures 9.8 mm in length. The cortex is of normal echogenicity. There is no hydronephrosis, stone or mass. IMPRESSION: Negative examination. Narrative Procedure Note Leonor Adames MD - 07/16/2018 IMPRESSION: Please see below. Exam: US RENAL Date/Time of Exam: 07/16/2018 8:30 AM Reason For Exam: See Diagnosis. Diagnosis: Renal failure, unspecified chronicity; Urinary retention. Findings: The right kidney measures 10.8 cm in length. The cortex is of normal echogenicity. There is no hydronephrosis, stone or mass. The left kidney measures 9.8 mm in length. The cortex is of normal echogenicity. There is no hydronephrosis, stone or mass. IMPRESSION: Negative examination. Carlo Barros DO ORDERABLES Final Result documented in this encounter Visit Diagnoses Diagnosis Renal failure, unspecified chronicity Urinary retention Retention of urine, unspecified Renal failure, unspecified chronicity Urinary retention Retention of urine, unspecified documented in this encounter Care Teams Chin Strap Cutter Relationship Specialty Start Date End Date Carlo Barros DO PCP - General Family Practice 04/11/18 documented as of this encounter
--- OUTSIDE RECORDS SUMMARY | 2025-01-04 21:53 | XMS_ITS | Encounter Summary ---
Author Organization [facility] Address [address] [facility] [address] [place] [address] Phone Care Team Providers Care Warehouse Selector Name Role Phone Carol Barros DO Primary Care Provider [phone] Encounter Details Date Type Department Care Team (Late st Contact Info) Description 09/13/2019 Orders Only [facility] [address] [place] [address] Mathew Mcfarlane MD [address] [place] [address] Chronic kidney disease stage 3 (HCC) Social History Tobacco Use Types Packs/Day [...] as of this encounter Visit Diagnoses Diagnosis Chronic kidney disease stage 3 (HCC) documented in this encounter Care Teams Warehouse Selector Relationship Specialty Start Date End Date Carlo Barros DO [address] [place] [address] PCP - General Family Medicine 08/03/18 documented as of this encounter
--- OUTSIDE RECORDS SUMMARY | 2025-01-04 21:53 | XMS_ITS | Clinical Summary ---
Author Organization [email or web address] Address [address] [facility] Attn: Epic Prelude ADT TESSY BALDERAS [address] Care Team Providers Care Neurosurgical Nurse Name Role Phone Carlo Barros DO Primary Care Provider Unavaila ble Allergies Active Allergy Reactions Criticality Noted Date Comments Citalopram Unknown 08/30/2018 Donepezil Unknown 09/13/2018 Medications phenazopyridine 97.5 mg Tablet Take 97.5 mg by mouth 2 times daily. 07/04/19 Active Additional Information Patient taking differently: 95 mgOral TWO TIMES DAILY, Reported on 05/19/2022 acetaminophen (TYLENOL) 325 mg tablet Take 650 mg by mouth every 4 hours as needed. 08/31/19 Active Additional Information Patient taking differently:650 mg OralEVERY 6 HOURS PRN, Reported on 11/08/2022 insulin glargine (LANTUS) 100 unit/mL injection Inject 17 Units by subcutaneous injection daily at bedtime . 07/04/19 Active Additional Information Patient taking differently: 38 UnitssubCUT DAILY AT BEDTIME, Reported on 05/19/2022 metoprolol succinate (TOPROL XL) 50 mg Extended Release 24 hour tablet Take 50 mg by mouth daily. 09/14/19 Active magnesium hydroxide (MILK OF MAGNESIA) 400 mg/5 mL suspension Take 30 mL by mouth 1 time daily as needed for Constipation. 03/12/20 19 Active furosemide (LASIX) 20 mg tablet Take 20 mg by mouth every other day . 07/04/19 Active aspirin (CARINE CHEWABLE) 81 mg Tablet, Chewable Take 81 mg by mouth daily. 08/13/19 Active HYDROcodone-acetam inophen (NORCO) 5-325 mg tablet Take 1 Tablet by mouth every 12 hours . 08/13/19 Active cetirizine (ZyrTEC) 10 mg tablet Take 10 mg by mouth daily. 08/13/19 Active polyethylene glycol 3350 (MIRALAX) 17 gram/dose Powder Take 17 Grams by mouth daily Dissolve in 8 ounces of fluid and drink entire liquid . 08/13/19 Active Additional Information Patient taking differently:17 Gram OralDAILY LATE, Reported on 11/08/2022 omeprazole (PriLOSEC) 20 mg Capsule, Delayed Release(E.C.) Take 20 mg by mouth daily. 08/13/19 Active SENNOSIDES ORAL Take 1 Tablet by mouth. 08/13/19 Active Additional Information Patient taking differently:1 Tablet OralTWO TIMES DAILY, Reported on 11/08/2022 atorvastatin 20 mg tablet Take 20 mg by mouth daily at bedtime. Active insulin lispro (U-100) 100 unit/mL subcutaneous solution Inject 12 Units by subcutaneous injection 3 times daily with meals. Active ipratropium/albute rol sulfate (IPRATROPIUM-ALBUT VIRGIE INHALATION) Take 1 Applicatorful by inhalation every 6 hours as needed for Other (See Comment) (wheezing). Active aluminum-mag hydroxide-simethic one 200 mg-200 mg-20 mg/5 mL oral susp Take 30 mL by mouth every 8 hours as needed for Other (See Comment) (upset stomach). Active nystatin 100,000 unit/gram topical powder Apply to affected area every 8 hours as needed for Other (See Comment) (Apply to groin as needed for red irritation). Active ondansetron 4 mg disintegrating tablet Take 4 mg by mouth every 4 hours as needed for Nausea/Emesis. Dissolve tablet on top of tongue, then swallow with saliva. Active memantine 14 mg capsule sprinkle,extended release 24hr Take 14 mg by mouth daily. Active bisacodyL (DULCOLAX) 10 mg Suppository Insert 10 mg by rectum 1 time daily as needed for Constipation. Active naloxone 1 mg/mL injection syringe Inject 2 mg by intramuscular injection see administration instructions. As needed Active acidophillus citrus pectin 25 million cell/100 mg (LACTINEX) 25 million cell -100 mg Tablet Take 2 Tablets by mouth 3 times daily with meals. 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 07/03/2018 Displaced intertrochanteric fracture of right femur, sequela 04/08/2017 Iron deficiency anemia 06/12/2015 Mixed hyperlipidemia 06/12/2015 Personal history of fall 06/12/2015 Type 2 diabetes mellitus without complication Essential hypertension, benign 06/12/2015 COPD (chronic obstructive pulmonary disease) Urinary retention 06/12/2015 Weakness generalized 06/12/2015 Chronic kidney disease, unspecified 06/12/2015 Resolved Problems Problem Noted Date Diagnosed Date Resolved Date COPD with exacerbation 11/08/202211/13 Leukocytosis 08/30/2018 09/02/2018 Traumatic hemorrhage of cere man without loss of consciousness 06/12/2015 02/11/2019 Encounters Date Type Department Care Team Description 12/11/2024 External Device Data ST[facility] ABSTRACTION Provider, Abstract 12/10/2024 External Device Data [facility] ABSTRACTION Provider, Abstract 12/06/2024 3:06 PM CDT - 12/06/2024 8:41 PM CDT Emergency [facility] Emergency Medicine [address] [facility] [address] [place] [address] Charlotte Monahan MD Severe anemia (Primary Dx) Discharge Disposition: Home or Self Care 12/06/2024 - 12/06/2024 11:59 PM CDT Hospital Encounter [facility] Emergency Medical Services [place] [address] [place] [address] Ambulance, [facility] Discharge Disposition: [facility] 12/06/2024 Travel from Last 3 Months Immunizations Immunization Administration Dates Next Due (ADACEL/BOOSTRIX)(10 YR UP) TDAP VACCINE, 0.5ML, IM 06/16/2016 (PNEUMOVAX 23)(50 YRS UP) PN EUMOCOCCAL POLYSACCHARIDE (PPV23) 0.5 ML, IM 11/12/2022(Deferred: - already received at [facility] [place]) (PREVNAR 13)(6 WKS UP) PNEUM OCOCCAL CONJUGATE (PCV13) 0.5 ML, IM 06/24/2014 Influenza Seasonal Unspecifi ed Formulation IM 04/05/2006 Influenza Seasonal Unspecifi ed Formulation PF IM 02/29/2016,02/04/2015,01/22/2014 Influenza, Unspecified Formulation 02/04,01/09/2013,01/11/2012,01/10,01/31/2010,01/20/2009,02/22/2008 ,01/23/2008,03/26/2007 Pneumococcal vaccine, unspec ified formulation 2007 Td(adult) Unspecified Formulation 03/06/2010 Zoster Vaccine Live SQ 12/22/2011 Social History Tobacco Use Types Packs/Day Years Used Date Smoking Tobacco: Former Cigarettes Smokeless Tobacco: Never Tobacco Cessation:Counseling Given: No Alcohol Use Standard Drinks/Week Comments No 0 (1 standard drink = 0.6 oz pur e alcohol) Feeling Safe Answer Date Recorded Are you in a relationship wi th someone who hurts you emotionally and/or physically? 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 Gender Identity Not on file Sexual Orientation Not on file Last Filed Vital Signs Vital Sign Reading Time Taken Comments Blood Pressure 141/64 12/06/2024 8:07 PM CDT Pulse 70 07/25/2024 11:34 AM CDT Temperature 36.3 C (97.3 F) 12/06/2024 8:07 PM CDT Respiratory Rate 16 12/06/2024 8:07 PM CDT Oxygen Saturation 95% 12/06/2024 8:07 PM CDT Inhaled Oxygen Concentration - - Weight 66.5 kg (146 lb 9.6 oz) 12/06/2024 3:06 P M CDT Height 167.6 cm (5' 6 ) 12/06/2024 3:06 PM CDT Body Mass Index 23.66 12/06/2024 3:06 PM CDT Plan of Treatment Upcoming Encounters Date Type Department Care Team (Late st Contact Info) Description 03/10/2025 8:30 AM CHRISTIAN SCIENCE HEALER Office Visit [facility] [place] [address] [place] [address] Alicia Jones FNP [address] [place] [address] 06/19/2025 9:00 AM CHRISTIAN SCIENCE HEALER Appointment [facility] Neurology [facility] [address] [place] [address] Wally Wolfe MD [address] [place] [address] Health Maintenance Due Date Last Done Comments DIABETES ANNUAL FOOT EXAM 12/25/1958 DIABETES MICROALBUMIN ANNUAL SCREEN 12/25/1959 LDL CHOLESTEROL ANNUAL 12/25/1959 DIABETES ANNUAL RETINAL EXAM 03/12/2009 03/12/2008 ZOSTER VACCINE (2 of 3) 02/16/2012 12/22/2011 RSV VACCINE (60+ or ) (1 - 1-dose 75+ series) 2016 INFLUENZA VACCINE (#1) 2024 , 02/14/2022, 02/04/2021, Additional history exists COVID-19 Vaccine (6 - 2024-2 6 season) 2024 04/22/2022, 12/15/2021, 03/24/2021, Additional history exists DIABETES HBA1C Q 6 MONTHS 04/24/20252024, 10/10/2024, 08/01/2024, Additional history exists DTAP/TDAP/TD VACCINES (3 - T d or Tdap) 08/25/2026 08/25/2016, 06/16/2016, 03/06/2010 PNEUMOCOCCAL VACCINE 50+ YEARS Completed 0 01/13/2023, 08/03/2017, 02/21/2017, Additional history exists Procedures Procedure Name Priority Date/Time Associated Diagnosis Comments OCCULT BLOOD GUAIAC DIAGNOSTIC Stat 12/06/2024 3:48 PM CDT VERIFICATION BLOOD GROUP Stat 12/06/2024 3:40 PM CDT TYPE AND SCREEN Stat 12/06/2024 3:20 PM CDT PREPARE RED BLOOD CELLS Stat 12/06/2024 3:20 PM CDT COMPREHENSIVE METABOLIC PANEL Stat 12/06/2024 3:20 PM CDT CBC WITH DIFFERENTIAL Stat 12/06/2024 3:20 PM CDT HEMOGLOBIN A1C Routine 09/13/2018 1:13 PM CDT from Last 3 Months or Most Recently Relevant to Health Maintenance Results * TRANSFUSE RED BLOOD CELLS (12/06/2024 7:08 PM CDT) us Charlotte Monahan MD BLOOD TRANSFUSION ORDERABLES Final Result * OCCULT BLOOD GUAIAC DIAGNOSTIC (12/06/2024 3:48 PM CDT) OCCULT BLOOD, STOOL Negative Negative 12/06/2024 4:50 PM CDT [facility] Stool STOOL SPECIMEN / Unknown Collection / Unknown 12/06/2024 3:48 PM CDT 12/06/2024 4:47 PM CDT us Charlotte Monahan MD BODY FLUIDS AND STOOLS Final Result [facility] CLIA # [id number] [address] [place] [address] * VERIFICATION BLOOD GROUP (12/06/2024 3:40 PM CDT) ABO/RH TYPE A POS 12/06/2024 4:19 PM CDT [facility] Blood Venipuncture / Unknown 12/06/2024 3:40 PM CDT 12/06/2024 4:03 PM CDT us Charlotte Monahan MD BLOOD BANK ORDERABLES Final Result Performing Organization Address [facility]/ZIP Co de Phone Number [facility] CLIA # [id number] [address] [place] [address] * PREPARE RED BLOOD CELLS (12/06/2024 3:20 PM CDT) CROSSMATCH COMPATIBLE Compatible 12/06/2024 4:18 PM CDT [facility] NUMBER OF UNITS 1 12/06/2024 4:18 PM CDT [facility] PACKED RED BLOOD CELLS [id number] 12/06/2024 4:18 PM CDT [facility] BLOOD BANK PRODUCT [id number] 12/06/2024 4:18 PM CDT [facility] PRBC #1 - DONOR UNIT EXPIRATION 12/30/24 12/06/2024 4:18 PM CDT [facility] PRBC #1 - DONOR UNIT TYPE A POS 12/06/2024 4:18 PM CDT [facility] POSITIVE AB SCREEN OR HISTORY? No 12/06/2024 4:18 PM CDT [facility] Other, specify 12/06/2024 3: 20 PM CDT 12/06/2024 3:34 PM CDT us Charlotte Monahan MD LAB TRANSFUSION ORDERABLES F inal Result Performing Organization Address [facility]/ZIP Co de Phone Number [facility] CLIA # [id number] [address] [place] [phone] * (ABNORMAL) CBC WITH DIFFERENTIAL (12/06/2024 3:20 PM CDT) WBC 7.6 4.2 - 9.1 K/uL 12/06/2024 3:49 PM [facility] RBC 2.19(L) 4.63 - 6.08 M/uL 12/06/2024 3:49 PM [facility] HEMOGLOBIN 7.0(L) 13.7 - 17.5 g/dL 12/06/2024 3:49 PM [facility] HEMATOCRIT 21.9(L) 40.1 - 51.0 % 12/06/2024 3:49 PM [facility] MCV 100.0(H) 79.0 - 92.2 fL 12/06/2024 3:49 PM [facility] MCH 32.0 25.7 - 32.2 pg 12/06/2024 3:49 PM [facility] MCHC 32.0(L) 32.3 - 36.5 g/dL 12/06/2024 3:49 PM [facility] RDW 14.1 11.0 - 14.5 % 12/06/2024 3:49 PM [facility] RDW-STDEV 51.5 36.9 - 56.9 fL 12/06/2024 3:49 PM [facility] PLATELETS 340 130 - 400 K/uL 12/06/2024 3:49 PM [facility] MPV 9.7(L) 10.0 - 14.8 fL 12/06/2024 3:49 PM [facility] NEUTROPHILS 53 34 - 68 % 12/06/2024 3:49 PM [facility] LYMPHOCYTES 32 22 - 53 % 12/06/2024 3:49 PM [facility] MONOCYTES 10 5 - 12 % 12/06/2024 3:49 PM [facility] EOSINOPHILS 5 1 - 7 % 12/06/2024 3:49 PM [facility] BASOPHILS 0 0 - 1 % 12/06/2024 3:49 PM [facility] IMMATURE GRANULOCYTES 0 % 12/06/2024 3:49 PM CDT [facility] NEUTROPHIL ABSOLUTE 4.02 1.78 - 5.38 K/uL 12/06/2024 3:49 PM CDT [facility] LYMPHOCYTE ABSOLUTE 2.40 1.20 - 3.40 K/uL 12/06/2024 3:49 PM CDT [facility] MONOCYTE ABSOLUTE 0.75 0.30 - 0.82 K/uL 12/06/2024 3:49 PM CDT [facility] EOSINOPHIL ABSOLUTE 0.39 0.04 - 0.54 K/uL 12/06/2024 3:49 PM CDT [facility] BASOPHILS ABSOLUTE 0.02 0.01 - 0.08 K/uL 12/06/2024 3:49 PM CDT [facility] IMMATURE GRANULOCYTES ABSOLUTE 0.02 K/uL 12/06/2024 3:49 PM CDT [facility] Blood 12/06/2024 3:20 PM CDT 12/06/2024 3:40 PM CDT Charlotte Monahan MD HEMATOLOGY ORDERABLES Final Result Performing Organization Address [facility]/ZIP Co de Phone Number [id number] [address] [place] [phone] * TYPE AND SCREEN (12/06/2024 3:20 PM CDT) ABO/RH TYPE A POS 12/06/2024 4:17 PM CDT [facility] ANTIBODY SCREEN Negative 12/06/2024 4:17 PM CDT [facility] Blood 12/06/2024 3:20 PM CDT 12/06/2024 3:40 PM CDT Charlotte Monahan MD BLOOD BANK ORDERABLES Final Result Performing Organization Address [facility] Co de Phone Number [facility] [id number] [address] [place] [phone] * (ABNORMAL) COMPREHENSIVE METABOLIC PANEL (12/06/2024 3:[address] [facility]) SODIUM 129(L) 136 - 145 mmol/L 12/06/2024 4:02 PM [facility] POTASSIUM 4.8 3.5 - 5.1 mmol/L 12/06/2024 4:02 PM [facility] CHLORIDE 98 98 - 107 mmol/L 12/06/2024 4:02 PM [facility] CO2 20(L) 22 - 29 mmol/L 12/06/2024 4:02 PM [facility] CALCIUM 8.6(L) 8.8 - 10.2 mg/dL 12/06/2024 4:02 PM [facility] BUN 37(H) 8 - 23 mg/dL 12/06/2024 4:02 PM [facility] CREATININE 1.55(H) 0.67 - 1.17 mg/dL 12/06/2024 4:02 PM [facility] Comment:The GFR result is no t clinically significant on patients <18 or >70 years of age. GLUCOSE 236(H) 74 - 99 mg/dL 12/06/2024 4:02 PM [facility] TOTAL PROTEIN 6.1(L) 6.6 - 8.7 g/dL 12/06/2024 4:02 PM [facility] ALBUMIN 3.0(L) 3.5 - 5.2 g/dL 12/06/2024 4:02 PM [facility] BILIRUBIN TOTAL 0.2 0.0 - 1.2 mg/dL 12/06/2024 4:02 PM [facility] ALKALINE PHOSPHATASE 120 40 - 129 U/L 12/06/2024 4:02 PM [facility] AST 16 0 - 50 U/L 12/06/2024 4:02 PM [facility] ALT <5 0 - 50 U/L 12/06/2024 4:02 PM [facility] GFR 44 mL/min/1.7 3 sq meter 12/06/2024 4:02 PM CDT [facility] Comment:eGFR calculated with 2020 CKD-EPI equation. Vegetarian diet, extremely high or low muscle mass, and may affect results. Cystatin C with Glomerular Filtration Rate is a suitable alternative for these patients. ANION GAP 11 5 - 20 mmol/L 12/06/2024 4:02 PM CDT [facility] Blood 12/06/2024 3:20 PM CDT 12/06/2024 3:40 PM CDT us Charlotte Monahan MD CHEMISTRY ORDERABLES Final R esult Performing Organization Address [facility]/ZIP Co de Phone Number [facility] CLIA # [id number] [address] [place] [phone] * (ABNORMAL) HEMOGLOBIN A1C (09/13/2018 1:13 PM CDT) HEMOGLOBIN A1C 7.0(H) See comment % 09/13/2018 1:45 PM CDT [facility] EST. AVG GLUCOSE, A1C 154 mg/dL 09/13/2018 1:45 PM CDT [facility] Blood Venipuncture / Unknown 09/13/2018 1:13 PM CDT 09/13/2018 1:22 PM CDT Narrative [facility] - 09/13/2018 1:45 PM CDT HGB A1C INTERPRETATION NORMAL: <5.7% PRE-DIABETES: 5.7 - 6.4% DIABETES: 6.5% OR GREATER us Mart Tobin DO CHEMISTRY ORDERABLES Lilibeth l Result Performing Organization Address [facility] Co de Phone Number [facility] CLIA # [id number] [address] [place] [phone] [facility] CLIA # [id number] [address] [place] [phone] from Last 3 Months or Most Recently Relevant to Health Maintenance Insurance MEDICARE PART A AND B FOR LIFE GENERIC PAYOR [address] [place] [address] Advance Directives For more information, please contact: [phone] Documents on File Type Date Recorded 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 intubation): No Mechanical Ventilation (for respiratory distress) - Non-Invasive (i.e. BiPAP, CPAP): Yes Care Teams Neurosurgical Nurse Relationship Specialty Start Date End Date Carlo Barros DO PCP - General Family Practice 04/11/18
--- NOTE | 2025-01-04 22:06 | CTR_ITS ---
PROCEDURE INFORMATION: Exam: CT Head Without Contrast Exam date and time: 01/04/2025 10:28 PM Age: 84 years old Clinical indication: Altered mental status/memory loss; Confusion or disorientation; EMS arrival from alf for AMS. Patient lethargic. TECHNIQUE: Imaging protocol: Computed tomography of the head without contrast. Radiation optimization: All CT scans at this facility use at least one of these dose optimization techniques: automated exposure control; mA and/or kV adjustment per patient size (includes targeted exams where dose is matched to clinical indication); or iterative reconstruction. COMPARISON: CT head wo con* [id number] 05/19/2024 3:28 PM RADIATION DOSE METRICS: Total DLP (mGy-cm): 1039.28 FINDINGS: Brain: Periventricular white matter hypoattenuation favors sequela of chronic ischemic microvascular disease. Cerebral volume loss is noted, likely age related. No acute intracranial hemorrhage. Parks-white differentiation is maintained. No evidence of acute ischemic stroke. Cerebral ventricles: Mildly decreased biventricular diameter 4.7 cm of the level of the foramen Monro, previously 5.0 cm. Paranasal sinuses: Visualized sinuses are unremarkable. No fluid levels. Mastoid air cells: Visualized mastoid air cells are well aerated. Bones: Unremarkable. No acute fracture. Soft tissues: Unremarkable. Other findings: Evaluation is somewhat limited secondary to motion artifact. CT/CT head wo con* [id number] IMPRESSION: 1. No acute intracranial process. 2. White matter changes favored to represent sequela of chronic microvascular disease. 3. Mildly improved hydrocephalus from 05/19/2024. Correlate for symptoms of normal pressure hydrocephalus.
--- NOTE | 2025-01-04 22:06 | XRR_ITS ---
PROCEDURE INFORMATION: Exam: XR Chest Exam date and time: 01/04/2025 10:22 PM Age: 84 years old Clinical indication: EMS arrival from assisted for AMS. TECHNIQUE: Imaging protocol: Radiologic exam of the chest. Views: 1 view. COMPARISON: CR XR chest 1V portable [id number] 05/19/2024 3:27 PM FINDINGS: Lungs: Minimal airspace opacification in the left lower lobe. Pleural spaces: Unremarkable. No pleural effusion. No pneumothorax. Heart/Mediastinum: Unremarkable. No cardiomegaly. Vasculature: Atherosclerotic changes of the aorta are noted. Bones/joints: Posterior left 7th rib fracture deformity, not clearly identified on 08/2023. XR/XR chest 1V portable [id number] IMPRESSION: 1. Minimal left lower lobe airspace opacity, favored to represent atelectasis. Superimposed airspace disease is not excluded. 2. Posterior left 7th rib fracture deformity, age-indeterminate. Correlate with physical exam.
--- NOTE | 2025-01-04 22:07 | CTR_ITS ---
PROCEDURE INFORMATION: Exam: CT Abdomen And Pelvis Without Contrast Exam date and time: 01/04/2025 10:30 PM Age: 84 years old Clinical indication: Bloating and other: Hematuria; Prior surgery; Surgery date: 6+ months; Surgery type: RT troc nail; EMS arrival from [facility] for AMS. Abd distention with hematuria. Morelos in place. ; Additional info: Abd pain, distension, hematuria TECHNIQUE: Imaging protocol: Computed tomography of the abdomen and pelvis without contrast. Radiation optimization: All CT scans at this facility use at least one of these dose optimization techniques: automated exposure control; mA and/or kV adjustment per patient size (includes targeted exams where dose is matched to clinical indication); or iterative reconstruction. COMPARISON: CR (CHEST, ) 01/04/2025 10:22 PM RADIATION DOSE METRICS: Total DLP (mGy-cm): 689.06 FINDINGS: Coronary arteries: Mild three-vessel coronary atherosclerosis present. Liver: Hepatic granulomas are present, likely sequela of prior infection or granulomatous changes. The liver is otherwise within normal limits. Gallbladder and biliary ducts: Normal. No calcified stones. No ductal dilation. Pancreas: Normal. No ductal dilation. Spleen: Parenchymal calcifications are seen throughout the spleen, likely reflecting prior granulomatous changes. The spleen is otherwise normal. Adrenal glands: The bilateral adrenal glands are mildly thickened, which is nonspecific but can be seen in the setting of adenomatous hyperplasia. Kidneys and ureters: Bilateral extrarenal pelvises are noted. The kidneys are normal. Stomach and bowel: Otherwise, the large and small bowel are normal in course and caliber without evidence of wall thickening or obstruction. Appendix: No evidence of appendicitis. Intraperitoneal space: Unremarkable. No free air. No significant fluid collection. Vasculature: Mild atherosclerosis of the aorta and its major branching vessels is noted. Lymph nodes: Unremarkable. No enlarged lymph nodes. Urinary bladder: A 3 mm stone in the dependent urinary bladder may represent a passed urinary bladder stone. A Morelos catheter is appropriately seated within the urinary bladder, which is underdistended and poorly characterized. Reproductive: The prostate is enlarged. Extraperitoneal space: Presacral fat stranding is noted. Moderate gaseous distension of the colon is present. No mechanical obstruction is seen. Bones/joints: Multiple ossific densities in the renal hilum are favored to represent vascular calcifications. Tiny nonobstructive stones are not excluded. Degenerative joint and disc disease is seen in the imaged spine. Flowing anterior osteophytes are seen at multiple spinal levels, consistent with diffuse idiopathic skeletal hyperostosis (DISH). Partially imaged internal fixation of the right hip/proximal femur is noted. No acute complication. The bones appear osteopenic. Soft tissues: Unremarkable. CT/CT kidney stone [id number] IMPRESSION: 1. A 3 mm stone in the dependent bladder, which may represent a passed stone. 2. Prostatomegaly. Correlate with PSA. 3. Moderate gaseous distension of the colon without mechanical obstruction. 4. Suggested osteopenia. 5. Incidental findings as above.
[2025-01-04 23:17] VITALS: BP 128/74; PULSE 91; RESP 18; O2SAT 100
[2025-01-04 23:17] LABS: Hematocrit 26.6 % (37-53); Hemoglobin 8.40 g/dL (11.27-16.99); Mean Corpuscular HGB Conc 31.6 g/dL (30-55); Mean Corpuscular Hemoglobin 31.1 pg (27-33); Mean Corpuscular Volume 98.5 fl (82-101); Nucleated Red Blood Cells % 0 %; Platelet Count 344 10^3/cmm (157-399); Red Blood Count 2.70 10^6/uL (3.85-5.65); White Blood Count 26.93 10^3/uL (3.29-11.43)
[2025-01-04 23:19] LABS: Glucose Urine UA Negative (Normal); Nitrate Urine Positive (Negative); Specific Gravity, Urine 1.018 (1.005-1.030)
[2025-01-04 23:23] LABS: Add Urine Microscopic? YES
[2025-01-04 23:24] LABS: Alanine Aminotransferase 8 U/L (0-41); Albumin Level 2.7 g/dL (3.5-5.2); Alkaline Phosphatase 127 U/L (40-130); Anion Gap 18.6 (5-19); Aspartate Amino Transferase 19 U/L (0-40); Blood Urea Nitrogen 49 mg/dL (8-23); Calcium 8.3 mg/dL (8.5-10.5); Carbon Dioxide 20 mmol/L (22-29); Chloride 93 mmol/L (98-107); Globulin 3.5 g/dL (1.3-4.6); Glucose 238 mg/dL (65-115); Lactic Sepsis W/Reflex 1.8 mmol/L (0.5-2.2); Osmolality Calculated 285 mOsm/kg (285-295); Potassium 4.6 mmol/L (3.5-5.1); Sodium 127 mmol/L (136-145); Total Protein 6.2 g/dL (6.6-8.7)
[2025-01-04 23:32] LABS: Creatinine Clr Calc Pharmacy 16.0457
[2025-01-04 23:33] LABS: UA Slide Review UA Slide Review Perf
[2025-01-04] MEDS: cefTRIAXone 1,000 mg SDV 1000 MG IVP (23:36)
[2025-01-05] VITALS (13 sets, daily range): BP systolic 104–177; BP diastolic 53–78; PULSE 71–94; RESP 16–20; TEMP 36.5–37.1; O2SAT 92–97; BMI 22.9
--- NOTE | 2025-01-05 00:40 | W.ED.MALEGU ---
HPI - Male Genitourinary General: Chief complaint: Urogenital-Male Stated complaint: possible uti Time Seen by Provider: 01/04/25 21:46 History of Present Illness: Patient is an 84-year-old male [facility] resident who reports feeling feverish. He describes his urine as being really dark recently. The patient also reports a cough and bilateral lower extremity swelling. He denies vomiting but endorses abdominal tenderness on examination. The patient states he hasn't been here in a while, suggesting this may be a follow-up visit or transfer from another facility. When questioned about respiratory symptoms, the patient initially denied trouble breathing, though his responses were somewhat limited during the interview. The abdominal tenderness appears to be significant enough to cause discomfort during examination, and the abdomen was noted to be distended. Related Data Home Medications ?Medication ?Instructions ?Recorded ?Confirmed acetaminophen 325 mg tablet 650 mg PO Q6H PRN PAIN OR ELEVATED 09/11/23 01/05/25 TEMP aluminum-mag hydroxide-simethicone 30 ml PO Q8H PRN UPSET STOMACH 09/11/23 01/05/25 200 mg-200 mg-20 mg/5 mL oral susp aspirin 81 mg tablet,delayed 81 mg PO DAILY 09/11/23 12/26/24 release atorvastatin 20 mg tablet 20 mg PO BEDTIME 09/11/23 01/05/25 bisacodyl 10 mg rectal suppository 10 mg IA DAILY PRN Constipation 09/11/23 01/05/25 furosemide 20 mg tablet 20 mg PO .QODAM 09/11/23 01/05/25 glucagon 1 mg solution for 1 mg IM ONCE PRN Anaphylaxis 09/11/23 01/05/25 injection (Glucagon Emergency Kit) ipratropium 0.5 mg-albuterol 3 mg 3 ml inhalation Q6H PRN Shortness 09/11/23 01/05/25 (2.5 mg base)/3 mL nebulization Of Breath soln magnesium hydroxide 400 mg/5 mL 30 ml PO DAILY PRN Constipation 09/11/23 01/05/25 oral suspension (Milk of Magnesia) memantine 14 mg capsule 14 mg PO QAM 09/11/23 01/05/25 sprinkle,extended release 24hr naloxone 2 mg/2 mL syringe kit 2 mg IM Q2M PRN OVERDOSE 09/11/23 01/05/25 omeprazole 20 mg capsule,delayed 20 mg PO QAM 09/11/23 01/05/25 release phenazopyridine 95 mg tablet 95 mg PO BID 09/11/23 01/05/25 sennosides 8.6 mg-docusate sodium 2 tab-cap PO BID 09/11/23 01/05/25 50 mg tablet (Senokot-S) fluoxetine 20 mg capsule 20 mg PO QAM 05/19/24 01/05/25 polyethylene glycol 3350 17 17 g PO QAM 05/19/24 01/05/25 gram/dose oral powder (Miralax) mecobalamin (vitamin B12) 1,000 1,000 mcg PO DAILY 07/02/24 01/05/25 mcg chewable tablet metoprolol succinate 50 mg 50 mg PO DAILY 07/02/24 01/05/25 tablet,extended release 24 hr (Toprol XL) trospium 20 mg tablet 20 mg PO DAILY 07/02/24 01/05/25 prenat.vits,claudette,pfy-lsas-gtwwh 1 tab PO DAILY 01/05/25 01/05/25 Previous Rx's ?Medication ?Instructions ?Recorded doxycycline hyclate 100 mg capsule 100 mg PO BID #14 caps 08/19/24 Allergies Allergy/AdvReac Type Severity Reaction Status Date / Time citalopram (From Celexa) Allergy Unknown Verified 12/26/24 06:46 donepezil (From Aricept) Allergy Unknown Verified 12/26/24 06:46 [facility] ED PFSH: Medical History (Updated 01/05/25 @ 05:39 by Milan Porter DO) Type 2 diabetes mellitus Acute kidney injury superimposed on chronic kidney disease Nausea & vomiting History of ESBL E. coli infection UTI (urinary tract infection) Hypertension Dysphagia Vitamin D deficiency Urinary retention CKD (chronic kidney disease) GERD (gastroesophageal reflux disease) COPD (chronic obstructive pulmonary disease) MDD (major depressive disorder) HLD (hyperlipidemia) Right shoulder pain Fall Chronic indwelling Morelos catheter BPH (benign prostatic hyperplasia) Dementia Encephalopathy Cystitis Family History (Updated 01/05/25 @ 01:52 by Angi Chavez MD) Other Diabetes mellitus, type 2 Social History Smoking and tobacco/nicotine status: unknown if used tobacco/nicotine Physical Exam Const: GENERAL APPEARANCE: cooperative, ill appearing and frail appearing ORIENTATION/CONSCIOUSNESS: Yes awake and Yes oriented to person; not oriented to place and not oriented to time HENMT: COMMON NORMALS: normocephalic, atraumatic and Normal external nose present HEAD & SCALP: normocephalic and atraumatic FACE & SINUS: normal facial exam NOSE: Normal external nose present Eye: COMMON NORMALS: Equal, round and reactive pupils present and EOMs intact bilaterally PUPIL: Yes Equal, round and reactive pupils present Neck/C-Spine: GENERAL: Yes trachea midline Chest: CHEST: Yes Symmetrical chest wall rise Resp: COMMON NORMALS: normal respiratory effort, No use of accessory muscles and clear to auscultation bilaterally AUSCULTATION: clear to auscultation bilaterally Cardio: COMMON NORMALS: regular rate and regular rhythm RATE: regular rate RHYTHM: regular rhythm GI: COMMON NORMALS: Soft to palpation PALPATION: Yes Soft to palpation and Yes Tenderness to palpation present (GI) (Diffuse) Extremity: NARRATIVE EXTREMITY EXAM: No significant edema Neuro: SENSORIUM/ORIENTATION: Yes oriented to person, No oriented to place and No oriented to time Course Vital Signs: Vital signs: Vital Signs Temperature 97.7 F 01/05/25 04:00 Pulse Rate 84 01/05/25 04:00 Respiratory Rate 18 01/05/25 04:00 Blood Pressure 107/60 01/05/25 04:00 Pulse Oximetry 93 01/05/25 04:00 Oxygen Delivery Me thod Room Air 01/05/25 04:00 [facility] - Male Medical Decision Making Patient was mildly hypotensive on arrival. Normotensive after sepsis bolus. His white blood cell count was 27, hemoglobin 8.5. Creatinine is up to 3.5. Baseline is 1.5-2. Urinalysis shows positive nitrate 3+ leukocyte esterase greater than 100 whites greater than [address] is performed, and shows a 3 mm stone in the dependent bladder, likely just passed. He received IV antibiotics after blood cultures. He will be admitted for sepsis with UTI, ALIZA, hyponatremia. Hospitalist agrees Lab Data 01/04/25 22:49 01/04/25 22:49 Radiology Impressions Chest X-Ray 01/04/25 22:06 IMPRESSION: 1. Minimal left lower lobe airspace opacity, favored to represent atelectasis. Superimposed airspace disease is not excluded. 2. Posterior left 7th rib fracture deformity, age-indeterminate. Correlate with physical exam. Head CT 01/04/25 22:06 IMPRESSION: 1. No acute intracranial process. 2. White matter changes favored to represent sequela of chronic microvascular disease. 3. Mildly improved hydrocephalus from 05/19/2024. Correlate for symptoms of normal pressure hydrocephalus. Abdomen/Pelvis CT 01/04/25 22:07 IMPRESSION: 1. A 3 mm stone in the dependent bladder, which may represent a passed stone. 2. Prostatomegaly. Correlate with PSA. 3. Moderate gaseous distension of the colon without mechanical obstruction. 4. Suggested osteopenia. 5. Incidental findings as above. Laboratory Results WBC 26.93 10^3/uL (3.29-11.43) H 01/04/25 22:49 RBC 2.70 10^6/uL (3.85-5.65) L 01/04/25 22:49 Hgb 8.40 g/dL (11.27-16.99) L 01/04/25 22:49 Hct 26.6 % (37-53) L 01/04/25 22:49 MCV 98.5 fl (82-101) 01/04/25 22:49 MCH 31.1 pg (27-33) 01/04/25 22:49 MCHC 31.6 g/dL (30-55) 01/04/25 22:49 RDW 15.2 % (12.1-15.1) H 01/04/25 22:49 Plt Count 344 10^3/cmm (157-399) 01/04/25 22:49 MPV 9.8 fL (7.4-10.4) 01/04/25 22:49 Neut % (Auto) 90.5 % 01/04/25 22:49 Lymph % (Auto) 4.9 % 01/04/25 22:49 [place] % (Auto) 3.0 % 01/04/25 22:49 Eos % (Auto) 0.0 % 01/04/25 22:49 Baso % (Auto) 0.1 % 01/04/25 22:49 Neut # (Auto) 24.34 10^3/uL (1.8-7.7) H 01/04/25 22:49 Lymph # (Auto) 1.3 10^3/uL (0.8-4.8) 01/04/25 22:49 [place] # (Auto) 0.8 10^3/uL (0.2-0.9) 01/04/25 22:49 Eos # (Auto) 0.0 10^3/uL (0.0-0.8) 01/04/25 22:49 Baso # (Auto) 0.0 10^3/uL (0.0-0.1) 01/04/25 22:49 Nucleated RBC % (auto) 0 % 01/04/25 22:49 Nucleated RBCs # 0.0 /100WBC 01/04/25 22:49 Sodium 127 mmol/L (136-145) L 01/04/25 22:49 Potassium 4.6 mmol/L (3.5-5.1) 01/04/25 22:49 Chloride 93 mmol/L (98-107) L 01/04/25 22:49 Carbon Dioxide 20 mmol/L (22-29) L 01/04/25 22:49 Anion Gap 18.6 (5-19) 01/04/25 22:49 BUN 49 mg/dL (8-23) H 01/04/25 22:49 Creatinine 3.5 mg/dL (0.7-1.2) H 01/04/25 22:49 GFR Calculation Not Reportable 01/04/25 22:49 Glucose 238 mg/dL (65-115) H 01/04/25 22:49 Calculated Osmolality 285 mOsm/kg (285-295) 01/04/25 22:49 Lactic Acid 1.8 mmol/L (0.5-2.2) 01/04/25 22:49 Calcium 8.3 mg/dL (8.5-10.5) L 01/04/25 22:49 Total Bilirubin 0.4 mg/dL (0.15-1.2) 01/04/25 22:49 AST 19 U/L (0-40) 01/04/25 22:49 ALT 8 U/L (0-41) 01/04/25 22:49 Alkaline Phosphatase 127 U/L (40-130) 01/04/25 22:49 C-Reactive Protein 306.3 mg/L (0.0-4.9) H 01/04/25 22:49 Total Protein 6.2 g/dL (6.6-8.7) L 01/04/25 22:49 Albumin 2.7 g/dL (3.5-5.2) L 01/04/25 22:49 Globulin 3.5 g/dL (1.3-4.6) 01/04/25 22:49 Urine Color [place] (Yellow) A 01/04/25 22:47 Urine Appearance Turbid (CLEAR) A 01/04/25 22:47 Urine pH 6.5 (5-7) 01/04/25 22:47 Ur Specific [place] 1.018 (1.005-1.030) 01/04/25 22:47 Urine Protein 3+ (Negative) A 01/04/25:47 Urine Glucose (UA) Negative (Normal) 01/04/25: Urine Ketones Negative (Negative) 01/04/25 22: Urine Blood 3+ (Negative) A 01/04/25 22:47 Urine Nitrate Positive (Negative) A 01/04/25:47 Urine Bilirubin 1+ (Negative) H 01/04/25 22:47 Urine Urobilinogen 1.0 mg/dL (Negative) 01/04/25 22:47 Ur Leukocyte Esterase 3+ (Negative) A 01/04/25 22:47 Urine RBC >100 /hpf (0-2) H 01/04/25 22:47 Urine WBC >100 /hpf (0-5) H 01/04/25 22:47 Ur Squamous Epith Cells 51-100 /hpf (0-5) 01/04/25 22:47 Amorphous Sediment Not Reportable 01/04/25:47 Urine Bacteria 4+ /hpf (NONE) H 01/04/25 22:47 Hyaline Casts 14.90 /lpf 01/04/25 22:47 All radiology interpretation(s) finalized by discharge Critical Care Time Critical Care Time: Critical Care Time: Yes Total Critical Care Time: 35 Attestation: This case had a high probability of a clinically significant, sudden, or life threatening deterioration of this patient's condition which required my full and direct attention, intervention and personal management. Time is independent of any procedures performed Discharge Plan Discharge Patient Disposition: Admitted As Inpatient Admit Provider: Angi Chavez Clinical Impression: Urinary tract infection due to ESBL Klebsiella, Acute on chronic renal failure, Sepsis Condition: Serious Coding Level of Care Code ED Appraisal Coordinator for Deshawn Bermudez
--- NOTE | 2025-01-05 01:27 | PM.HP ---
Providers/Chief Complaint Admitting Physician: Angi Chavez MD--patient seen after 12 midnight Primary Care Provider: Kay Johnson MD Chief Complaint: possible uti History of Present Illness Wiley Ruiz is a 84 year old male, in long-term resident who was found today to be somewhat more quiet than usual patient has indwelling Morelos catheter and had had UTI in the past with a recent ESBL Klebsiella. Morelos catheter was changed at the long-term urine was very dark patient had appeared very weak for that reason patient was brought to the emergency room for further evaluation. At the emergency room patient was found with a white count of 27,000 with left shift hemoglobin was down to 8.4 lactate 2.2 creatinine had increased from a baseline of 2 to a 3.5 WBC was greater then 100 upon my evaluating patient patient was shivering and cold having chills and having rigors though not spiking any temperature. This patient deserves to be admitted to general medical floor for treatment of UTI with early sepsis with associated weakness organ dysfunction with more acute renal failure on chronic patient be pancultured from blood and urine patient be covered with carbapenem for ESBL history Review of Systems Narrative: System review upon 10 organ review is significant for musculoskeletal disorder with weakness, vascular system with anemia, renal system significant for acute on chronic renal failure. Medications/Allergies Home Medications ?Medication ?Instructions ?Recorded ?Confirmed ?Last Taken ?Type acetaminophen 325 mg tablet 650 mg PO Q6H PRN PAIN OR ELEVATED 09/11/23 12/26/24 09/10/23 History TEMP aluminum-mag hydroxide-simethicone 30 ml PO Q8H PRN UPSET STOMACH 09/11/23 12/26/24 08/11/24 History 200 mg-200 mg-20 mg/5 mL oral susp aspirin 81 mg tablet,delayed 81 mg PO DAILY 09/11/23 12/26/24 08/11/24 History release atorvastatin 20 mg tablet 20 mg PO BEDTIME 09/11/23 12/26/24 08/11/24 History bisacodyl 10 mg rectal suppository 10 mg UT DAILY PRN Constipation 09/11/23 12/26/24 07/18/24 History furosemide 20 mg tablet 20 mg PO .QODAM 09/11/23 12/26/24 08/11/24 History glucagon 1 mg solution for 1 mg IM ONCE PRN Anaphylaxis 09/11/23 12/26/2408/08/25 History injection (Glucagon Emergency Kit) ipratropium 0.5 mg-albuterol 3 mg 3 ml inhalation Q6H PRN Shortness 09/11/23 12/26/24 08/11/24 History (2.5 mg base)/3 mL nebulization Of Breath soln magnesium hydroxide 400 mg/5 mL 30 ml PO DAILY PRN Constipation 09/11/23 12/26/24 09/10/23 History oral suspension (Milk of Magnesia) memantine 14 mg capsule 14 mg PO QAM 09/11/23 12/26/24 08/11/24 History sprinkle,extended release 24hr naloxone 2 mg/2 mL syringe kit 2 mg IM Q2M PRN OVERDOSE 09/11/23 12/26/24 Unknown History omeprazole 20 mg capsule,delayed 20 mg PO QAM 09/11/23 12/26/24 08/11/24 History release phenazopyridine 95 mg tablet 95 mg PO BID 09/11/23 12/26/24 08/11/24 History sennosides 8.6 mg-docusate sodium 2 tab-cap PO BID 09/11/23 12/26/24 08/11/24 History 50 mg tablet (Senokot-S) fluoxetine 20 mg capsule 20 mg PO QAM 05/19/24 12/26/24 08/11/24 History polyethylene glycol 3350 17 17 g PO QAM 05/19/24 12/26/24 08/11/24 History gram/dose oral powder (Miralax) mecobalamin (vitamin B12) 1,000 1,000 mcg PO DAILY 07/02/24 12/26/24 08/11/24 History mcg chewable tablet metoprolol succinate 50 mg 50 mg PO DAILY 07/02/24 12/26/24 08/11/24 History tablet,extended release 24 hr (Toprol XL) trospium 20 mg tablet 20 mg PO DAILY 07/02/24 12/26/24 08/11/24 History Pyridium 95 mg PO BID 08/08/24 12/26/24 1 Day Ago History ~08/07/24 doxycycline hyclate 100 mg capsule 100 mg PO BID #14 caps 08/19/24 12/26/24 Unknown Rx Allergies Allergy/AdvReac Type Severity Reaction Status Date / Time citalopram (From [employer]er[employer]) Allergy Unknown Verified 12/26/24 06:46 donepezil (From Aricept) Allergy Unknown Verified 12/26/24 06:46 PFSH Acute PFSH: Medical History Type 2 diabetes mellitus Acute kidney injury superimposed on chronic kidney disease Nausea & vomiting History of ESBL E. coli infection UTI (urinary tract infection) Hypertension Dysphagia Vitamin D deficiency Urinary retention CKD (chronic kidney disease) GERD (gastroesophageal reflux disease) COPD (chronic obstructive pulmonary disease) MDD (major depressive disorder) HLD (hyperlipidemia) Right shoulder pain Fall Chronic indwelling Morelos catheter BPH (benign prostatic hyperplasia) Dementia Encephalopathy Cystitis Family History (Updated 01/05/25 @ 01:52 by Angi Chavez MD) Other Diabetes mellitus, type 2 Social History Smoking and tobacco/nicotine status: unknown if used tobacco/nicotine Vitals/I&O/Wt Last Vital Signs Temp 98.2 F 01/04/25 21:43 Pulse 92 01/05/25 01:07 Resp 17 01/05/25 01:07 BP 114/65 01/05/25 01:07 Pulse Ox 97 01/05/25 01:07 O2 Del Method Room Air 01/05/25 01:07 Weight last 48 hrs Weight 81.647 kg Physical Exam Narrative: Patient is shivering, cold and having rigors. Patient had layers of blankets on him and his [place] for more blankets. Patient is mentating and making needs known he is not confused but had been reported to be quieter than usual HEENT normocephalic atraumatic neck neck is supple cardiovascular heart rate is regular lungs are pretty much clear abdomen is soft nontender nondistended remarkable for Morelos catheter draining tube gravity very dark urine with sediments. Extremities are intact no edema has good pulses neurology he has no focality lab studies lab studies reviewed and noted. Data 01/04/25 22:49 01/04/25 22:49 Micro: Microbiology 01/04/25 22:53 Blood Culture - Preliminary Blood SPECIMEN COLLECTED 01/04/25 22:49 Blood Culture - Preliminary Blood SPECIMEN COLLECTED A&P Assessment and plan 1. Acute cystitis: 2. Urinary tract infection due to ESBL Klebsiella: 3. Weakness: 4. Acute on chronic renal failure: 5. Peripheral neuropathy: 6. Dehydration: Plan: #1 Acute cystitis with weakness with further renal compromise - Equivalent to UTIs with sepsis - Admit to general medical floor with telemetry - Antibiotics with ertapenem 1 g IV daily to cover for ESBL UTI - Follow cultures of the urine and of the blood and optimize accordingly - IV normal saline gentle hydration #2 History of ESBL Klebsiella - This history will guide therapy with antibiotics - Must continue to monitor and optimize #3 Acute on chronic renal failure secondary to infection - Treat underlying infection - Dental hydration - This will be for a desired return of renal function to baseline, baseline is 1.6 or less creatinine #4 Leukocytosis - Follow-up with blood cultures - Continue to treat with IV antibiotics - The desire is that the white count will come down to normal as we continue to treat. #5 Dehydration -Continue to rehydrate #6 Weakness - PT OT in place #7 GI and DVT prophylaxis in place PDMP PDMP Reviewed: Not Reviewed Attestations Medical Necessity Statement*: Patient with acute cystitis with weakness and acute on chronic renal failure with much leukocytosis and rigors this is equivalent with UTI with sepsis patient with a history of ESBL Klebsiella UTI most optimized for 2 midnights inpatient stay Coding Level of Care Code Acute Code for [facility] Diagnoses Acute cystitis N30.00 Urinary tract infection due to ESBL Klebsiella N39.0; B96.89 Weakness R53.1 Acute on chronic renal failure N17.9; N18.9 Peripheral neuropathy G62.9 Dehydration E86.0
[2025-01-05] MEDS: heparin 5,000 unit/mL INJ 1 mL 5000 UNIT SUBCUT ×2 (02:52→13:07)
[2025-01-05] MEDS: sennosides-docusate Tablet 2 TAB PO ×2 (09:23→17:22)
[2025-01-05] MEDS: ertapenem 1,000 mg SDV 1000 MG IVP (09:29)
--- NOTE | 2025-01-05 10:34 | P.PN_ITS ---
Subjective 2 Subjective: Patient awakens easily. He reports no complaints. He states he is feeling better Vitals/I&O/Wt Last Vital Signs Temp 98.3 F 01/05/25 07:30 Pulse 88 01/05/25 07:30 Resp 17 01/05/25 07:30 BP 104/53 01/05/25 07:30 Pulse Ox 93 01/05/25 07:30 O2 Del Method Room Air 01/05/25 07:30 01/04/25 01/05/25 01/05/25 22:59 06:59 14:59 Intake Total 2449.41 / 2449.41 Output Total 300 / 300 Balance 2149.41 / 2149.41 Weight last 48 hrs Weight 64.773 kg Weight 64.592 kg Weight 81.647 kg Physical Exam 2 Narrative: Elderly male in no acute distress Heart is regular normal S1-S2 no loud murmur Lungs clear to auscultation without wheezes rales or rhonchi Abdomen soft nontender nondistended positive bowel sounds Extremities no clubbing cyanosis or edema Data 01/04/25 22:49 01/04/25 22:49 Micro: Microbiology 01/04/25 22:53 Blood Culture - Preliminary Blood SPECIMEN COLLECTED 01/04/25 22:49 Blood Culture - Preliminary Blood SPECIMEN COLLECTED A&P Assessment and plan 1. Acute cystitis: 2. Urinary tract infection due to ESBL Klebsiella: 3. Weakness: 4. Acute on chronic renal failure: 5. Peripheral neuropathy: 6. Dehydration: Plan: Acute cystitis with weakness and acute on chronic renal failure - Continue ertapenem; patient has a recent history of ESBL Klebsiella UTI - Follow cultures of the urine and of the blood and optimize accordingly - IV normal saline gentle hydration Acute on chronic renal failure secondary to infection - Treat underlying infection - Continue IV fluids - This will be for a desired return of renal function to baseline, most recent serum creatinines ranged between 1.4 and 1.7 Weakness - PT OT in place Discharge plan. Patient is assisted resident will return. Too early to tell if patient will need IV antibiotics or can be converted to oral. PDMP PDMP Reviewed: Not Reviewed Attestations 2 Medical Necessity Statement*: Patient with acute cystitis with weakness and acute on chronic renal failure with much leukocytosis and rigors this is equivalent with UTI with sepsis patient with a history of ESBL Klebsiella UTI most optimized for 2 midnights inpatient stay Coding Level of Care Code Acute Code for [facility] Diagnoses Acute cystitis N30.00 Urinary tract infection due to ESBL Klebsiella N39.0; B96.89 Weakness R53.1 Acute on chronic renal failure N17.9; N18.9 Peripheral neuropathy G62.9 Dehydration E86.0
[2025-01-05 13:24] LABS: Hematocrit 25.7 % (37-53); Hemoglobin 7.80 g/dL (11.27-16.99); Mean Corpuscular HGB Conc 30.4 g/dL (30-55); Mean Corpuscular Hemoglobin 32.2 pg (27-33); Mean Corpuscular Volume 106.2 fl (82-101); Nucleated Red Blood Cells % 0 %; Platelet Count 284 10^3/cmm (157-399); Red Blood Count 2.42 10^6/uL (3.85-5.65); White Blood Count 19.53 10^3/uL (3.29-11.43)
[2025-01-05 13:44] LABS: Anion Gap 14.2 (5-19); Blood Urea Nitrogen 45 mg/dL (8-23); Calcium 7.8 mg/dL (8.5-10.5); Carbon Dioxide 20 mmol/L (22-29); Chloride 103 mmol/L (98-107); Creatinine Clr Calc Pharmacy 18.8209; Glucose 113 mg/dL (65-115); Osmolality Calculated 288 mOsm/kg (285-295); Potassium 4.2 mmol/L (3.5-5.1); Sodium 133 mmol/L (136-145)
[2025-01-05 17:53] LABS: Bacteroides fragilis Not Detected (NOT DETECT); Citrobacter Not Detected (NOT DETECT); Cronobacter sakazakii Not Detected (NOT DETECT); Enterobacter non cloacae Not Detected (NOT DETECT); Fusobacterium necrophorum Not Detected (NOT DETECT); Fusobacterium nucleatum Not Detected (NOT DETECT); IMP Resistance Gene Not Detected (NOT DETECT); KPC Resistance Gene Not Detected (NOT DETECT); Klebsiella pneumoniae group Not Detected (NOT DETECT); Morganella morganii Not Detected (NOT DETECT); NDM Resistance Gene Not Detected (NOT DETECT); OXA Resistance Gene Not Detected (NOT DETECT); Pan Candida Not Detected (NOT DETECT); Pan Gram-Positive Not Detected (NOT DETECT); Proteus mirabilis Not Detected (NOT DETECT); Serratia Not Detected (NOT DETECT); Serratia marcescens Not Detected (NOT DETECT); Stenotrophomonas maltophilia Not Detected (NOT DETECT); VIM Resistance Gene Not Detected (NOT DETECT)
[2025-01-05 18:10] LABS: CTX-M Detected (NOT DETECT)
[2025-01-06] VITALS (9 sets, daily range): BP systolic 104–136; BP diastolic 63–70; PULSE 92–107; RESP 16–18; TEMP 36.7–37; O2SAT 90–96
[2025-01-06] MEDS: heparin 5,000 unit/mL INJ 1 mL 5000 UNIT SUBCUT ×2 (01:25→13:31)
[2025-01-06 03:23] LABS: Hematocrit 22.5 % (37-53); Hemoglobin 6.90 g/dL (11.27-16.99); Mean Corpuscular HGB Conc 30.7 g/dL (30-55); Mean Corpuscular Hemoglobin 31.1 pg (27-33); Mean Corpuscular Volume 101.4 fl (82-101); Nucleated Red Blood Cells % 0 %; Platelet Count 276 10^3/cmm (157-399); Red Blood Count 2.22 10^6/uL (3.85-5.65); White Blood Count 15.21 10^3/uL (3.29-11.43)
[2025-01-06 03:40] LABS: Alanine Aminotransferase 11 U/L (0-41); Albumin Level 2.4 g/dL (3.5-5.2); Alkaline Phosphatase 203 U/L (40-130); Anion Gap 20.3 (5-19); Aspartate Amino Transferase 15 U/L (0-40); Blood Urea Nitrogen 41 mg/dL (8-23); Calcium 7.9 mg/dL (8.5-10.5); Carbon Dioxide 17 mmol/L (22-29); Chloride 105 mmol/L (98-107); Globulin 3.0 g/dL (1.3-4.6); Glucose 140 mg/dL (65-115); Magnesium 2.2 mg/dL (1.7-2.3); Osmolality Calculated 298 mOsm/kg (285-295); Potassium 4.3 mmol/L (3.5-5.1); Sodium 138 mmol/L (136-145); Total Protein 5.4 g/dL (6.6-8.7)
[2025-01-06 03:41] LABS: Creatinine Clr Calc Pharmacy 22.0941
[2025-01-06 05:02] LABS: Hematocrit 23.3 % (37-53); Hemoglobin 7.30 g/dL (11.27-16.99)
[2025-01-06] MEDS: polyethylene glycol 3350 Pkt 17 gm PO (05:04)
[2025-01-06] MEDS: sennosides-docusate Tablet 2 TAB PO ×2 (05:04→17:47)
[2025-01-06] MEDS: morphine 4 mg/mL SDV 1 mL 2 MG IVP (08:12)
[2025-01-06] MEDS: PRENATAL VIT NO.130/IRON/FOLIC 1 EACH TABLET PO (08:12)
--- NOTE | 2025-01-06 09:32 | PC.CHAP ---
Pastoral Care Encounter/Spiritual Assessment Type of Contact [] Declined instructional writer visit [] Patient/Family/Request visit [] Outpatient visit [] Follow-up visit [] Physician referral [] Code/Alert [x] Routine visit [] Staff referral [] Actively dying [x] Patient sleeping [] Family support [] [] Out of room [] Palliative care [] [] Receiving care in room [] Pre-surgical visit [] Trauma [] Long length of stay [] ICU visit [] Other: Relational/Emotional Strength [] Patient feels connected with others/family/visitors/staff [] Distress [] Loneliness/isolation [] Abandonment Spirituality of Patient [] Person of Tiny [] Attends Protestant of their Tiny [] Believes in Prayer [] Reads Bible or Christian materials [] There are Spiritual issues to be addressed Encapsulator Interventions [x] Prayer [] Active listening [] Non-anxious presence [] Spiritual/emotional support [] Crisis/trauma care [] Spiritual counseling [] Bereavement support [] Provided bereavement packet [] Provided Bible/devotional materials [] Provided toy/stuffed animal, coloring book to patient or family member [] Provided Communion [] Anointing/[place] [] Salvation [] Completed spiritual assessment [] Other: Impact on Illness or Injury [] Angry [] Fearful [] Anxious [] Often cries [] Exhaustion [] Unable to work [] Unable to attend hoahaoism [] Unable to walk/stand [] Unable to read [] Unable to drive [] Unable to eat/drink [] Unable to sleep [] Unable to be with family [] Patient intubated [] Other: Summary Time spent with patient
[2025-01-06 11:02] LABS: HIV 1 & 2 Antigen Non-Reactive (Non-Reactiv)
[2025-01-06] MEDS: meropenem 1,000 mg SDV 1000 MG IVP ×2 (11:11→21:51)
[2025-01-06 11:19] LABS: Hepatitis B Surface Antigen Non-Reactive (Nonreactive)
--- NOTE | 2025-01-06 16:19 | P.PN_ITS ---
Subjective 2 Subjective: No new complaints. WBC count improving at 15,000. Hemoglobin 7.3, up from 6.9 yesterday. Creatinine stable at 2.3. Blood culture reported positive for E. coli. Medications: Reviewed: Yes Vitals/I&O/Wt Last Vital Signs Temp 98.1 F 01/06/25 12:00 Pulse 94 01/06/25 12:00 Resp 16 01/06/25 12:00 BP 129/63 01/06/25 12:00 Pulse Ox 94 01/06/25 12:00 O2 Del Method Room Air 01/06/25 12:00 01/06/25 01/06/25 01/06/25 06:59 14:59 22:59 Intake Total 893.75 / 2133.75 120 / 120 Output Total 375 / 1200 Balance 518.75 / 933.75 120 / 120 Weight last 48 hrs Weight 65.952 kg Weight 64.773 kg Weight 64.592 kg Weight 81.647 kg Physical Exam 2 Narrative: General: No acute distress, AO x3 HEENT: PERRLA, pupils bilaterally equal and reactive, pallors not present Chest: Normal vesicular breath sounds, no added sounds, equal good air entry bilaterally CVS: S1-S2 regular, no murmurs, no tachycardia, no gallops, no rubs Abdomen: Soft, nontender, no organomegaly, bowel sounds present Neuro: No focal deficits, no facial deformity, AO x3, power 5/5 in all limbs Data 01/06/25 04:42 01/06/25 02:19 Micro: Microbiology 01/06/25 12:07 Blood Culture - Preliminary Blood SPECIMEN COLLECTED 01/06/25 12:03 Blood Culture - Preliminary Blood SPECIMEN COLLECTED 01/04/25 22:47 Urine Culture - Preliminary Urine,Clean Catch Gram Negative Rods Gram Negative Rods#2 01/04/25 22:49 Blood Culture - Preliminary Blood Escherichia coli 01/04/25 22:53 Blood Culture - Preliminary Blood Escherichia coli A&P Assessment and plan 1. Acute cystitis: 2. Urinary tract infection due to ESBL Klebsiella: 3. Weakness: 4. Acute on chronic renal failure: 5. Peripheral neuropathy: 6. Dehydration: 7. E. coli bacteremia: Plan: Acute cystitis with weakness and acute on chronic renal failure - Continue ertapenem; patient has a recent history of ESBL Klebsiella UTI - Follow cultures of the urine and of the blood and optimize accordingly - IV normal saline gentle hydration Acute on chronic renal failure secondary to infection - Treat underlying infection - Continue IV fluids - This will be for a desired return of renal function to baseline, most recent serum creatinines ranged between 1.4 and 1.7 Weakness - PT OT in place Discharge plan. Patient is prison resident will return. Too early to tell if patient will need IV antibiotics or can be converted to oral. January 06, 2025 84-year-old male prison resident, chronic indwelling Morelos catheter with a history of recurrent ESBL UTIs, chronic anemia, presented to the emergency room after being found to be [facility]argic at the prison. On arrival he had a white blood cell count of 27,000. Urine culture revealed gram-negative rods, 2 separate species each over 100,000 colonies. Awaiting further identification. Blood culture from admission has been reported positive this morning for E. coli. Per direct PCR isolate appears to be ESBL. Continue meropenem 1 g IV every 12 hours. Awaiting susceptibility information to see if patient may be able to transition to oral fluoroquinolones at the time of discharge versus needing IV antibiotics at discharge. Historically patient's prior ESBL isolates have been resistant to ciprofloxacin. CT of the abdomen and pelvis showed a 3mm stone in the bladder. And prostatomegaly. No obstructive process currently. Repeat blood cultures ordered today. PDMP PDMP Reviewed: Not Reviewed Attestations 2 Medical Necessity Statement*: Continued admission for E. coli bacteremia, need for IV antibiotics given ESBL isolate Coding Level of Care Code Acute Code for [facility] Diagnoses Acute cystitis N30.00 Urinary tract infection due to ESBL Klebsiella N39.0; B96.89 Weakness R53.1 Acute on chronic renal failure N17.9; N18.9 Peripheral neuropathy G62.9 Dehydration E86.0 E. coli bacteremia R78.81; B96.20
[2025-01-07] VITALS (10 sets, daily range): BP systolic 93–121; BP diastolic 54–70; PULSE 92–116; RESP 16–19; TEMP 36.4–36.9; O2SAT 84–98
[2025-01-07] MEDS: heparin 5,000 unit/mL INJ 1 mL 5000 UNIT SUBCUT ×2 (01:10→13:56)
[2025-01-07 05:12] LABS: Hematocrit 23.1 % (37-53); Hemoglobin 7.00 g/dL (11.27-16.99); Mean Corpuscular HGB Conc 30.3 g/dL (30-55); Mean Corpuscular Hemoglobin 31.3 pg (27-33); Mean Corpuscular Volume 103.1 fl (82-101); Nucleated Red Blood Cells % 0 %; Platelet Count 282 10^3/cmm (157-399); Red Blood Count 2.24 10^6/uL (3.85-5.65); White Blood Count 13.74 10^3/uL (3.29-11.43)
[2025-01-07 05:37] LABS: Alanine Aminotransferase 11 U/L (0-41); Albumin Level 2.4 g/dL (3.5-5.2); Alkaline Phosphatase 133 U/L (40-130); Anion Gap 24.5 (5-19); Aspartate Amino Transferase 23 U/L (0-40); Blood Urea Nitrogen 45 mg/dL (8-23); Calcium 8.5 mg/dL (8.5-10.5); Carbon Dioxide 15 mmol/L (22-29); Chloride 104 mmol/L (98-107); Creatinine Clr Calc Pharmacy 23.2681; Globulin 3.2 g/dL (1.3-4.6); Glucose 127 mg/dL (65-115); Osmolality Calculated 301 mOsm/kg (285-295); Potassium 4.5 mmol/L (3.5-5.1); Sodium 139 mmol/L (136-145); Total Protein 5.6 g/dL (6.6-8.7)
[2025-01-07] MEDS: meropenem 1,000 mg SDV 1000 MG IVP (10:03)
[2025-01-07] MEDS: PRENATAL VIT NO.130/IRON/FOLIC 1 EACH TABLET PO (10:03)
--- NOTE | 2025-01-07 10:04 | PC.CHAP ---
Pastoral Care Encounter/Spiritual Assessment Type of Contact [] Declined twx operator visit [] Patient/Family/Request visit [] Outpatient visit [] Follow-up visit [] Physician referral [] Code/Alert [] Routine visit [] Staff referral [] Actively dying [] Patient sleeping [] Family support [] [] Out of room [] Palliative care [] [x] Receiving care in room [] Pre-surgical visit [] Trauma [] Long length of stay [] ICU visit [] Other: Relational/Emotional Strength [] Patient feels connected with others/family/visitors/staff [] Distress [] Loneliness/isolation [] Abandonment Spirituality of Patient [] Person of Tiny [] Attends Lutheran of their Tiny [] Believes in Prayer [] Reads Bible or Confucianist materials [] There are Spiritual issues to be addressed Visually Impaired Teacher Interventions [] Prayer [] Active listening [] Non-anxious presence [] Spiritual/emotional support [] Crisis/trauma care [] Spiritual counseling [] Bereavement support [] Provided bereavement packet [] Provided Bible/devotional materials [] Provided toy/stuffed animal, coloring book to patient or family member [] Provided Communion [] Anointing/[place] [] Salvation [] Completed spiritual assessment [] Other: Impact on Illness or Injury [] Angry [] Fearful [] Anxious [] Often cries [] Exhaustion [] Unable to work [] Unable to attend synagogue [] Unable to walk/stand [] Unable to read [] Unable to drive [] Unable to eat/drink [] Unable to sleep [] Unable to be with family [] Patient intubated [] Other: Summary Time spent with patient
[2025-01-07 13:26] LABS: Pan Gram-Negative Detected (NOT DETECT)
--- NOTE | 2025-01-07 16:19 | P.PN_ITS ---
Subjective 2 Subjective: WBC count continues to trend down. Noted to be aspirating today on liquid diet. Changed to dysphagia 4. Medications: Reviewed: Yes Vitals/I&O/Wt Last Vital Signs Temp 98.4 F 01/07/25 15:51 Pulse 102 H 01/07/25 15:57 Resp 18 01/07/25 15:51 BP 114/63 01/07/25 15:51 Pulse Ox 91 01/07/25 15:51 O2 Del Method Nasal Cannula 01/07/25 15:51 01/07/25 01/07/25 01/07/25 06:59 14:59 22:59 Intake Total 240 / 240 Output Total 250 / 750 400 / 400 Balance -250 / 370 -160 / -160 Weight last 48 hrs Weight 113.398 kg Weight 65.952 kg Physical Exam 2 Narrative: General: No acute distress, AO x3 HEENT: PERRLA, pupils bilaterally equal and reactive, pallors not present Chest: Normal vesicular breath sounds, no added sounds, equal good air entry bilaterally CVS: S1-S2 regular, no murmurs, no tachycardia, no gallops, no rubs Abdomen: Soft, nontender, no organomegaly, bowel sounds present Neuro: No focal deficits, no facial deformity, AO x3, power 5/5 in all limbs Data 01/07/25 04:23 01/07/25 04:23 Micro: Microbiology 01/04/25 22:49 Blood Culture - Preliminary Blood Escherichia coli esbl 01/06/25 12:07 Blood Culture - Preliminary Blood NEGATIVE TO DATE 01/06/25 12:03 Blood Culture - Preliminary Blood NEGATIVE TO DATE 01/04/25 22:47 Urine Culture - Preliminary Urine,Clean Catch Escherichia coli esbl Gram Negative Rods#2 A&P Assessment and plan 1. Acute cystitis: 2. Urinary tract infection due to ESBL Klebsiella: 3. Weakness: 4. Acute on chronic renal failure: 5. Peripheral neuropathy: 6. Dehydration: 7. E. coli bacteremia: Plan: Acute cystitis with weakness and acute on chronic renal failure - Continue ertapenem; patient has a recent history of ESBL Klebsiella UTI - Follow cultures of the urine and of the blood and optimize accordingly - IV normal saline gentle hydration Acute on chronic renal failure secondary to infection - Treat underlying infection - Continue IV fluids - This will be for a desired return of renal function to baseline, most recent serum creatinines ranged between 1.4 and 1.7 Weakness - PT OT in place Discharge plan. Patient is care home resident will return. Too early to tell if patient will need IV antibiotics or can be converted to oral. January 06, 2025 84-year-old male care home resident, chronic indwelling Morelos catheter with a history of recurrent ESBL UTIs, chronic anemia, presented to the emergency room after being found to be lethargic at the care home. On arrival he had a white blood cell count of 27,000. Urine culture revealed gram-negative rods, 2 separate species each over 100,000 colonies. Awaiting further identification. Blood culture from admission has been reported positive this morning for E. coli. Per direct PCR isolate appears to be ESBL. Continue meropenem 1 g IV every 12 hours. Awaiting susceptibility information to see if patient may be able to transition to oral fluoroquinolones at the time of discharge versus needing IV antibiotics at discharge. Historically patient's prior ESBL isolates have been resistant to ciprofloxacin. CT of the abdomen and pelvis showed a 3mm stone in the bladder. And prostatomegaly. No obstructive process currently. Repeat blood cultures ordered today. January 07, 2025 Noted to be aspirating today. Speech therapy assessment ordered. Diet changed to dysphagia 4 in the interim. Blood culture updated to reflect ESBL E. coli. Will plan discharge on IV ertapenem 1 g daily to complete a total 7-day course of antibiotics for complicated UTI, likely related to chronic indwelling Morelos catheter PDMP PDMP Reviewed: Not Reviewed Attestations 2 Medical Necessity Statement*: Anticipate discharge in the upcoming 24 hours if blood cultures demonstrate clearance, leukocytosis continues to trend down, pending formal swallow assessment Coding Level of Care Code Acute Code for Chg Fwd High MDM includes number and complexity of problems actively addressed during encounter, amount and/or complexity of data reviewed/ordered and described risk of complication, morbidity or mortality of management as documented Diagnoses Acute cystitis N30.00 Urinary tract infection due to ESBL Klebsiella N39.0; B96.89 Weakness R53.1 Acute on chronic renal failure N17.9; N18.9 Peripheral neuropathy G62.9 Dehydration E86.0 E. coli bacteremia R78.81; B96.20
[2025-01-07] MEDS: sennosides-docusate Tablet 2 TAB PO (16:23)
[2025-01-08] MEDS: meropenem 1,000 mg SDV 1000 MG IVP (00:03)
[2025-01-08] MEDS: heparin 5,000 unit/mL INJ 1 mL 5000 UNIT SUBCUT (00:33)
[2025-01-08 03:59] VITALS: BP 125/68; PULSE 105; RESP 19; TEMP 35.9; O2SAT 94
[2025-01-08 05:08] LABS: Hematocrit 24.5 % (37-53); Hemoglobin 7.50 g/dL (11.27-16.99); Mean Corpuscular HGB Conc 30.6 g/dL (30-55); Mean Corpuscular Hemoglobin 31.4 pg (27-33); Mean Corpuscular Volume 102.5 fl (82-101); Nucleated Red Blood Cells % 0 %; Platelet Count 305 10^3/cmm (157-399); Red Blood Count 2.39 10^6/uL (3.85-5.65); White Blood Count 14.06 10^3/uL (3.29-11.43)
[2025-01-08 05:33] LABS: Alanine Aminotransferase 12 U/L (0-41); Albumin Level 2.3 g/dL (3.5-5.2); Alkaline Phosphatase 107 U/L (40-130); Anion Gap 19.7 (5-19); Aspartate Amino Transferase 22 U/L (0-40); Blood Urea Nitrogen 51 mg/dL (8-23); Calcium 8.5 mg/dL (8.5-10.5); Carbon Dioxide 18 mmol/L (22-29); Chloride 109 mmol/L (98-107); Creatinine Clr Calc Pharmacy 24.5335; Globulin 3.3 g/dL (1.3-4.6); Glucose 167 mg/dL (65-115); Osmolality Calculated 311 mOsm/kg (285-295); Potassium 4.7 mmol/L (3.5-5.1); Sodium 142 mmol/L (136-145); Total Protein 5.6 g/dL (6.6-8.7)
[2025-01-08] MEDS: sennosides-docusate Tablet 2 TAB PO (05:55)
[2025-01-08] MEDS: polyethylene glycol 3350 Pkt 17 gm PO (05:55)
[2025-01-08 07:55] VITALS: PULSE 99; RESP 16; O2SAT 90
[2025-01-08 08:00] VITALS: BP 102/56; PULSE 102; RESP 17; TEMP 36.4; O2SAT 90
--- NOTE | 2025-01-08 08:29 | PM.DCS ---
Discharge Providers Date of Admission: 01/05/25 00:38 Date of Discharge: January 08, 2025 Attending Provider at Admission: Angi Chavez MD Attending Provider at Discharge: Phyllis Connelly MD Primary Care Provider: Kay Johnson MD Diagnoses at Discharge Discharge Diagnosis 1. Acute cystitis: 2. Urinary tract infection due to ESBL Klebsiella: 3. Weakness: 4. Acute on chronic renal failure: 5. Peripheral neuropathy: 6. Dehydration: 7. E. coli bacteremia: Reason for Visit Reason for Visit: possible uti Hospital Course Hospital Course 84-year-old male [facility], chronic indwelling Morelos catheter with a history of recurrent ESBL UTIs, chronic anemia, presented to the emergency room after being [facility] to be [facility] the [facility]. On arrival he had a white blood cell count of 27,000. Urine culture revealed gram-negative rods, identified as ESBL E. coli. He received treatment with meropenem transitioned to iv ertapenem at discharge for total [address] of the abdomen and pelvis showed a 3mm stone in the bladder. And prostatomegaly. No obstructive process currently. Repeat blood cultures clear. WBC count has now normalized. He is discharged in improved conditioned. He was noted to be aspirating on regular diet during hospital course. Speech therapy has assessed the patient and recommends continuing dysphagia level 4 diet with thickened liquids. Physical Exam Narrative: General: No acute distress, AO x3, chronically ill appearing HEENT: PERRLA, pupils bilaterally equal and reactive, pallors not present Chest: Normal vesicular breath sounds, no added sounds, equal good air entry bilaterally CVS: S1-S2 regular, no murmurs, no tachycardia, no gallops, no rubs Abdomen: Soft, nontender, no organomegaly, bowel sounds present Neuro: No focal deficits, no facial deformity, AO x3, power 5/5 in all limbs Discharge Data Studies Completed and Pending Completed Studies During Hospitalization Category Date Time Status CT head wo con* [id number] Stat Cat Scan 01/04/25 22:[address] kidney stone [id number] Stat Cat Scan 01/04/25 22:07 Completed XR chest 1V portable [id number] Stat Exams 01/04/25 22:06 Completed Pending at discharge Category Date Time Status Blood Culture Stat Lab 01/04/25 22:53 Results Blood Culture Stat Lab 01/06/25 12:07 Results Hemoglobin A1C AM LABS Lab 01/06/25 02:19 Received Urine Culture Stat Lab 01/04/25 22:47 Results Radiology Impressions Chest X-Ray 01/04/25 22:06 IMPRESSION: 1. Minimal left lower lobe airspace opacity, favored to represent atelectasis. Superimposed airspace disease is not excluded. 2. Posterior left 7th rib fracture deformity, age-indeterminate. Correlate with physical exam. Head CT 01/04/25 22:06 IMPRESSION: 1. No acute intracranial process. 2. White matter changes favored to represent sequela of chronic microvascular disease. 3. Mildly improved hydrocephalus from 05/19/2024. Correlate for symptoms of normal pressure hydrocephalus. Abdomen/Pelvis CT 01/04/25 22:07 IMPRESSION: 1. A 3 mm stone in the dependent bladder, which may represent a passed stone. 2. Prostatomegaly. Correlate with PSA. 3. Moderate gaseous distension of the colon without mechanical obstruction. 4. Suggested osteopenia. 5. Incidental findings as above. Laboratory Results WBC 14.06 10^3/uL (3.29-11.43) H 01/08/25 04:33 RBC 2.39 10^6/uL (3.85-5.65) L 01/08/25 04:33 Hgb 7.50 g/dL (11.27-16.99) L 01/08/25 04:33 Hct 24.5 % (37-53) L 01/08/25 04:33 MCV 102.5 fl (82-101) H 01/08/25 04:33 MCH 31.4 pg (27-33) 01/08/25 04:33 MCHC 30.6 g/dL (30-55) 01/08/25 04:33 RDW 15.6 % (12.1-15.1) H 01/08/25 04:33 Plt Count 305 10^3/cmm (157-399) 01/08/25 04:33 MPV 9.6 fL (7.4-10.4) 01/08/25 04:33 Neut % (Auto) 78.9 % 01/08/25 04:33 Lymph % (Auto) 8.3 % 01/08/25 04:33 [place] % (Auto) 9.2 % 01/08/25 04:33 Eos % (Auto) 0.4 % 01/08/25 04:33 Baso % (Auto) 0.1 % 01/08/25 04:33 Neut # (Auto) 11.12 10^3/uL (1.8-7.7) H 01/08/25 04:33 Lymph # (Auto) 1.2 10^3/uL (0.8-4.8) 01/08/25 04:33 [place] # (Auto) 1.3 10^3/uL (0.2-0.9) H 01/08/25 04:33 Eos # (Auto) 0.1 10^3/uL (0.0-0.8) 01/08/25 04:33 Baso # (Auto) 0.0 10^3/uL (0.0-0.1) 01/08/25 04:33 Nucleated RBC % (auto) 0 % 01/08/25 04:33 Nucleated RBCs # 0.0 /100WBC 01/08/25 04:33 Sodium 142 mmol/L (136-145) 01/08/25 04:33 Potassium 4.7 mmol/L (3.5-5.1) 01/08/25 04:33 Chloride 109 mmol/L (98-107) H 01/08/25 04:33 Carbon Dioxide 18 mmol/L (22-29) L 01/08/25 04:33 Anion Gap 19.7 (5-19) H 01/08/25 04:33 BUN 51 mg/dL (8-23) H 01/08/25 04:33 Creatinine 2.1 mg/dL (0.7-1.2) H 01/08/25 04:33 GFR Calculation Not Reportable 01/08/25 04:33 Glucose 167 mg/dL (65-115) H 01/08/25 04:33 POC Glucose 171 mg/dL (70-110) H 01/08/25 06:10 Calculated Osmolality 311 mOsm/kg (285-295) H 01/08/25 04:33 Lactic Acid 1.8 mmol/L (0.5-2.2) 01/04/25 22:49 Calcium 8.5 mg/dL (8.5-10.5) 01/08/25 04:33 Phosphorus 3.5 mg/dL (2.5-4.5) 01/06/25 02:19 Magnesium 2.2 mg/dL (1.7-2.3) 01/06/25 02:19 Total Bilirubin 0.3 mg/dL (0.15-1.2) 01/08/25 04:33 AST 22 U/L (0-40) 01/08/25 04:33 ALT 12 U/L (0-41) 01/08/25 04:33 Alkaline Phosphatase 107 U/L (40-130) 01/08/25 04:33 C-Reactive Protein 306.3 mg/L (0.0-4.9) H 01/04/25 22:49 Total Protein 5.6 g/dL (6.6-8.7) L 01/08/25 04:33 Albumin 2.3 g/dL (3.5-5.2) L 01/08/25 04:33 Globulin 3.3 g/dL (1.3-4.6) 01/08/25 04:33 Urine Color [place] (Yellow) A 01/04/25 22:47 Urine Appearance Turbid (CLEAR) A 01/04/25 22:47 Urine pH 6.5 (5-7) 01/04/25 22:47 Ur Specific [place] 1.018 (1.005-1.030) 01/04/25 22:47 Urine Protein 3+ (Negative) A 01/04/25 22:47 Urine Glucose (UA) Negative (Normal) 01/04/25 22:47 Urine Ketones Negative (Negative) 01/04/25 22:47 Urine Blood 3+ (Negative) A 01/04/25 22:47 Urine Nitrate Positive (Negative) A 01/04/25 22:47 Urine Bilirubin 1+ (Negative) H 01/04/25 22:47 Urine Urobilinogen 1.0 mg/dL (Negative) 01/04/25 22:47 Ur Leukocyte Esterase 3+ (Negative) A 01/04/25 22:47 Urine RBC >100 /hpf (0-2) H 01/04/25 22:47 Urine WBC >100 /hpf (0-5) H 01/04/25 22:47 Ur Squamous Epith Cells 51-100 /hpf (0-5) 01/04/25 22:47 Amorphous Sediment Not Reportable 01/04/25 22:47 Urine Bacteria 4+ /hpf (NONE) H 01/04/25 22:47 Hyaline Casts 14.90 /lpf 01/04/25 22:47 Hep Bs Antigen Non-reactive (Nonreactive) 01/06/25 02:19 Hepatitis C Antibody Non-reactive (Nonreactive) 01/06/25 02:19 HIV 1&2 Ab & HIV 1 Ag Non-reactive (Non-Reactiv) 01/06/25 02:19 HIV 1&2 Antibody Non-reactive (Non-Reactiv) 01/06/25 02:19 Blood Type A Positive 01/06/25 04:42 Rho(D) Type Rh positive 01/06/25 04:42 Antibody Screen Negative 01/06/25 04:42 Vitals Last Vital Signs Temp 97.6 F 01/08/25 08:00 Pulse 102 H 01/08/25 08:00 Resp 17 01/08/25 08:00 BP 102/56 01/08/25 08:00 Pulse Ox 90 01/08/25 08:00 O2 Del Method Nasal Cannula 01/08/25 08:00 O2 Flow Rate 4 01/08/25 07:55 Discharge Plan Discharge Patient Disposition: Xfer SNF Condition: Stable Prescriptions: Continued mecobalamin (vitamin B12) 1,000 mcg tablet,chewable 1,000 mcg PO DAILY metoprolol succinate [Toprol XL] 50 mg tablet extended release 24 hr 50 mg PO DAILY trospium 20 mg tablet 20 mg PO DAILY Rx Instructions: administer on an empty stomach polyethylene glycol 3350 [Miralax] 17 gram/dose Powder 17 g PO QAM fluoxetine 20 mg capsule 20 mg PO QAM acetaminophen 325 mg Tablet 650 mg PO Q6H PRN (Reason: PAIN OR ELEVATED TEMP) atorvastatin 20 mg tablet 20 mg PO BEDTIME ipratropium-albuterol 0.5 mg-3 mg(2.5 mg base)/3 mL Solution For Nebulization 3 ml INHALATION Q6H PRN (Reason: Shortness Of Breath) sennosides-docusate sodium [Senokot-S] 8.6-50 mg Tablet 2 tab-cap PO BID magnesium hydroxide [Milk of Magnesia] 400 mg/5 mL Suspension 30 ml PO DAILY PRN (Reason: Constipation) phenazopyridine 95 mg Tablet 95 mg PO BID bisacodyl 10 mg Suppository 10 mg TN DAILY PRN (Reason: Constipation) omeprazole 20 mg capsule,delayed release(DR/EC) 20 mg PO QAM furosemide 20 mg tablet 20 mg PO .QODAM alum-mag hydroxide-simeth 200-200-20 mg/5 mL Suspension 30 ml PO Q8H PRN (Reason: UPSET STOMACH) Rx Instructions: administer between meals and at bedtime Glucagon Emergency Kit (human) 1 mg recon soln 1 mg IM ONCE PRN (Reason: Anaphylaxis) memantine 14 mg capsule,sprinkle,ER 24hr 14 mg PO QAM naloxone 2 mg/2 mL Syringe Kit 2 mg IM Q2M PRN (Reason: OVERDOSE) Rx Instructions: NTExceed 10 mg total dose/episode prenat.vits,claudette,pcv-ommk-kmfsy Tablet 1 tab PO DAILY Discharge Order = DC NOW: Discharge Order (Routine); Ordered 01/08/25 Ordered By: Phyllis Connelly Referrals: [facility] [Outside] Discharge Diet: As Directed Discharge Activity: Resume usual activity Patient Instructions: Ertapenem (By injection), E Coli Infection (GEN), Opioid Safety, Patient Portal & Steven Instructions Discharge Attestations Time Spent in Discharge Care*: greater than 30 min Quality Metrics Clinical Quality Measures [ No reported AMI, CVA or VTE this stay] Coding Level of Care Code Acute Code for g Fwd Diagnoses Acute cystitis N30.00 Urinary tract infection due to ESBL Klebsiella N39.0; B96.89 Weakness R53.1 Acute on chronic renal failure N17.9; N18.9 Peripheral neuropathy G62.9 Dehydration E86.0 E. coli bacteremia R78.81; B96.20
[2025-01-08] MEDS: PRENATAL VIT NO.130/IRON/FOLIC 1 EACH TABLET PO (09:23)
[2025-01-08] MEDS: ertapenem 1,000 mg SDV 1000 MG IVP (09:23)
--- NOTE | 2025-01-08 10:07 | PC.SOCIAL ---
IMM Update pg 2 of IMM Updated and reviewed w/ patient. Copy provided and copy dated, initialed and placed in chart.
--- NOTE | 2025-01-08 10:11 | PC.CHAP ---
Pastoral Care Encounter/Spiritual Assessment Type of Contact [] Declined dipper and baker visit [] Patient/Family/Request visit [] Outpatient visit [] Follow-up visit [] Physician referral [] Code/Alert [] Routine visit [] Staff referral [] Actively dying [] Patient sleeping [] Family support [] [] Out of room [] Palliative care [] [x] Receiving care in room [] Pre-surgical visit [] Trauma [] Long length of stay [] ICU visit [] Other: Relational/Emotional Strength [] Patient feels connected with others/family/visitors/staff [] Distress [] Loneliness/isolation [] Abandonment Spirituality of Patient [] Person of Tiny [] Attends Adventism of their Tiny [] Believes in Prayer [] Reads Bible or Baptism materials [] There are Spiritual issues to be addressed Bread Packer Interventions [] Prayer [] Active listening [] Non-anxious presence [] Spiritual/emotional support [] Crisis/trauma care [] Spiritual counseling [] Bereavement support [] Provided bereavement packet [] Provided Bible/devotional materials [] Provided toy/stuffed animal, coloring book to patient or family member [] Provided Communion [] Anointing/[place] [] Salvation [] Completed spiritual assessment [] Other: Impact on Illness or Injury [] Angry [] Fearful [] Anxious [] Often cries [] Exhaustion [] Unable to work [] Unable to attend methodist [] Unable to walk/stand [] Unable to read [] Unable to drive [] Unable to eat/drink [] Unable to sleep [] Unable to be with family [] Patient intubated [] Other: Summary Time spent with patient
[2025-01-08 11:29] VITALS: BP 116/71; PULSE 95; RESP 17; TEMP 36.4; O2SAT 93
[2025-01-08 14:22] VITALS: BP 116/71; PULSE 95; RESP 17; TEMP 36.4; O2SAT 93
[2025-01-08 14:27] LABS: Estmated Average Glucose 148; Hemoglobin A1C 6.8 % (4.0-6.0)
== END 2025-01-08 13:50 | disposition skilled nursing facility (03) | DRG 698 ==
LOC: ER 01-05 00:57 → MEDSURG 01-05 01:26
PROVIDERS: Internal Medicine; Admitting Provider Internal Medicine; Emergency Provider Emergency Medicine; PCP Internal Medicine; Visit Provider Student in an Organized Health Care Education/Training Program
DX: T83.511A Infection and inflammatory reaction due to indwelling urethral catheter, initial encounter (principal); A41.51 Sepsis due to Escherichia coli [E. coli]; J15.0 Pneumonia due to Klebsiella pneumoniae; N30.00 Acute cystitis without hematuria; Z16.12 Extended spectrum beta lactamase (ESBL) resistance; N17.9 Acute kidney failure, unspecified; E87.1 Hypo-osmolality and hyponatremia; Z87.440 Personal history of urinary (tract) infections; I12.9 Hypertensive chronic kidney disease with stage 1 through stage 4 chronic kidney disease, or unspecified chronic kidney disease; N18.9 Chronic kidney disease, unspecified; E11.42 Type 2 diabetes mellitus with diabetic polyneuropathy; E11.22 Type 2 diabetes mellitus with diabetic chronic kidney disease; D63.1 Anemia in chronic kidney disease; N21.0 Calculus in bladder; N40.1 Benign prostatic hyperplasia with lower urinary tract symptoms; E55.9 Vitamin D deficiency, unspecified; K21.9 Gastro-esophageal reflux disease without esophagitis; J44.9 Chronic obstructive pulmonary disease, unspecified; E78.5 Hyperlipidemia, unspecified; Z79.82 Long term (current) use of aspirin; Z83.3 Family history of diabetes mellitus; Y73.1 Therapeutic (nonsurgical) and rehabilitative gastroenterology and urology devices associated with adverse incidents; E86.0 Dehydration; F32.9 Major depressive disorder, single episode, unspecified; R13.10 Dysphagia, unspecified
CPT/HCPCS: 36415; 36416; 70450; 71045; 74176; 80048; 80053; 81001; 82962; 83036; 83605; 83735; 84100; 85014; 85018; 85025; 86140; 86803; 86850; 86900; 87040; 87077; 87086; 87150; 87186; 87205; 87340; 87806; 92523; 92610; 96372; 96374; 99285; J0696; J1335; J1644; J1815; J2185; J2270; J7030; J9999